=== PATIENT | female | born 1945 | race Caucasian/White ===

== ENCOUNTER 2021-05-20 02:55 | Inpatient (IN) | payer MEDICARE, SELFPAY ==
[2021-05-20] VITALS (28 sets, daily range): BP systolic 134–200; BP diastolic 68–120; PULSE 81–162; RESP 18–23; TEMP 36.6–36.9; O2SAT 94–99; BMI 30.9; BMI 32.8
--- NOTE | 2021-05-20 03:08 | ECG_ITS ---
APPROVED REPORT Exam: Resting ECG HR:155 bpm ECG Measurements Heart Rate 155 AXES QRSd 80 QRS 95 QT 262 T 66 QTc 420 Conclusion Atrial fibrillation with rapid ventricular response Rightward axis ST depression, consider subendocardial injury or digitalis effect Abnormal ECG Electronically signed by : Eric Maldonado MD 05/22/2021 20:43:38
--- NOTE | 2021-05-20 03:15 | XR_ITS ---
PROCEDURE INFORMATION: Exam: XR Chest Exam date and time: 05/20/2021 3:15 AM Age: 75 years old Clinical indication: Other: HTN, rapid heartrate; Additional info: HTN, rapid hr TECHNIQUE: Imaging protocol: XR of the chest. Views: 1 view. COMPARISON: No relevant prior studies available. FINDINGS: Lungs: Unremarkable. No consolidation. Pleural spaces: Unremarkable. No pleural effusion. No pneumothorax. Heart/Mediastinum: Unremarkable. No cardiomegaly. Bones/joints: Unremarkable. IMPRESSION: No acute findings.
[2021-05-20 03:24] LABS: Basophils # 0.3 K/mm3 (0-0.2); Basophils % 2.3 % (0.1-2.0); Eosinophils # 0.4 K/mm3 (0.0-0.4); Eosinophils % 3.2 % (0.1-12.0); Hematocrit 42.9 % (37.0-47.0); Hemoglobin 14.2 g/dL (12.2-16.2); Lymphocytes # 2.3 K/mm3 (0.7-4.5); Mean Corpuscular HGB Conc 33.2 g/dL (31.8-35.4); Mean Corpuscular Hemoglobin 29.7 pg (27.0-31.2); Mean Corpuscular Volume 89.5 fl (81-99); Mean Platelet Volume 8.2 fl (7.4-10.4); Monocytes # 0.4 K/mm3 (0.1-1.0); Monocytes % 3.1 % (1.7-9.3); Neutrophils # 8.7 K/mm3 (1.8-7.8); Neutrophils % 72.4 % (37.0-80.0); Platelet Count 376 K/mm3 (142-424); Red Blood Count 4.79 M/mm3 (4.20-5.40); Red Cell Distribution Width 14.9 % (11.5-17.5); White Blood Count 12.1 K/mm3 (4.8-10.8)
[2021-05-20 03:27] LABS: Chloride 93 mmol/L (98-107)
[2021-05-20 03:28] LABS: Potassium 3.7 mmoL/L (3.5-5.1); Sodium 135 mmol/L (136-145)
[2021-05-20 03:30] LABS: Amylase 46 U/L (30-110); Blood Urea Nitrogen 17 mg/dl (7-17); Creatinine Clearance Estimated 65 mL/min (50-200); Estimated Glomerular Filt Rate 82 ml/min (>60); GFR (African American) 99 ML/MIN (>60)
[2021-05-20 03:31] LABS: Alanine Aminotransferase 21 U/L (12-78); Albumin Level 4.4 g/dl (3.5-5.0); Albumin/Globulin Ratio 1.1 (1.1-1.8); Alkaline Phosphatase 80 U/L (38-126); Anion Gap 16.7 mEq/L (5-15); Aspartate Amino Transferase 25 U/L (14-36); Bilirubin,Total 0.2 mg/dl (0.2-1.3); Calcium 9.8 mg/dl (8.4-10.2); Carbon Dioxide 29 mmol/L (22.0-30.0); Globulin 3.9 g/dL (1.3-3.2); Glucose 161 mg/dl (74-100); Lipase 61 U/L (23-300); Magnesium 1.4 mg/dl (1.6-2.3); Total Protein,Serum 8.3 g/dl (6.3-8.2)
[2021-05-20 03:32] LABS: Coronavirus 19, PCR Not Detected (NotDetected); Influenza A, PCR Not Detected (NotDetected); Influenza B, PCR Not Detected (NotDetected)
[2021-05-20 03:36] LABS: C-Reactive Protein 36.6 mg/L (0-4)
[2021-05-20 03:45] LABS: Troponin I 0.02 ng/ml (0.00-0.034)
[2021-05-20 03:50] LABS: T4 (Thyroxine) 10.4 ug/dl (5.53-11.0)
[2021-05-20 04:02] LABS: Erythrocyte Sedimentation Rate 22 mm/hr (0-30)
[2021-05-20 04:04] LABS: Thyroid Stimulating Hormone 3.81 uIU/mL (0.465-4.68)
--- NOTE | 2021-05-20 04:20 | PC.NURSE ---
Increased Cardizem drip to 10mg/hr
--- NOTE | 2021-05-20 04:36 | HMH.EDARPALP ---
ED Disposition Clinical Impression: Atrial fibrillation Qualifiers: Atrial fibrillation type: unspecified Qualified Code(s): I48.91 - Unspecified atrial fibrillation Disposition: Admitted As Inpatient Condition on Discharge: Good Referrals: Radha Neville MD [Primary Care Provider] - - Critical Care Critical Care Time: No Attestation: On 05/20/21, the high probability of a clinically significant, sudden or life threatening deterioration of the following system(s) required my full and direct attention, intervention and personal management. The time I documented below is in addition to time spent performing reported procedures but includes the following listed in this critical care notation. Medical Decision Making - Medical Records Medical records reviewed: Yes: I reviewed the patient's medical records. - Frank Inquiry Pt receiving controlled substance: No Vital Signs: 05/20/21 03:10 05/20/21 03:31 05/20/21 03:35 Temperature 97.9 F Temperature Source Oral Pulse Rate 136 H 142 H Pulse Rate [Right] 162 H Respiratory Rate 22 19 18 Blood Pressure 186/107 H 147/68 H Blood Pressure [Right Arm] 180/120 H Blood Pressure Mean 112 94 Blood Pressure Mean [Right Arm] 140 Blood Pressure Source [Right Arm] Manual Cuff/ Auscultation Blood Pressure Position [Right Arm] Supine 02 Sat by Pulse Oximetry 99 97 98 Oxygen Delivery Method Room Air Room Air Room Air 05/20/21 03:57 05/20/21 04:02 05/20/21 04:10 Temperature Temperature Source Pulse Rate 104 H 107 H 124 H Pulse Rate [Right] Respiratory Rate 18 Blood Pressure 173/85 H 177/76 H 172/95 H Blood Pressure [Right Arm] Blood Pressure Mean 89 94 109 Blood Pressure Mean [Right Arm] Blood Pressure Source [Right Arm] Blood Pressure Position [Right Arm] 02 Sat by Pulse Oximetry 96 Oxygen Delivery Method Room Air Room Air Room Air 05/20/21 04:15 Temperature Temperature Source Pulse Rate 132 H Pulse Rate [Right] Respiratory Rate 19 Blood Pressure Blood Pressure [Right Arm] Blood Pressure Mean Blood Pressure Mean [Right Arm] Blood Pressure Source [Right Arm] Blood Pressure Position [Right Arm] 02 Sat by Pulse Oximetry 95 Oxygen Delivery Method Room Air - Lab Data Lab results reviewed: Yes: I reviewed the patient's lab results. Lab Results 05/20/21 03:09: WBC 12.1 H, RBC 4.79, Hgb 14.2, Hct 42.9, MCV 89.5, MCH 29.7, MCHC 33.2, RDW 14.9, Plt Count 376, MPV 8.2, Neut % (Auto) 72.4, Lymph % (Auto) 19.0, [place] % (Auto) 3.1, Eos % (Auto) 3.2, Baso % (Auto) 2.3 H, Neut # (Auto) 8.7 H, Lymph # (Auto) 2.3, [place] # (Auto) 0.4, Eos # (Auto) 0.4, Baso # (Auto) 0.3 H 05/20/21 03:09: Sodium 135 L, Potassium 3.7, Chloride 93 L, Carbon Dioxide 29, Anion Gap 16.7 H, BUN 17, Creatinine 0.70, Estimated Creat Clear 65, Estimated GFR 82, Est GFR ( Amer) 99, Glucose 161 H, Calcium 9.8, Total Bilirubin 0.2, AST 25, ALT 21, Alkaline Phosphatase 80, Troponin I 0.02, C-Reactive Protein 36.6 H, Total Protein 8.3 H, Albumin 4.4, Globulin 3.9 H, Albumin/Globulin Ratio 1.1, Amylase 46, Lipase 61, TSH 3.81, Thyroxine (T4) 10.4 05/20/21 03:09: ESR 22 05/20/21 03:09: Magnesium 1.4 L, Procalcitonin 0.060 05/20/21 03:28: SARS-CoV-2 (PCR) Not detected, Influenza A Untype (PCR) Not detected, Influenza Type B (PCR) Not detected Result diagrams: 05/20/21 03:09 05/20/21 03:09 Orders (Tests/Meds): ED MEDICATIONS Generic Name Dose Route Start Last Admin Trade Name Freq PRN Reason Stop Dose Admin Sodium Chloride 1,000 mls @ 999 mls/hr 05/20/21 03:30 05/20/21 03:15 Sod Chlor 0.9% 1000ml Bag IV 05/20/21 04:30 999 mls/hr .Q1H1M NILE Administration Diltiazem HCl 100 mg/ Sodium 100 mls @ 5 mls/hr 05/20/21 03:30 05/20/21 03:30 Chloride IV 06/19/21 03:29 5 mls/hr .Q20H NILE Administration Protocol Discontinued Medications Generic Name Dose Route Start Last Admin Trade Name Freq PRN Reason Stop Dose Admin
--- NOTE | 2021-05-20 04:56 | PC.NURSE ---
Dr Herron speaking to Dr Stringer for admission
--- NOTE | 2021-05-20 04:57 | PC.NURSE ---
lovenox dose per night watch
--- NOTE | 2021-05-20 05:26 | PC.NURSE ---
patient up to floor via stretcher.
[2021-05-20 06:10] LABS: POC Glucose,Bedside 149 (70-110)
[2021-05-20 06:27] LABS: Basophils # 0.1 K/mm3 (0-0.2); Basophils % 0.9 % (0.1-2.0); Eosinophils # 0.2 K/mm3 (0.0-0.4); Eosinophils % 2.3 % (0.1-12.0); Hematocrit 37.7 % (37.0-47.0); Lymphocytes # 1.6 K/mm3 (0.7-4.5); Lymphocytes % 16.5 % (10-50); Mean Corpuscular HGB Conc 32.9 g/dL (31.8-35.4); Mean Corpuscular Hemoglobin 29.6 pg (27.0-31.2); Mean Corpuscular Volume 89.9 fl (81-99); Mean Platelet Volume 8.3 fl (7.4-10.4); Monocytes # 0.3 K/mm3 (0.1-1.0); Monocytes % 2.7 % (1.7-9.3); Neutrophils # 7.7 K/mm3 (1.8-7.8); Neutrophils % 77.6 % (37.0-80.0); Platelet Count 251 K/mm3 (142-424); Red Cell Distribution Width 14.9 % (11.5-17.5); White Blood Count 9.9 K/mm3 (4.8-10.8)
[2021-05-20 06:29] LABS: Hemoglobin 12.4 g/dL (12.2-16.2)
[2021-05-20 07:03] LABS: Anion Gap 15.9 mEq/L (5-15); Blood Urea Nitrogen 15 mg/dl (7-17); Calcium 8.5 mg/dl (8.4-10.2); Carbon Dioxide 24 mmol/L (22.0-30.0); Chloride 99 mmol/L (98-107); Chol/HDL Ratio 6.4 (1-3.5); Cholesterol 166 mg/dl (140-200); Creatinine Clearance Estimated 69 mL/min (50-200); Estimated Glomerular Filt Rate 121 ml/min (>60); GFR (African American) 146 ML/MIN (>60); Glucose 151 mg/dl (74-100); HDL Cholesterol 26 mg/dl (40-60); Potassium 3.9 mmoL/L (3.5-5.1); Sodium 135 mmol/L (136-145); Triglycerides 142 mg/dl (30-150); VLDL Cholesterol 28 mg/dL (0-40)
[2021-05-20 07:13] LABS: Direct LDL Cholesterol 112.27 mg/dL (100-129)
[2021-05-20 07:14] LABS: Troponin I 0.02 ng/ml (0.00-0.034)
[2021-05-20 07:26] LABS: Microscopic, Urine URINE MICROSCOPIC (MICROSCOPIC)
[2021-05-20 07:27] LABS: Appearance,Urine CLEAR (Clear); Bilirubin,Urine Negative (Negative); Blood, Urine Negative (Negative); Color,Urine YELLOW (Yellow); Glucose,Urine (UA) Negative (Negative); Ketones,Urine Negative (Negative); Leukocyte Esterase,Urine Negative (Negative); Nitrate,Urine Negative (Negative); PH,Urine 6.5 (5.0-8.5); Protein,Urine TRACE (Negative); Specific Gravity, Urine 1.015 (1.005-1.030); Urobilinogen,Urine 0.2 EU/dl (0.2)
[2021-05-20 07:35] LABS: Bacteria,Urine Trace /lpf; RBC,Urine Occasional #/hpf (0-3)
[2021-05-20 10:21] LABS: Troponin I 0.02 ng/ml (0.00-0.034)
--- NOTE | 2021-05-20 10:37 | P.CONPHA_ITS ---
[facility] Pharmacy VTE Monitoring - Patient Demographics Admission date: 05/20/21 Report Date: 05/20/21 Time: 10:37 Allergies/Adverse Reactions: Patient Allergies No Known Allergies Allergy (Verified 05/20/21 03:15) Height: 1.63 m Weight: 87.203 kg Patient Problems: Current Active Problems Atrial fibrillation (Acute) - VTE Risk Labs: VTE Related Lab Results Hgb 12.4 g/dL (12.2-16.2) D 05/20/21 06:10 Hct 37.7 % (37.0-47.0) 05/20/21 06:10 Plt Count 251 K/mm3 (142-424) D 05/20/21 06:10 BUN 15 mg/dl (7-17) 05/20/21 06:10 Creatinine 0.50 mg/dl (0.52-1.04) L D 05/20/21 06:10 Estimated Creat Clear 69 mL/min (50-200) 05/20/21 06:10 - Prophylaxis VTE Prophylaxis Ordered?: Yes Types of VTE Prophylaxis: TEDS Knee High, Pharmacological Location of Applied Device: Bilateral Lower Extremeties Pharmacologic Type: Enoxaparin
--- NOTE | 2021-05-20 10:38 | HMH.PHAINT ---
MEDICATION RECONCILIATION COMPLETED ON PATIENT USING EXTERNAL FILL HISTORY FROM PHARMACY. -YESSICA CYR, DUNGD
--- NOTE | 2021-05-20 10:59 | PC.NURSE ---
Addendum entered by Lindsey Serrano RN 05/20/21 16:44: 1500 - HR 80's, cardizem gtt decreased to 5 mls/hr Addendum entered by Lindsey Serrano RN 05/20/21 15:34: 1300 - HR 80-90's, cardizem gtt decreased to 10 mls/hr Original Note: 0900 - HR 120's, cardizem gtt increased to 15 mls/hr
[2021-05-20 11:15] LABS: POC Glucose,Bedside 190 (70-110)
--- NOTE | 2021-05-20 11:37 | HMH.HP ---
*Admission Date: 05/20/21 *Chief complaint: Heart irregularity *History of present illness: This 75-year-old white female was admitted through the emergency room with an episode of atrial fibrillation. She states that she could tell a difference in how she was feeling over the past 4 days. She had some slight shortness of breath but no chest pain. The history she gives is a little unclear but it appears that she was hospitalized previously for heart irregularity. She had some sort of cardiac event in 1995. She states she did not have a heart catheterization at that point but did have an echocardiogram. A heart catheterization was performed by Dr. Lui Mercado in September 2014. This was at [facility] in [place]. She is a new patient of Dr. Burciaga. She is known diabetic and hypertensive. She also has a gout history. She has not been on blood thinners recently. [facility] History Medical History: Reports:: Atrial Fibrillation, Diabetes Mellitus Type 2 (Since 2003 diagnosis), Hyperlipidemia, Hypertension, Palpitations Denies:: Valvular Heart Disease *Have you ever received a pneumonia vaccine?: Yes *Have you received a flu vaccine this season?: Yes Other Medical History: Reports: Hypothyroidism (Levothyroxine 50 mcg daily) Other Surgeries: Yes: Appendectomy (Incidental February 1975), Cardiac Catheterization (September 2014 Dr. 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) *Travel in the last 8 weeks: None Family Hx:: Cancer (Father prostate, mother breast), Diabetes (Mother and brother), Alcoholism (Brother), Other (Sister of COVID-19) : 0 Para: 0 LMP comments: post menopausal Review of Systems - Constitutional Denies body ache(s), Denies chills - Eyes Denies change in vision - ENT Denies bleeding gums, Denies dizziness, Denies hoarseness, Denies neck pain, Denies throat swelling - *Cardiovascular Reports irregular heart rhythm, Reports leg swelling, Reports fast heart rate, Denies chest pain - *Respiratory Denies chest congestion, Denies cough - *Gastrointestinal Reports other (Complains of weight gain over the past several years), Denies abdominal pain - *Genitourinary Reports absent period - *Musculoskeletal Reports joint pain - Integumentary/Breasts Denies bleeding lesions - *Neurologic Denies seizure-like activity - Psychiatric Denies behavioral changes - Hematologic/Lymphatic Denies easy bleeding Meds Home Medications Medication Instructions Recorded Confirmed Type Levothyroxine Sodium 50 mcg PO DAILY 05/20/21 05/20/21 History [Levothyroxine 50mcg (0.05mg) Tab] Losartan/Hydrochlorothiazide 1 tab PO DAILY 05/20/21 05/20/21 History [Losartan-Hctz 100-25 mg Tab] Metoprolol Tartrate [Lopressor 100 100 mg PO BID 05/20/21 05/20/21 History mg Tablets] Potassium Chloride [Klor-Con M10] 10 meq PO DAILY 05/20/21 05/20/21 History allopurinoL [Allopurinol 100mg 100 mg PO DAILY 05/20/21 05/20/21 History tablet] glipiZIDE [Glucotrol 5mg tablet] 5 mg PO BID 05/20/21 05/20/21 History Allergies Allergy/AdvReac Type Severity Reaction Status Date / Time No Known Allergies Allergy Verified 05/20/21 03:15 Exam Vital signs and Labs for Last 24 Hours: Temp Pulse Resp BP Pulse Ox 98.1 F 97 H 19 146/69 H 96 05/20/21 08:00 05/20/21 11:01 05/20/21 11:01 05/20/21 11:01 05/20/21 11:01 Laboratory Results - last 24 hr 05/20/21 03:09: WBC 12.1 H, RBC 4.79, Hgb 14.2, Hct 42.9, MCV 89.5, MCH 29.7, MCHC 33.2, RDW 14.9, Plt Count 376, MPV 8.2, Neut % (Auto) 72.4, Lymph % (Auto) 19.0, [place] % (Auto) 3.1, Eos % (Auto) 3.2, Baso % (Auto) 2.3 H, Neut # (Auto) 8.7 H, Lymph # (Auto) 2.3, [place] # (Auto) 0.4, Eos # (Auto) 0.4, Baso # (Au
--- NOTE | 2021-05-20 12:26 | PC.NURSE ---
paged Dr. Akhtar for consult.
--- NOTE | 2021-05-20 12:28 | PC.NURSE ---
Spoke with Dr. Akhtar about consult.
--- NOTE | 2021-05-20 16:46 | PC.NURSE ---
No acute changes. Remains on room air. A-Fib on tely, HR 80-90's. BP much better controlled since adding lopressor. Pt independent w/ adl's. No needs voiced.
[2021-05-20 17:28] LABS: POC Glucose,Bedside 116 (70-110)
[2021-05-20 20:17] LABS: POC Glucose,Bedside 195 (70-110)
[2021-05-21] VITALS (14 sets, daily range): BP systolic 115–187; BP diastolic 65–92; PULSE 59–91; RESP 16–22; TEMP 36.5–36.8; O2SAT 95–100; BMI 33.3
--- NOTE | 2021-05-21 00:05 | ECG_ITS ---
APPROVED REPORT Exam: Resting ECG HR:63 bpm ECG Measurements Heart Rate 63 AXES RI 186 P 85 QRSd 104 QRS 55 QT 438 T 56 QTc 448 Conclusion Normal sinus rhythm Incomplete right bundle branch block Borderline ECG Electronically signed by : Eric Maldonado MD 05/22/2021 20:41:07
--- NOTE | 2021-05-21 00:36 | PC.NURSE ---
2330 patient converted to sr, with rate in the 60s. ekg obtained and placed on chart. 0010 dr. maldonado notified, new order received and carried out. cardizem drip stopped.
--- NOTE | 2021-05-21 06:17 | PC.NURSE ---
patient has maintained sb/sr 50s to 70s
[2021-05-21 08:02] LABS: Anion Gap 16.3 mEq/L (5-15); Blood Urea Nitrogen 15 mg/dl (7-17); Calcium 8.6 mg/dl (8.4-10.2); Carbon Dioxide 21 mmol/L (22.0-30.0); Chloride 101 mmol/L (98-107); Creatinine Clearance Estimated 70 mL/min (50-200); Estimated Glomerular Filt Rate 121 ml/min (>60); GFR (African American) 146 ML/MIN (>60); Glucose 100 mg/dl (74-100); Potassium 4.3 mmoL/L (3.5-5.1); Sodium 134 mmol/L (136-145)
[2021-05-21 11:06] LABS: POC Glucose,Bedside 116 (70-110)
[2021-05-21 11:06] LABS: POC Glucose,Bedside 130 (70-110)
--- NOTE | 2021-05-21 12:30 | HMH.ACPN2 ---
Internal Medicine - PN: Subj *Date: 05/21/21 *Time: 12:30 Interval history: The patient converted to normal sinus rhythm at 2330 last night. Cardizem drip was discontinued. She received 120 mg of Cardizem CD p.o. around 3:00 this morning. She remains in normal sinus rhythm but her blood pressures have been high. She is feeling well. Weight increase noted. Exam Vital signs and Labs for Last 24 Hours: Temp Pulse Resp BP Pulse Ox 98.3 F 72 22 187/85 H 100 05/21/21 11:21 05/21/21 10:54 05/21/21 10:54 05/21/21 10:54 05/21/21 10:54 Laboratory Results - last 24 hr 05/20/21 17:16: POC Glucose 116 H 05/20/21 19:59: POC Glucose 195 H 05/21/21 06:14: POC Glucose 116 H 05/21/21 06:25: Sodium 134 L, Potassium 4.3, Chloride 101, Carbon Dioxide 21 L, Anion Gap 16.3 H, BUN 15, Creatinine 0.50 L, Estimated Creat Clear 70, Estimated GFR 121, Est GFR ( Amer) 146, Glucose 100, Calcium 8.6 05/21/21 10:58: POC Glucose 130 H I & O for Last 24 hours: Intake & Output 05/19/21 05/20/21 05/21/21 05/22/21 11:59 11:59 11:59 11:59 Intake Total 2600 / 2600 2383 / 2383 Output Total 400 / 400 1300 / 1300 Balance 2200 / 2200 1083 / 1083 Weight 192 lb 4 oz 195 lb 3 oz - Constitutional no acute distress - *Routine HEENT Exam Head: Present: normocephalic Eye: Present: PERRL ENT: Present: mucous membranes moist - *Routine Neck Exam Present: supple. Absent: JVD - *Routine Respiratory Exam Present: CTA bilaterally, rales (Only a few bibasilar) - *Routine Cardiovascular Exam Present: RRR - *Routine Abdominal Exam Present: soft, obese. Absent: tenderness - *Routine Extremities Exam Present: edema (Trace) - *Routine Skin Exam Present: intact - *Routine Neurological Exam Present: alert, oriented X3 Assessment and Plan (1) Atrial fibrillation Status: Acute Qualifiers: Atrial fibrillation type: unspecified Qualified Code(s): I48.91 - Unspecified atrial fibrillation Category: Medical Code(s): I48.91 - Unspecified atrial fibrillation (2) Hypertensive cardiovascular disease Status: Acute Category: Medical Code(s): I11.9 - Hypertensive heart disease without heart failure (3) Type 2 diabetes mellitus Status: Acute Category: Medical Code(s): E11.9 - Type 2 diabetes mellitus without complications (4) Hypothyroidism (acquired) Status: Acute Category: Medical Code(s): E03.9 - Hypothyroidism, unspecified (5) Tremor Status: Acute Category: Medical Code(s): R25.1 - Tremor, unspecified (6) Mixed hyperlipidemia Status: Acute Category: Medical Code(s): E78.2 - Mixed hyperlipidemia - Assessment and plan all Dx Assessment and Plan for all problems:: Saline lock IV. Give additional Cardizem CD 120 mg now with the plan to continue 240 mg daily. Lasix 20 mg x 1 and recognition of the weight change. Echocardiogram is ordered.
[2021-05-21 15:51] LABS: POC Glucose,Bedside 126 (70-110)
--- NOTE | 2021-05-21 16:19 | PC.NURSE ---
No acute changes. Remains in SR, rate 70-80's. VS remain stable. Remains on room air. Is independent w/ adl's. Voiding w/o difficulty. No BM this shift. Sat up in recliner for most of morning. here to visit this AM. No complaints voiced. Currently sitting up in bed reading book.
[2021-05-21 21:43] LABS: POC Glucose,Bedside 157 (70-110)
[2021-05-22] VITALS: PULSE 70
--- NOTE | 2021-05-22 03:55 | PC.NURSE ---
No acute changes noted. Pt has rested well. No complaints voiced. VSS. HR 70s-80s. Pt has been up to chair some this shift. She remains on RA. Crackles noted to bases. No c/o of soa. Medications administered per mar. No other concerns. Will continue to monitor.
[2021-05-22 04:00] VITALS: BP 145/77; PULSE 70; PULSE 74; RESP 16; TEMP 36.6; O2SAT 96
[2021-05-22 06:13] LABS: POC Glucose,Bedside 100 (70-110)
[2021-05-22 08:02] VITALS: PULSE 88
[2021-05-22 08:45] VITALS: BP 154/78; PULSE 83; RESP 18; TEMP 36.7; O2SAT 100
--- NOTE | 2021-05-22 09:05 | HMH.CNCARD ---
History of Present Illness Consult date: 05/22/21 Requesting physician: Radha Neville Consult reason: atrial fibrillation Chief complaint: Atrial fib with RVR History of present illness: 75-year-old female admitted to [facility] with atrial fibrillation with RVR on 05/20/21. Patient stated she had not been feeling well for the past 4 days prior to arriving to the ED. Patient states increased shortness of breath and does feel like her heart was racing. Upon arrival to the ED patient was noted to be in atrial fibrillation with RVR with a heart rate of 155 bpm. Patient states she does have history of atrial fibrillation but that has been several years ago. Patient was started on a Cardizem drip at that time. Patient did convert to normal sinus rhythm and therefore Cardizem drip was DC'd. Patient was given 1 dose of diltiazem 120 mg per PCP for heart rate control and blood pressure control. Patient is not on any anticoagulants. Patient is receiving Lovenox SQ twice daily. hall monitor this a.m. reveals normal sinus with a heart rate of 72 bpm. Patient denies chest pain, tightness or pressure. Patient denies shortness of breath. Patient is not requiring supplemental oxygen due to pulse ox 96% on room air. Patient denies palpitations or dizziness. Patient states while her heart rate was racing she did experience the dizziness. Patient states once her heart rate slowed down the dizziness resolved. Patient does have history of diabetes which is controlled per patient. Patient does have history of hypertension and hyperlipidemia. Patient states she is not been seen by repair order clerk since 2014 in which she was evaluated by Dr. Mercado. In 2014 patient did undergo left heart catheterization in which patient states she was told her heart was just fine. Patient has had no cardiac work-up since 2015. Patient does have slight lower extremity edema. Patient is noted to be hypertensive this a.m. Patient is currently on beta-marry for heart rate and blood pressure control. Patient is on ARB for blood pressure control. No echocardiogram has been performed previously prior to this admission. Discussed plan of care with Dr. Akhtar. Orders were received from Dr. Akhtar. Patient will need to be started on Xarelto 20 mg daily due to Paroxsymal atrial fibrillation. Due to history of atrial fibrillation, patient is at an increased risk for stroke. ChADsvasc score 2. I did have a discussion with patient regarding starting on anticoagulant due to atrial fibrillation and high risk for stroke. Patient is to notify cardiology or PCP if bleeding occurs after starting the Xarelto. Patient is agreeable to start on anticoagulation. Echocardiogram to be obtained to assess LV function and valve status. Would recommend CNI to determine carotid artery stenosis due to atrial fibrillation. Recommend ischemic cardiac work-up on an outpatient basis such as a Lexiscan Myoview. Plan is for patient to be started on diltiazem 240 mg daily for better heart rate and blood pressure control this is per PCP. Will defer management of hypertension to PCP. Stop Lovenox injections due to starting Xarelto 20 mg this p.m. Thank you for allowing cardiology to participate in the care of this patient. [facility] History I have reviewed the patient's past medical history: Yes Medical History: Reports:: Atrial Fibrillation, Diabetes Mellitus Type 2 (Since 2003 diagnosis), Hyperlipidemia, Hypertension, Palpitations Denies:: Valvular Heart Disease *Have you ever received a pneumonia vaccine?: Yes *Have you received a flu vaccine this season?: Yes Other Medical History: Reports: Hypothyroidism (Levothyroxine 50 mcg daily) Other Surgeries: Yes: Appendectomy (Incidental February 1975), Cardiac Catheterization (September 2014 Dr. Lui Mercado [facility]), Cholecystectomy (February 1975), Tubal Ligation (In the ) Amputation: No Fractures: No - *Social History L
--- NOTE | 2021-05-22 10:38 | HMH.ACPN2 ---
Internal Medicine - PN: Subj *Date: 05/22/21 *Time: 10:38 Interval history: The patient remained stable and is ready for discharge. Cardiology has consulted on the patient. See that note. The patient will be discharged on diltiazem extended release 240 mg daily and will continue on Xarelto 20 mg daily. She will continue her other medications as prior to hospitalization. She will be seen in follow-up by Dr. Neville a week from today. Arrangements will also be made for cardiology follow-up. Exam Vital signs and Labs for Last 24 Hours: Temp Pulse Resp BP Pulse Ox 98.1 F 83 18 154/78 H 100 05/22/21 08:45 05/22/21 08:45 05/22/21 08:45 05/22/21 08:45 05/22/21 08:45 Laboratory Results - last 24 hr 05/21/21 06:14: POC Glucose 116 H 05/21/21 10:58: POC Glucose 130 H 05/21/21 15:43: POC Glucose 126 H 05/21/21 19:58: POC Glucose 157 H 05/22/21 06:02: POC Glucose 100 I & O for Last 24 hours: Intake & Output 05/19/21 05/20/21 05/21/21 05/22/21 11:59 11:59 11:59 11:59 Intake Total 2600 / 2600 2383 / 2383 1200 / 1200 Output Total 400 / 400 1300 / 1300 Balance 2200 / 2200 1083 / 1083 1200 / 1200 Weight 192 lb 4 oz 195 lb 3 oz - Constitutional no acute distress - *Routine HEENT Exam Head: Present: normocephalic Eye: Present: PERRL ENT: Present: mucous membranes moist - *Routine Neck Exam Absent: carotid bruit - Routine Chest/Breast/Axilla Exam Chest wall: Absent: tenderness - *Routine Respiratory Exam Present: rales (Some bibasilar rales) - *Routine Cardiovascular Exam Present: RRR. Absent: ectopic - *Routine Abdominal Exam Present: soft, obese. Absent: tenderness - *Routine Extremities Exam Present: edema (Trace) - *Routine Skin Exam Present: intact, warm. Absent: rash - *Routine Neurological Exam Present: alert, oriented X3 Assessment and Plan (1) Atrial fibrillation Status: Acute Qualifiers: Atrial fibrillation type: unspecified Qualified Code(s): I48.91 - Unspecified atrial fibrillation Category: Medical Code(s): I48.91 - Unspecified atrial fibrillation (2) Hypertensive cardiovascular disease Status: Acute Category: Medical Code(s): I11.9 - Hypertensive heart disease without heart failure (3) Type 2 diabetes mellitus Status: Acute Category: Medical Code(s): E11.9 - Type 2 diabetes mellitus without complications (4) Hypothyroidism (acquired) Status: Acute Category: Medical Code(s): E03.9 - Hypothyroidism, unspecified (5) Tremor Status: Acute Category: Medical Code(s): R25.1 - Tremor, unspecified (6) Mixed hyperlipidemia Status: Acute Category: Medical Code(s): E78.2 - Mixed hyperlipidemia - Assessment and plan all Dx Assessment and Plan for all problems:: As described above. Discharge on extended release diltiazem to 40 mg daily and Xarelto 20 mg a day. Other medications as prior to hospitalization including metoprolol 100 mg twice daily. She has not yet received her diltiazem dose this morning but this will be given prior to discharge.
[2021-05-22 11:21] LABS: POC Glucose,Bedside 128 (70-110)
--- NOTE | 2021-05-22 12:00 | PC.NURSE ---
Discharge education provided to pt and her , questions encouraged and answered. Pt voices that she would like to eat her lunch tray and then will be ready for discharge.
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
== END 2021-05-22 12:40 | disposition home or self-care (01) | DRG 310 ==
LOC: ER 04:57 → 2ND 05:06
PROVIDERS: Admitting Provider Family Medicine; Emergency Provider Emergency Medicine; PCP Family Medicine; Visit Provider Family Medicine
DX: I48.91 Unspecified atrial fibrillation (principal); Z20.822 Contact with and (suspected) exposure to COVID-19; E11.9 Type 2 diabetes mellitus without complications; I10 Essential (primary) hypertension; I48.92 Unspecified atrial flutter; E03.9 Hypothyroidism, unspecified; E78.2 Mixed hyperlipidemia; M10.9 Gout, unspecified; Z79.84 Long term (current) use of oral hypoglycemic drugs
CPT/HCPCS: 36415; 71045; 80048; 80053; 80061; 81001; 82150; 82962; 83690; 83735; 84145; 84436; 84443; 84484; 85025; 85651; 86140; 93005; 96365; 96366; 96372; 99284; U0003

== ENCOUNTER → 2021-05-31 13:11 | Outpatient (CLI) | payer MEDICARE, SELFPAY ==
--- NOTE | 2021-05-31 13:37 | ECG_ITS ---
APPROVED REPORT Exam: Resting ECG HR:63 bpm ECG Measurements Heart Rate 63 AXES TN 192 P 69 QRSd 96 QRS 39 QT 442 T 61 QTc 452 Conclusion Normal sinus rhythm Normal ECG Electronically signed by : Eric Maldonado MD 05/31/2021 20:30:21
== END ==
PROVIDERS: PCP Family Medicine; Visit Provider Family Medicine
DX: I49.9 Cardiac arrhythmia, unspecified (principal)
CPT/HCPCS: 93005

== ENCOUNTER → 2021-06-08 14:45 | Outpatient (CLI) | payer MEDICARE, SELFPAY ==
--- NOTE | 2021-06-08 14:46 | CA_ITS ---
APPROVED REPORT EXAM: Comprehensive 2D, Doppler, and color-flow Echocardiogram Lens Assistant: Mini Lewis RVT Ht: 5 ft 4 in Wt: 183lbs BSA: 1.88 BP: 160/80 mmHg Indications: A-FIB, Edema,HTN,Palpitations, DM, HLD 2D Dimensions LVOT 1.75 cm (M/F) 1.5-2.5 LA Volume 27.90 mL LA Volume Index 14.856935 mL/m2 (M/F) 16-34 M-Mode Dimensions RVDd 2.69 cm (0.9-2.6) LA Diam 3.86 cm (1.9-4.0) LVDd 4.07 cm (3.5-5.7) Ao Diam 2.19 cm (2.0-3.7) LVDs 2.30 cm (3.5-5.7) IVSd 1.06 cm (0.6-1.1) PWd 0.67 cm (0.6-1.1) EF (Teich) 75.20% FS 43.50% EDV (Teich) 72.90 mL TAPSE 2.87 (<1.7) ESV (Teich) 18.10 mL LV Diastology E Decel Time 207.00 (160-240 msec) E/A Ratio 1.76 MED E' 7.60 (< 7 cm/sec) E'/MED E' Ratio 14.88 (>14) LAT E' 12.00 (<10 cm/sec) E/LAT E' Ratio 9.42 (>14) Mitral Valve MV E Max Werner. 113.00 (40-130 cm/s) MV A Velocity 64.00 (40-130 cm/s) E/A Ratio 1.76 MV Decel. Time 207.00 (160-240 ms) MV PHT 61.00 ms Pulmonary Valve PV Peak Velocity 89.00 (50-150 cm/s) Tricuspid Valve TR P. Velocity 333.00 cm/s RAP Estimate 10.00 mmHg RVSP 54.40 mmHg Left Ventricle Left atrium is mildly enlarged, left ventricle is normal size, mild concentric left ventricular hypertrophy, visually estimated ejection fraction 55% with no regional wall motion abnormality. Diastolic parameters are inconclusive. Right Ventricle Right atrium and right ventricle moderately enlarged with normal contractility. Aortic Valve Aortic valve is minimally thickened and fibrosed, there is no aortic stenosis or aortic insufficiency. Mitral Valve Mitral valve leaflets are minimally thickened, there is mild mitral regurgitation. Tricuspid Valve Tricuspid valve is grossly normal, there is moderate tricuspid regurgitation, calculated right ventricular systolic pressure is 54 mmHg. Pulmonic Valve Pulmonic valve is poorly visualized. Great Vessels Aortic root is normal size. Inferior vena cava is normal size with normal inspiratory collapse. Pericardium No significant pericardial effusion noted. Conclusion 1. Biatrial enlargement, normal left ventricular size, visually estimated ejection fraction 55% with no regional wall motion abnormality, diastolic parameters are inconclusive. 2. Moderately enlarged right ventricle with normal contractility. 3. Trace mitral and moderate tricuspid regurgitation, calculated right ventricular systolic pressure is 54 mmHg. 4. No significant pericardial effusion noted. 5. Inferior vena cava is normal size with normal inspiratory collapse. Electronically signed by : Maikel Winston MD 06/09/2021 13:52:20
== END ==
PROVIDERS: PCP Family Medicine; Visit Provider Urology
DX: I48.0 Paroxysmal atrial fibrillation (principal)
CPT/HCPCS: 93306

== ENCOUNTER → 2021-08-17 09:47 | Outpatient (CLI) | payer MEDICARE, SELFPAY ==
--- NOTE | 2021-08-17 09:53 | MM_ITS ---
PROCEDURE INFORMATION: Exam: MG Bilateral Screening 3D Mammography Exam date and time: 08/17/2021 9:53 AM Age: 75 years old Clinical indication: Screening mammogram TECHNIQUE: Imaging protocol: Bilateral screening tomosynthesis and 2D mammography including computer-aided detection (CAD) when performed. COMPARISON: MG MM SCREENING MAMMOGRAM 08/15/2020 10:47 AM FINDINGS: MAMMOGRAPHY: Breast composition: The breast tissue is extremely dense, limiting the sensitivity of mammography. Mass: None. Architectural distortion: No new or suspicious architectural distortion. Calcifications: Stable benign-appearing calcifications are present. No new or suspicious cluster of microcalcifications have developed. Asymmetric density: No new or suspicious asymmetric density is present Skin thickening: None. Axillary adenopathy: None. IMPRESSION: No mammographic evidence of malignancy. Recommend annual screening mammography unless otherwise clinically indicated. ASSESSMENT: BI-RADS category 2: Benign
== END ==
PROVIDERS: PCP Family Medicine; Visit Provider Family Medicine
DX: Z12.31 Encounter for screening mammogram for malignant neoplasm of breast (principal)
CPT/HCPCS: 77063; 77067

== ENCOUNTER → 2021-08-28 13:40 | Outpatient (CLI) | payer MEDICARE, SELFPAY ==
[2021-08-28 16:18] LABS: Chloride 98 mmol/L (98-107)
[2021-08-28 16:19] LABS: Potassium 3.7 mmoL/L (3.5-5.1); Sodium 135 mmol/L (136-145)
[2021-08-28 16:21] LABS: Alanine Aminotransferase 21 U/L (12-78); Alkaline Phosphatase 63 U/L (38-126); Aspartate Amino Transferase 31 U/L (14-36); Bilirubin,Total 0.2 mg/dl (0.2-1.3); Blood Urea Nitrogen 18 mg/dl (7-17); Estimated Glomerular Filt Rate 98 ml/min (>60); GFR (African American) 119 ML/MIN (>60)
[2021-08-28 16:22] LABS: Albumin Level 4.3 g/dl (3.5-5.0); Albumin/Globulin Ratio 1.3 (1.1-1.8); Anion Gap 13.7 mEq/L (5-15); Calcium 9.2 mg/dl (8.4-10.2); Carbon Dioxide 27 mmol/L (22.0-30.0); Globulin 3.4 g/dL (1.3-3.2); Glucose 71 mg/dl (74-100); Total Protein,Serum 7.7 g/dl (6.3-8.2)
[2021-08-28 17:05] LABS: Hemoglobin A1C 6.3 % (4.0-6.0)
== END ==
PROVIDERS: Visit Provider Family Medicine
DX: E11.9 Type 2 diabetes mellitus without complications (principal); Z79.84 Long term (current) use of oral hypoglycemic drugs
CPT/HCPCS: 36415; 80053; 83036

== ENCOUNTER 2021-09-02 16:13 | Emergency (ER) | payer MEDICARE, SELFPAY ==
[2021-09-02 16:14] VITALS: BP 196/72; PULSE 86; RESP 18; TEMP 36.8; O2SAT 99; BMI 31.7
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
--- NOTE | 2021-09-02 17:38 | PC.NURSE ---
BACK FROM CT
[2021-09-02 18:46] VITALS: BP 125/65; PULSE 78; RESP 16; TEMP 36.6; O2SAT 98
== END 2021-09-02 18:48 | disposition home or self-care (01) ==
PROVIDERS: Emergency Provider Emergency Medicine; PCP Family Medicine
DX: Z04.1 Encounter for examination and observation following transport accident (principal); V49.9XXA Car occupant (driver) (passenger) injured in unspecified traffic accident, initial encounter; Y92.488 Other paved roadways as the place of occurrence of the external cause
CPT/HCPCS: 70450; 72125; 99282

== ENCOUNTER 2021-10-21 04:39 | Inpatient (IN) | payer MEDICARE, SELFPAY ==
[2021-10-21] VITALS (15 sets, daily range): BP systolic 103–165; BP diastolic 49–105; PULSE 84–113; RESP 16–20; TEMP 36.4–37; O2SAT 93–100; BMI 31.9; BMI 25.0; BMI 32.6; BMI 32.5
--- NOTE | 2021-10-21 04:33 | ECG_ITS ---
APPROVED REPORT Exam: Resting ECG HR:106 bpm ECG Measurements Heart Rate 106 AXES QRSd 109 QRS 88 QT 350 T -3 QTc 412 Conclusion ATRIAL FIBRILLATION WITH RAPID VENTRICULAR RESPONSE LOW QRS VOLTAGE IN PRECORDIAL LEADS [QRS DEFLECTION < 1.0 mV IN CHEST LEADS] INCOMPLETE RIGHT BUNDLE BRANCH BLOCK [90+ ms QRS DURATION, TERMINAL R IN V1/V2, 40+ ms S IN I/aVL/V4/V5/V6] MODERATE ST DEPRESSION [0.05+ mV ST DEPRESSION] ABNORMAL QRS-T ANGLE [QRS-T AXIS DIFFERENCE > 60] ABNORMAL ECG UNCONFIRMED REPORT Electronically signed by : Eric Maldonado MD 10/26/2021 19:07:37
--- NOTE | 2021-10-21 04:40 | XR_ITS ---
PROCEDURE INFORMATION: Exam: XR Chest Exam date and time: 10/21/2021 4:40 AM Age: 75 years old Clinical indication: Other: A fib; Additional info: Afib TECHNIQUE: Imaging protocol: XR of the chest. Views: 1 view. COMPARISON: CR XR CHEST PORTABLE 05/20/2021 3:28 AM FINDINGS: Tubes, catheters and devices: Leads overlying chest. Lungs: No definite consolidation. Pleural spaces: No definite pleural effusion. No pneumothorax. Heart/Mediastinum: Mild cardiomegaly. Bones/joints: No displaced fracture. Soft tissues: Unremarkable. IMPRESSION: Mild cardiomegaly.
[2021-10-21 05:03] LABS: Coronavirus 19, PCR Not Detected (NotDetected); Influenza A, PCR Not Detected (NotDetected); Influenza B, PCR Not Detected (NotDetected)
[2021-10-21 05:10] LABS: Basophils # 0.1 K/mm3 (0-0.2); Basophils % 0.7 % (0.1-2.0); Eosinophils # 0.1 K/mm3 (0.0-0.4); Eosinophils % 0.4 % (0.1-12.0); Hematocrit 37.8 % (37.0-47.0); Lymphocytes # 1.2 K/mm3 (0.7-4.5); Lymphocytes % 9.9 % (10-50); Mean Corpuscular HGB Conc 31.9 g/dL (31.8-35.4); Mean Corpuscular Hemoglobin 28.7 pg (27.0-31.2); Mean Platelet Volume 9.3 fl (7.4-10.4); Monocytes # 0.4 K/mm3 (0.1-1.0); Monocytes % 3.2 % (1.7-9.3); Neutrophils # 10.5 K/mm3 (1.8-7.8); Neutrophils % 85.9 % (37.0-80.0); Platelet Count 333 K/mm3 (142-424); Red Cell Distribution Width 15.7 % (11.5-17.5); White Blood Count 12.3 K/mm3 (4.8-10.8)
[2021-10-21 05:11] LABS: MANUAL DIFFERENTIAL MANUAL DIFFERENTIAL (MANUAL DIFF)
[2021-10-21 05:15] LABS: Alanine Aminotransferase 39 U/L (12-78); Albumin Level 4.2 g/dl (3.5-5.0); Albumin/Globulin Ratio 1.4 (1.1-1.8); Alkaline Phosphatase 60 U/L (38-126); Anion Gap 12.8 mEq/L (5-15); Aspartate Amino Transferase 33 U/L (14-36); Bilirubin,Total 0.5 mg/dl (0.2-1.3); Blood Urea Nitrogen 18 mg/dl (7-17); Calcium 9.1 mg/dl (8.4-10.2); Carbon Dioxide 28 mmol/L (22.0-30.0); Chloride 87 mmol/L (98-107); Creatinine Clearance Estimated 54 mL/min (50-200); Estimated Glomerular Filt Rate 70 ml/min (>60); GFR (African American) 85 ML/MIN (>60); Globulin 2.9 g/dL (1.3-3.2); Glucose 179 mg/dl (74-100); Magnesium 1.3 mg/dl (1.6-2.3); Potassium 3.8 mmoL/L (3.5-5.1); Sodium 124 mmol/L (136-145); Total Protein,Serum 7.1 g/dl (6.3-8.2)
[2021-10-21 05:19] LABS: C-Reactive Protein 47.9 mg/L (0-4)
[2021-10-21 05:21] LABS: Lymphocytes % 10 % (10-50); Monocytes % 3 % (2-9); Neutrophils % 87 % (42-76); Platelet Estimate Normal; Spherocytes 2+; Total Cells Counted 100
[2021-10-21 05:25] LABS: NT Pro Brain Natriuretic Pep. 4670 pg/mL (0-125)
[2021-10-21 05:29] LABS: Troponin I < 0.01 ng/ml (0.00-0.034)
[2021-10-21 05:33] LABS: Erythrocyte Sedimentation Rate 25 mm/hr (0-30)
[2021-10-21 05:34] LABS: Procalcitonin 0.062 ng/mL (0.0-2.0); T4 (Thyroxine) 10.1 ug/dl (5.53-11.0)
[2021-10-21 05:43] LABS: Microscopic, Urine URINE MICROSCOPIC (MICROSCOPIC)
[2021-10-21 05:45] LABS: Appearance,Urine CLEAR (Clear); Bilirubin,Urine Negative (Negative); Blood, Urine Negative (Negative); Color,Urine YELLOW (Yellow); Glucose,Urine (UA) Negative (Negative); Ketones,Urine Negative (Negative); Leukocyte Esterase,Urine Negative (Negative); Nitrate,Urine Negative (Negative); Protein,Urine 2+ (Negative); Urobilinogen,Urine 0.2 EU/dl (0.2)
[2021-10-21 05:47] LABS: Thyroid Stimulating Hormone 5.42 uIU/mL (0.465-4.68)
[2021-10-21 05:52] LABS: Amorphous Sediment,Urine 2+ /lpf; Bacteria,Urine 1+ /lpf; Squamous Epithelial Cell,Urine Occasional #/hpf (0-5); WBC,Urine Occasional #/hpf (0-3)
--- NOTE | 2021-10-21 05:57 | HMH.EDARPALP ---
ED Disposition Clinical Impression: Atrial fibrillation with rapid ventricular response, Elevated brain natriuretic peptide (BNP) level Disposition: Admitted As Inpatient Condition on Discharge: Good - Critical Care Critical Care Time: No Attestation: On 10/21/21, the high probability of a clinically significant, sudden or life threatening deterioration of the following system(s) required my full and direct attention, intervention and personal management. The time I documented below is in addition to time spent performing reported procedures but includes the following listed in this critical care notation. Medical Decision Making - Medical Records Medical records reviewed: Yes: I reviewed the patient's medical records. - Frank Inquiry Pt receiving controlled substance: No Vital Signs: 10/21/21 04:18 Temperature 98.2 F Temperature Source Oral Pulse Rate [Apical] 107 H Respiratory Rate 20 Blood Pressure [Right Arm] 138/105 H Blood Pressure Mean [Right Arm] 116 Blood Pressure Source [Right Arm] Automatic Cuff Blood Pressure Position [Right Arm] Sitting 02 Sat by Pulse Oximetry 96 Oxygen Delivery Method Room Air - Lab Data Lab results reviewed: Yes: I reviewed the patient's lab results. Lab Results 10/21/21 04:34: ESR 25 10/21/21 04:34: Troponin I < 0.01, C-Reactive Protein 47.9 H, Procalcitonin 0.062, TSH 5.42 H, Thyroxine (T4) 10.1 10/21/21 04:34: SARS-CoV-2 (PCR) Not detected, Influenza A Untype (PCR) Not detected, Influenza Type B (PCR) Not detected 10/21/21 04:34: WBC 12.3 H, RBC 4.20, Hgb 12.0 L, Hct 37.8, MCV 90.0, MCH 28.7, MCHC 31.9, RDW 15.7, Plt Count 333, MPV 9.3, Neut % (Auto) 85.9 H, Lymph % (Auto) 9.9 L, [place] % (Auto) 3.2, Eos % (Auto) 0.4, Baso % (Auto) 0.7, Neut # (Auto) 10.5 H, Lymph # (Auto) 1.2, [place] # (Auto) 0.4, Eos # (Auto) 0.1, Baso # (Auto) 0.1, Total Counted 100, Neutrophils % (Manual) 87 H, Lymphocytes % (Manual) 10, Monocytes % (Manual) 3, Platelet Estimate Normal, Spherocytes 2+ 10/21/21 04:34: Sodium 124 L, Potassium 3.8, Chloride 87 L, Carbon Dioxide 28, Anion Gap 12.8, BUN 18 H, Creatinine 0.80, Estimated Creat Clear 54, Estimated GFR 70, Est GFR ( Amer) 85, Glucose 179 H, Calcium 9.1, Magnesium 1.3 L, Total Bilirubin 0.5, AST 33, ALT 39, Alkaline Phosphatase 60, NT-Pro-B Natriuret Pep 4670 H, Total Protein 7.1, Albumin 4.2, Globulin 2.9, Albumin/Globulin Ratio 1.4 10/21/21 05:04: Urine Color Yellow, Urine Appearance Clear, Urine pH 6.0, Ur Specific [place] 1.020, Urine Protein 2+, Urine Glucose (UA) Negative, Urine Ketones Negative, Urine Blood Negative, Urine Nitrate Negative, Urine Bilirubin Negative, Urine Urobilinogen 0.2, Ur Leukocyte Esterase Negative, Urine WBC Occasional, Ur Squamous Epith Cells Occasional, Amorphous Sediment 2+, Urine Bacteria 1+ Result diagrams: 10/21/21 04:34 10/21/21 04:34 Orders (Tests/Meds): ED MEDICATIONS Generic Name Dose Route Start Last Admin Trade Name Freq PRN Reason Stop Dose Admin Sodium Chloride 1,000 mls @ 999 mls/hr 10/21/21 04:45 10/21/21 05:06 Sod Chlor 0.9% 1000ml Bag IV 10/21/21 05:45 999 mls/hr .Q1H1M NILE Administration Diltiazem HCl 100 mg/ Sodium 100 mls @ 5 mls/hr 10/21/21 05:00 10/21/21 05:07 Chloride IV 11/20/21 04:59 5 mls/hr .Q20H NILE Administration Protocol Discontinued Medications Generic Name Dose Route Start Last Admin Trade Name Freq PRN Reason Stop Dose Admin Diltiazem HCl 10 mg 10/21/21 04:40 10/21/21 04:55 Diltiazem 25mg/5ml Vial IV 10/21/21 04:41 10 mg ONCE ONE Administration ORDERS Category Date Time Status Troponin I Q3H Lab 10/21/21 07:45 Ordered Troponin I Q3H Lab 10/21/21 10:45 Ordered - Radiology Data #1 Image(s): Chest Image Reviewed: Yes I have reviewed radiologist's interpretation Preliminary Findings: Normal/NAD - ECG Data Tracing #1 Arrhythmias present: afib Ischemic changes: non-specific ST-T wave changes - Physician
--- NOTE | 2021-10-21 06:24 | PC.NURSE ---
Dr. Herron s/w Dr. Stringer. Notified [facility] for bed assignment.
--- NOTE | 2021-10-21 06:25 | PC.NURSE ---
s/w pt's and updated on pt poc and adx to [facility]
--- NOTE | 2021-10-21 07:32 | PC.NURSE ---
report called to floor
--- NOTE | 2021-10-21 08:12 | P.CONPHA_ITS ---
[facility] Pharmacy VTE Monitoring - Patient Demographics Admission date: 10/21/21 Report Date: 10/21/21 Time: 08:12 Allergies/Adverse Reactions: Patient Allergies No Known Allergies Allergy (Verified 09/06/21 11:34) Height: 1.65 m Weight: 68.039 kg Patient Problems: Current Active Problems Atrial fibrillation with rapid ventricular response (Acute) Elevated brain natriuretic peptide (BNP) level (Acute) - VTE Risk Labs: VTE Related Lab Results Hgb 12.0 g/dL (12.2-16.2) L 10/21/21 04:34 Hct 37.8 % (37.0-47.0) 10/21/21 04:34 Plt Count 333 K/mm3 (142-424) 10/21/21 04:34 BUN 18 mg/dl (7-17) H 10/21/21 04:34 Creatinine 0.80 mg/dl (0.52-1.04) 10/21/21 04:34 Estimated Creat Clear 54 mL/min (50-200) 10/21/21 04:34 - Prophylaxis VTE Prophylaxis Ordered?: Yes Types of VTE Prophylaxis: TEDS Knee High, Pharmacological Location of Applied Device: Bilateral Lower Extremeties Pharmacologic Type: Other (XARELTO)
--- NOTE | 2021-10-21 08:12 | HMH.PHAINT ---
MEDICATION RECONCILIATION COMPLETED ON PATIENT USING EXTERNAL FILL HISTORY FROM PHARMACY. -YESSICA CYR, DUNGD
[2021-10-21 08:20] LABS: Troponin I < 0.01 ng/ml (0.00-0.034)
--- NOTE | 2021-10-21 09:20 | HMH.HP ---
*Admission Date: 10/21/21 *Chief complaint: heart racing *History of present illness: Ms. Winkler is a 75-year-old female with a history of type 2 diabetes, paroxysmal atrial fib, hypothyroidism, and hypertension. She states she has been on diltiazem 240 mg since May 2021 and it was working well to control her heart rate in the 60 to 70 bpm range. She states Saturday she began feeling more fatigued and then noticed that her heart rate was increasing, as was her blood pressure. She states her rate was in the 140s at times at home, but she was unable to get to the hospital due to the weather. Her heart rate increased with any activity and she could feel her heart rate beating in her ears. She states she had a headache and pain through her face and she became very dizzy. She was transported to the emergency room and was found to be in atrial fib. She was placed on a Cardizem drip and admitted. Her control tower radio operator is Dr. Mercado, but she has also been seeing Dr. Akhtar's group since May. [facility] History I have reviewed the patient's past medical history: Yes Medical History: Reports:: Atrial Fibrillation, Diabetes Mellitus Type 2, Hyperlipidemia, Hypertension, Palpitations Denies:: Valvular Heart Disease *Have you ever received a pneumonia vaccine?: Yes *Have you received a flu vaccine this season?: Yes Other Medical History: Reports: Hypothyroidism Other Surgeries: Yes: Appendectomy (Incidental February 1975), Cardiac Catheterization (September [address] Lui Mercado [facility]), Cholecystectomy (February 1975), Tubal Ligation (In the ) Amputation: No Fractures: No - *Social History Smoking Status: Never smoker Alcohol Intake: never *Occupational Status:: retired *Travel in the last 8 weeks: None Family Hx:: Cancer (Father prostate, mother breast), Diabetes (Mother and brother), Alcoholism (Brother), Other (Sister of COVID-19) Review of Systems - Constitutional Denies body ache(s), Denies chills, Denies fever(s) - Eyes Denies blurry vision, Denies double vision - ENT Reports nasal congestion, Denies sore throat - *Cardiovascular Reports chest pain, Reports shortness of breath, Reports shortness of breath with activity, Reports lightheadedness - *Respiratory Reports cough, Denies chest congestion - *Gastrointestinal Reports heartburn, Denies abdominal pain, Denies loose stools, Denies nausea, Denies vomiting - *Genitourinary Denies difficulty urinating, Denies painful urination - *Musculoskeletal Denies body aches - *Neurologic Reports headache(s), Reports dizziness, Reports weakness, Denies seizure-like activity Meds Home Medications Medication Instructions Recorded Confirmed Type Levothyroxine Sodium 50 mcg PO DAILY 05/20/21 10/21/21 History [Levothyroxine 50mcg (0.05mg) Tab] Losartan/Hydrochlorothiazide 1 tab PO DAILY 05/20/21 10/21/21 History [Losartan-Hctz 100-25 mg Tab] Metoprolol Tartrate [Lopressor 100 100 mg PO BID 05/20/21 10/21/21 History mg Tablets] Potassium Chloride [Klor-Con M10] 10 meq PO BID 05/20/21 10/21/21 History allopurinoL [Allopurinol 100mg 100 mg PO DAILY 05/20/21 10/21/21 History tablet] glipiZIDE [Glucotrol 5mg tablet] 5 mg PO BID 05/20/21 10/21/21 History Magnesium Oxide [Mag-Ox 400mg Tab] 400 mg PO BID 10/21/21 10/21/21 History Rivaroxaban [Xarelto 20mg Tablet*] 20 mg PO QPMWITHMEAL 10/21/21 10/21/21 History dilTIAZem HCl [Diltiazem 240mg 240 mg PO DAILY 10/21/21 10/21/21 History 24Hr ER Cap] Allergies Allergy/AdvReac Type Severity Reaction Status Date / Time No Known Allergies Allergy Verified 09/06/21 11:34 Exam Vital signs and Labs for Last 24 Hours: Temp Pulse Resp BP Pulse Ox 98 F 100 H 16 112/78 94 L 10/21/21 07:57 10/21/21 07:57 10/21/21 07:57 10/21/21 07:57 10/21/21 07:00 Laboratory Results - last 24 hr 10/21/21 04:34: ESR 25 10/21/21 04:34: Troponin I < 0.01, C-Reactive Protein 47.9 H, Procalcitonin 0.062,
[2021-10-21 12:14] LABS: Troponin I < 0.01 ng/ml (0.00-0.034)
--- NOTE | 2021-10-21 16:57 | PC.NURSE ---
PT IS SITTING UP IN THE CHAIR. NO COMPLAINTS OF DISCOMFORT. ALERT AND ORIENTED X3. EATING AND DRINKING WELL. PT AMBULATES TO THE BATHROOM WITH 1 ASSIST. AFIB ON TELEMETRY WITH HR 100-115. CARDIZEM DRIP AT 5MG/HR. LUNG SOUNDS CLEAR. ABDOMEN SOFT/NON TENDER WITH ACTIVE BOWEL SOUNDS. WILL CONTINUE TO MONITOR.
[2021-10-22] VITALS (14 sets, daily range): BP systolic 130–154; BP diastolic 71–92; PULSE 80–130; RESP 20–26; TEMP 36.6–37.1; O2SAT 95–99
--- NOTE | 2021-10-22 06:26 | PC.NURSE ---
pt has rested well this shift, is up to the chair this morning, telemetry shows a fib, HR 98-113, systolic BP 130-165, cardizem gtt currently at 5 mg/hr, no complaints of SOA or chest pain, remains on room air with O2 sats 95-97%, has ambulated to this shift with standby assist
[2021-10-22 08:13] LABS: Basophils # 0.1 K/mm3 (0-0.2); Eosinophils # 0.2 K/mm3 (0.0-0.4); Eosinophils % 1.7 % (0.1-12.0); Hematocrit 35.8 % (37.0-47.0); Hemoglobin 11.8 g/dL (12.2-16.2); Lymphocytes # 1.6 K/mm3 (0.7-4.5); Mean Corpuscular HGB Conc 33.1 g/dL (31.8-35.4); Mean Corpuscular Hemoglobin 28.8 pg (27.0-31.2); Mean Corpuscular Volume 87.1 fl (81-99); Mean Platelet Volume 9.9 fl (7.4-10.4); Monocytes # 0.3 K/mm3 (0.1-1.0); Monocytes % 3.2 % (1.7-9.3); Neutrophils # 7.2 K/mm3 (1.8-7.8); Neutrophils % 77.1 % (37.0-80.0); Platelet Count 273 K/mm3 (142-424); Red Blood Count 4.12 M/mm3 (4.20-5.40); Red Cell Distribution Width 16.1 % (11.5-17.5); White Blood Count 9.3 K/mm3 (4.8-10.8)
[2021-10-22 08:21] LABS: Chloride 97 mmol/L (98-107); Sodium 126 mmol/L (136-145)
[2021-10-22 08:24] LABS: Blood Urea Nitrogen 18 mg/dl (7-17); Calcium 9.1 mg/dl (8.4-10.2); Carbon Dioxide 21 mmol/L (22.0-30.0); Creatinine Clearance Estimated 68 mL/min (50-200); Estimated Glomerular Filt Rate 82 ml/min (>60); GFR (African American) 99 ML/MIN (>60); Glucose 135 mg/dl (74-100)
[2021-10-22 08:25] LABS: Magnesium 1.5 mg/dl (1.6-2.3)
--- NOTE | 2021-10-22 14:00 | HMH.ACPN2 ---
Internal Medicine - PN: Subj *Date: 10/22/21 *Time: 14:00 Interval history: She normally takes Metoprolol 100mg BID, but this was not ordered on admission. Will restart this today, 100mg Succinate bid. She continues with HRates 90- 120 range. Still on Diltiazem drip. Clinically stable otherwise. Exam Vital signs and Labs for Last 24 Hours: Temp Pulse Resp BP Pulse Ox 98.7 F 116 H 20 152/84 H 97 10/22/21 12:00 10/22/21 12:00 10/22/21 12:00 10/22/21 12:00 10/22/21 12:00 Laboratory Results - last 24 hr 10/22/21 07:40: WBC 9.3, RBC 4.12 L, Hgb 11.8 L, Hct 35.8 L, MCV 87.1, MCH 28.8, MCHC 33.1, RDW 16.1, Plt Count 273, MPV 9.9, Neut % (Auto) 77.1, Lymph % (Auto) 17.0, [place] % (Auto) 3.2, Eos % (Auto) 1.7, Baso % (Auto) 1.0, Neut # (Auto) 7.2, Lymph # (Auto) 1.6, [place] # (Auto) 0.3, Eos # (Auto) 0.2, Baso # (Auto) 0.1 10/22/21 07:40: Sodium 126 L, Potassium 5.0 D, Chloride 97 L, Carbon Dioxide 21 L, Anion Gap 13.0, BUN 18 H, Creatinine 0.70, Estimated Creat Clear 68, Estimated GFR 82, Est GFR ( Amer) 99, Glucose 135 H, Calcium 9.1, Magnesium 1.5 L D I & O for Last 24 hours: Intake & Output 10/20/21 10/21/21 10/22/21 10/23/21 11:59 11:59 11:59 11:59 Intake Total 480 / 480 751 / 751 240 / 240 Balance 480 / 480 751 / 751 240 / 240 Weight 190 lb 4.143 oz - Constitutional no acute distress - *Routine HEENT Exam Head: Present: normocephalic Eye: Present: EOMI, PERRL ENT: Present: mucous membranes moist - *Routine Neck Exam Present: supple. Absent: JVD, lymphadenopathy - *Routine Respiratory Exam Present: CTA bilaterally - *Routine Cardiovascular Exam Present: RRR, irregular rhythm - *Routine Abdominal Exam Present: soft, normoactive bowel sounds. Absent: tenderness - *Routine Extremities Exam Present: edema (minimal). Absent: cyanosis, clubbing - *Routine Skin Exam Present: warm. Absent: rash - *Routine Neurological Exam Present: alert, oriented X3 Assessment and Plan (1) Atrial fibrillation with rapid ventricular response Status: Acute Category: Medical Code(s): I48.91 - Unspecified atrial fibrillation (2) Elevated brain natriuretic peptide (BNP) level Status: Acute Category: Medical Code(s): R79.89 - Other specified abnormal findings of blood chemistry (3) Hypertensive cardiovascular disease Status: Chronic Qualifiers: Heart failure presence: unspecified whether heart failure present Qualified Code(s): I11.9 - Hypertensive heart disease without heart failure Category: Medical Code(s): I11.9 - Hypertensive heart disease without heart failure (4) Hypothyroidism (acquired) Status: Chronic Category: Medical Code(s): E03.9 - Hypothyroidism, unspecified (5) Mixed hyperlipidemia Status: Chronic Category: Medical Code(s): E78.2 - Mixed hyperlipidemia (6) Tremor Status: Chronic Category: Medical Code(s): R25.1 - Tremor, unspecified (7) Type 2 diabetes mellitus Status: Chronic Qualifiers: Diabetes mellitus residential insulin use: without lobsterman use Diabetes mellitus complication status: with other specified complication Qualified Code(s): E11.69 - Type 2 diabetes mellitus with other specified complication Category: Medical Code(s): E11.9 - Type 2 diabetes mellitus without complications (8) Hyponatremia Status: Acute Category: Medical Code(s): E87.1 - Hypo-osmolality and hyponatremia (9) Hypomagnesemia Status: Acute Category: Medical Code(s): E83.42 - Hypomagnesemia - Assessment and plan all Dx Assessment and Plan for all problems:: Metoprolol should help HR.
--- NOTE | 2021-10-22 15:50 | PC.NURSE ---
PT IS SITTING UP IN THE CHAIR. ALERT AND ORIENTED X4. PT CONTINUES ON THE CARDIZEM DRIP AT 10 MG/HR. PCP REORDERED PT'S METOPROLOL. AFIB ON TELEMETRY WITH HR 90-120. LUNG SOUNDS CLEAR. ABDOMEN SOFT/NON TENDER WITH ACTIVE BOWEL SOUNDS. AMBULATES TO THE BATHROOM WITH 1 ASSIST. WILL CONTINUE TO MONITOR.
[2021-10-22 21:32] LABS: POC Glucose,Bedside 170 (70-110)
[2021-10-22 21:32] LABS: POC Glucose,Bedside 143 (70-110)
[2021-10-22 21:32] LABS: POC Glucose,Bedside 122 (70-110)
[2021-10-22 21:32] LABS: POC Glucose,Bedside 162 (70-110)
[2021-10-22 21:32] LABS: POC Glucose,Bedside 119 (70-110)
[2021-10-22 21:32] LABS: POC Glucose,Bedside 151 (70-110)
[2021-10-22 21:32] LABS: POC Glucose,Bedside 118 (70-110)
[2021-10-23] VITALS (8 sets, daily range): BP systolic 119–146; BP diastolic 70–91; PULSE 90–112; RESP 16–20; TEMP 36.5–37; O2SAT 95–99; BMI 33.0
--- NOTE | 2021-10-23 05:31 | PC.NURSE ---
has rested intermittently this shift, HR 88-108 this shift, systolic BP 123-144, cardizem gtt turned off at approximately 0200, has remained at a controlled rate while resting, does increase with activity to 100-110, no complaints of SOA or chest pain, telemetry has shown a fib with a rate of 80-100, has remained on room air with O2 sats 95-99%
[2021-10-23 06:39] LABS: POC Glucose,Bedside 141 (70-110)
[2021-10-23 08:30] LABS: Chloride 90 mmol/L (98-107); Potassium 4.3 mmoL/L (3.5-5.1); Sodium 124 mmol/L (136-145)
[2021-10-23 08:33] LABS: Anion Gap 14.3 mEq/L (5-15); Blood Urea Nitrogen 21 mg/dl (7-17); Carbon Dioxide 24 mmol/L (22.0-30.0); Creatinine Clearance Estimated 70 mL/min (50-200); Estimated Glomerular Filt Rate 82 ml/min (>60); GFR (African American) 99 ML/MIN (>60)
[2021-10-23 08:34] LABS: Calcium 8.6 mg/dl (8.4-10.2); Glucose 157 mg/dl (74-100)
--- NOTE | 2021-10-23 08:44 | HMH.ACPN2 ---
Internal Medicine - PN: Subj *Date: 10/23/21 *Time: 08:44 Interval history: Patient states she is feeling better. She denies chest pain and shortness of breath. She is eating without difficulty. Cardizem drip was turned off at approximately 2 AM. She has remained in a controlled ventricular rate in atrial fib.O2 sats have been satisfactory. Exam Vital signs and Labs for Last 24 Hours: Temp Pulse Resp BP Pulse Ox 98.1 F 100 H 18 146/89 H 99 10/23/21 04:00 10/23/21 08:00 10/23/21 06:00 10/23/21 06:00 10/23/21 06:00 Laboratory Results - last 24 hr 10/21/21 11:31: POC Glucose 162 H 10/21/21 16:33: POC Glucose 122 H 10/21/21 20:43: POC Glucose 143 H 10/22/21 05:07: POC Glucose 119 H 10/22/21 11:22: POC Glucose 118 H 10/22/21 17:00: POC Glucose 170 H 10/22/21 21:23: POC Glucose 151 H 10/23/21 06:29: POC Glucose 141 H 10/23/21 07:45: Sodium 124 L, Potassium 4.3, Chloride 90 L, Carbon Dioxide 24, Anion Gap 14.3, BUN 21 H, Creatinine 0.70, Estimated Creat Clear 70, Estimated GFR 82, Est GFR ( Amer) 99, Glucose 157 H, Calcium 8.6 I & O for Last 24 hours: Intake & Output 10/20/21 10/21/21 10/22/21 10/23/21 11:59 11:59 11:59 11:59 Intake Total 480 / 480 751 / 751 720 / 720 Balance 480 / 480 751 / 751 720 / 720 Weight 190 lb 4.143 oz 193 lb 14.4 oz - Constitutional no acute distress Comments: Conversant - *Routine Respiratory Exam Present: CTA bilaterally (Anteriorly and posteriorly) - *Routine Cardiovascular Exam Present: irregular rhythm (Monitor showing atrial fib) - *Routine Abdominal Exam Present: soft, normoactive bowel sounds. Absent: tenderness - *Routine Extremities Exam Absent: edema - *Routine Neurological Exam Present: alert, oriented X3 Assessment and Plan (1) Atrial fibrillation with rapid ventricular response Status: Acute Category: Medical Code(s): I48.91 - Unspecified atrial fibrillation (2) Elevated brain natriuretic peptide (BNP) level Status: Acute Category: Medical Code(s): R79.89 - Other specified abnormal findings of blood chemistry (3) Hypertensive cardiovascular disease Status: Chronic Qualifiers: Heart failure presence: unspecified whether heart failure present Qualified Code(s): I11.9 - Hypertensive heart disease without heart failure Category: Medical Code(s): I11.9 - Hypertensive heart disease without heart failure (4) Hypothyroidism (acquired) Status: Chronic Category: Medical Code(s): E03.9 - Hypothyroidism, unspecified (5) Mixed hyperlipidemia Status: Chronic Category: Medical Code(s): E78.2 - Mixed hyperlipidemia (6) Tremor Status: Chronic Category: Medical Code(s): R25.1 - Tremor, unspecified (7) Type 2 diabetes mellitus Status: Chronic Qualifiers: Diabetes mellitus retirement insulin use: without retirement use Diabetes mellitus complication status: with other specified complication Qualified Code(s): E11.69 - Type 2 diabetes mellitus with other specified complication Category: Medical Code(s): E11.9 - Type 2 diabetes mellitus without complications (8) Hyponatremia Status: Acute Category: Medical Code(s): E87.1 - Hypo-osmolality and hyponatremia (9) Hypomagnesemia Status: Acute Category: Medical Code(s): E83.42 - Hypomagnesemia - Assessment and plan all Dx Assessment and Plan for all problems:: Continue current care and as per Dr. Neville
--- NOTE | 2021-10-23 09:58 | HMH.PTEV ---
Physical Therapy Evaluation Rehab PT IP Evaluation Start: 10/23/21 09:23 Freq: ONCE Status: Active Protocol: Document 10/23/21 09:56 TOSHA (Rec: 10/23/21 09:58 [email or web address] [id number]) Subjective/History History History 75 yowf adm to [facility] with a-fib. She reports she is independent with all mobility at baseline and is feeling much better now. She lives with spouse, 1 step to enter the home. Subjective Subjective Pt with no c/o this am. Rehab PT IP Eval Objective Appearance Patient Behavior Appropriate Patient Orientation Person,Place,Time Difficulty following instructions none Speech Pattern Clear Ambulation Patient Able to Ambulate Yes Ambulation Observation IP General Gait Pattern Observation No Deviations/Normal Ambulation Distance (feet) 40 Ambulation Assistive Device None Ambulation Ability Independent Balance Ability to Arise Able, uses arms to help Sitting Balance Steady, safe Standing Balance Steady, wide stance Dynamic Sitting Balance Ability Normal Dynamic Standing Balance Ability Good Transfers Bed Transfer Ability Independent Chair Transfer Ability Independent Sit to Stand Bed Transfer Ability Independent Sit to Stand Chair Transfer Ability Independent Rehab PT IP prob,goals,plan Problems Date of Evaluation: 10/23/21 Discharge Plan PT Discharge Plan Pt is appropriate to return home once medically stable. No current inpatient therapy needs. G -code Required No Eval Complexity Eval Charge Codes 57163 - Moderate Complexity PHYSICIAN CERTIFICATION: I certify the specified therapy services for Tai Winkler are required, authorized, and reviewed every 30 days.
--- NOTE | 2021-10-23 10:16 | CA_ITS ---
APPROVED REPORT EXAM: Comprehensive 2D, Doppler, and color-flow Echocardiogram Immigration Associate: Jennifer Chin CRT Ht: 5 ft 4 in Wt: 193lbs BSA: 1.93 BP: 146/89 mmHg Indications: Atrial Fibrillation, Diabetes, Palpitations, Hyperlipidemia, Hypertension/HDD 2D Dimensions LVOT 1.66 cm (M/F) 1.5-2.5 LA Volume 35.40 mL LA Volume Index 18.30 mL/m2 (M/F) 16-34 M-Mode Dimensions RVDd 2.97 cm (0.9-2.6) LA Diam 3.26 cm (1.9-4.0) LVDd 3.44 cm (3.5-5.7) Ao Diam 2.83 cm (2.0-3.7) LVDs 2.35 cm (3.5-5.7) IVSd 1.60 cm (0.6-1.1) PWd 0.82 cm (0.6-1.1) EF (Teich) 60.90% FS 31.70% EDV (Teich) 48.80 mL ESV (Teich) 19.10 mL Aortic Valve AO Peak GR. 5.80 mmHg Pulmonary Valve PV Peak Velocity 170.00 (50-150 cm/s) Tricuspid Valve TR P. Velocity 201.00 cm/s RAP Estimate 10.00 mmHg RVSP 26.20 mmHg Left Ventricle Left atrium is moderately enlarged, left ventricle is normal size, mild concentric left ventricular hypertrophy, visually estimated ejection fraction 55% with no regional wall motion abnormality, diastolic parameters are inconclusive. Right Ventricle Right atrium and right ventricle moderately enlarged with normal contractility. Aortic Valve Aortic valve is minimally thickened and fibrosed, there is no aortic stenosis or aortic insufficiency. Mitral Valve Mitral valve leaflets are minimally thickened, there is mild mitral regurgitation Tricuspid Valve Tricuspid valve grossly normal, there is mild tricuspid regurgitation, tricuspid regurgitation jet velocity is inadequate for calculation of the right ventricular systolic pressure. Pulmonic Valve Pulmonic valve is poorly visualized. Great Vessels Aortic root is normal size. Inferior vena cava is poorly visualized. Pericardium No significant pericardial effusion noted. Conclusion 1. Biatrial enlargement, normal left ventricular size, mild concentric left ventricular hypertrophy, visually estimated ejection fraction 55% with no regional wall motion abnormality, diastolic parameters are inconclusive. 2. Moderately enlarged right ventricle with normal contractility. 3. Mild mitral and tricuspid regurgitation. 4. No significant pericardial effusion. 5. Inferior vena cava is poorly visualized. Electronically signed by : Maikel Winston MD 10/24/2021 18:47:17
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
[2021-10-23 11:15] LABS: POC Glucose,Bedside 170 (70-110)
[2021-10-23 16:31] LABS: POC Glucose,Bedside 147 (70-110)
[2021-10-23 20:28] LABS: POC Glucose,Bedside 202 (70-110)
--- NOTE | 2021-10-23 21:43 | PC.NURSE ---
notified MD Neville of pt's refusal of sliding scale insulin for fsbs 202 and that home med glipizide 5mg BID not ordered, no new orders at this time, will continue to monitor
[2021-10-24] VITALS: BP 151/81; PULSE 84; PULSE 91; RESP 20; TEMP 36.5; O2SAT 97
[2021-10-24 04:00] VITALS: BP 147/77; PULSE 97; PULSE 98; RESP 20; TEMP 36.7; O2SAT 92
[2021-10-24 05:00] VITALS: BMI 33.4
--- NOTE | 2021-10-24 07:51 | HMH.PNCARD ---
Subjective Date: 10/24/21 Time: 07:52 Principal diagnosis: A. fib with RVR Interval history: 75-year-old white female in bed in no acute distress. Patient tolerated the increase in diltiazem yesterday without complaints. Blood pressure today is still above goal and heart rate is still around 100 bpm. Review of telemetry shows no significant bradycardia arrhythmias or pauses. Exam Vital signs and Labs for Last 24 Hours: Temp Pulse Resp BP Pulse Ox 98.0 F 98 H 20 147/77 H 92 L 10/24/21 04:00 10/24/21 04:00 10/24/21 04:00 10/24/21 04:00 10/24/21 04:00 Laboratory Results - last 24 hr 10/23/21 07:45: Sodium 124 L, Potassium 4.3, Chloride 90 L, Carbon Dioxide 24, Anion Gap 14.3, BUN 21 H, Creatinine 0.70, Estimated Creat Clear 70, Estimated GFR 82, Est GFR ( Amer) 99, Glucose 157 H, Calcium 8.6 10/23/21 11:03: POC Glucose 170 H 10/23/21 16:24: POC Glucose 147 H 10/23/21 20:19: POC Glucose 202 H I & O for Last 24 hours: Intake & Output 10/21/21 10/22/21 10/23/21 10/24/21 11:59 11:59 11:59 11:59 Intake Total 480 / 480 751 / 751 960 / 960 480 / 480 Balance 480 / 480 751 / 751 960 / 960 480 / 480 Weight 190 lb 4.143 oz 193 lb 14.4 oz 195 lb 14.4 oz - *Routine Respiratory Exam Present: CTA bilaterally - *Routine Cardiovascular Exam Present: tachycardia - *Routine Extremities Exam Absent: cyanosis, clubbing, edema Progress Note: A&P (1) Atrial fibrillation with rapid ventricular response Status: Acute (2) Elevated brain natriuretic peptide (BNP) level Status: Acute (3) Hypertensive cardiovascular disease Status: Chronic (4) Hypothyroidism (acquired) Status: Chronic (5) Mixed hyperlipidemia Status: Chronic (6) Tremor Status: Chronic (7) Type 2 diabetes mellitus Status: Chronic (8) Hyponatremia Status: Acute (9) Hypomagnesemia Status: Acute Assessment and Plan for All Diagnoses:: 1. Increase diltiazem to 240 mg twice daily. Patient continues on Xarelto for anticoagulation of atrial fibrillation 2. Continue to monitor on telemetry for pauses or bradycardia arrhythmias.
[2021-10-24 08:00] VITALS: BP 133/86; PULSE 100; PULSE 101; RESP 18; TEMP 36.9; O2SAT 98
[2021-10-24 08:24] LABS: Chloride 88 mmol/L (98-107); Sodium 125 mmol/L (136-145)
[2021-10-24 08:25] LABS: Potassium 4.4 mmoL/L (3.5-5.1)
[2021-10-24 08:27] LABS: Blood Urea Nitrogen 21 mg/dl (7-17); Creatinine Clearance Estimated 70 mL/min (50-200); Estimated Glomerular Filt Rate 82 ml/min (>60); GFR (African American) 99 ML/MIN (>60)
[2021-10-24 08:28] LABS: Anion Gap 12.4 mEq/L (5-15); Calcium 8.6 mg/dl (8.4-10.2); Carbon Dioxide 29 mmol/L (22.0-30.0); Glucose 181 mg/dl (74-100); Magnesium 1.7 mg/dl (1.6-2.3)
--- NOTE | 2021-10-24 08:28 | HMH.ACPN2 ---
Internal Medicine - PN: Subj *Date: 10/24/21 *Time: 08:28 Interval history: Patient states she is doing fine. She is tired of being here. She has periodic back pain. She has been ambulating in the room. She set up and her breakfast this morning and did well. She is eating without problems. She denies shortness of breath and chest pain. She does not feel palpitations. Cardizem was increased yesterday without any noted bradycardia or pauses. Sodium this morning is 125 with a potassium of 4.4. Echocardiogram results are pending. Exam Vital signs and Labs for Last 24 Hours: Temp Pulse Resp BP Pulse Ox 98.0 F 98 H 20 147/77 H 92 L 10/24/21 04:00 10/24/21 04:00 10/24/21 04:00 10/24/21 04:00 10/24/21 04:00 Laboratory Results - last 24 hr 10/23/21 07:45: Sodium 124 L, Potassium 4.3, Chloride 90 L, Carbon Dioxide 24, Anion Gap 14.3, BUN 21 H, Creatinine 0.70, Estimated Creat Clear 70, Estimated GFR 82, Est GFR ( Amer) 99, Glucose 157 H, Calcium 8.6 10/23/21 11:03: POC Glucose 170 H 10/23/21 16:24: POC Glucose 147 H 10/23/21 20:19: POC Glucose 202 H 10/24/21 07:46: Sodium 125 L, Potassium 4.4, Chloride 88 L I & O for Last 24 hours: Intake & Output 10/21/21 10/22/21 10/23/21 10/24/21 11:59 11:59 11:59 11:59 Intake Total 480 / 480 751 / 751 960 / 960 480 / 480 Balance 480 / 480 751 / 751 960 / 960 480 / 480 Weight 190 lb 4.143 oz 193 lb 14.4 oz 195 lb 14.4 oz - Constitutional no acute distress - *Routine Respiratory Exam Present: crackles (Bilateral basilar crackles greater on the left to mid lung field) - *Routine Cardiovascular Exam Present: irregular rhythm - *Routine Abdominal Exam Present: soft, normoactive bowel sounds, obese. Absent: tenderness - *Routine Extremities Exam Absent: edema, calf tenderness - *Routine Neurological Exam Present: alert, oriented X3 Very conversant Assessment and Plan (1) Atrial fibrillation with rapid ventricular response Status: Acute Category: Medical Code(s): I48.91 - Unspecified atrial fibrillation (2) Elevated brain natriuretic peptide (BNP) level Status: Acute Category: Medical Code(s): R79.89 - Other specified abnormal findings of blood chemistry (3) Hypertensive cardiovascular disease Status: Chronic Qualifiers: Heart failure presence: unspecified whether heart failure present Qualified Code(s): I11.9 - Hypertensive heart disease without heart failure Category: Medical Code(s): I11.9 - Hypertensive heart disease without heart failure (4) Hypothyroidism (acquired) Status: Chronic Category: Medical Code(s): E03.9 - Hypothyroidism, unspecified (5) Mixed hyperlipidemia Status: Chronic Category: Medical Code(s): E78.2 - Mixed hyperlipidemia (6) Tremor Status: Chronic Category: Medical Code(s): R25.1 - Tremor, unspecified (7) Type 2 diabetes mellitus Status: Chronic Qualifiers: Diabetes mellitus shelter insulin use: without predatory animal exterminator use Diabetes mellitus complication status: with other specified complication Qualified Code(s): E11.69 - Type 2 diabetes mellitus with other specified complication Category: Medical Code(s): E11.9 - Type 2 diabetes mellitus without complications (8) Hyponatremia Status: Acute Category: Medical Code(s): E87.1 - Hypo-osmolality and hyponatremia (9) Hypomagnesemia Status: Acute Category: Medical Code(s): E83.42 - Hypomagnesemia - Assessment and plan all Dx Assessment and Plan for all problems:: As per cardiology Cardizem will be increased today. We will continue to monitor rhythm.
[2021-10-24 10:47] LABS: POC Glucose,Bedside 132 (70-110)
--- NOTE | 2021-10-24 12:03 | PC.NURSE ---
DC teaching is complete, pt wants to stay and eat lunch before going home
--- NOTE | 2021-10-29 22:46 | HMH.DCSUM ---
General - General Admission date:: 10/21/21 Discharge date: 10/24/21 HPI HPI: Ms. Winkler is a 75-year-old female with a history of type 2 diabetes, paroxysmal atrial fib, hypothyroidism, and hypertension. She states she has been on diltiazem 240 mg since May 2021 and it was working well to control her heart rate in the 60 to 70 bpm range. She states Saturday she began feeling more fatigued and then noticed that her heart rate was increasing, as was her blood pressure. She states her rate was in the 140s at times at home, but she was unable to get to the hospital due to the weather. Her heart rate increased with any activity and she could feel her heart rate beating in her ears. She states she had a headache and pain through her face and she became very dizzy. She was transported to the emergency room and was found to be in atrial fib. She was placed on a Cardizem drip and admitted. Her gas plumber is Dr. Mercado, but she has also been seeing Dr. Akhtar's group since May. Hospital Course Hospital Course: Patient's chest x-ray showed mild cardiomegaly. Her white blood cell count was slightly elevated and potassium was low at 124. Her C-reactive protein and BNP were both elevated as was her TSH. She was started on a Cardizem drip and IV fluids. Her diltiazem was resumed but divided into twice daily dosing in order to titrate if needed. Her thyroid dose was also increased. Her potassium was dose was increased to improve her sodium retention. She was restarted on her metoprolol 100 mg twice daily. Her heart rate continued in the range of 90-120. Her Cardizem drip was able to be discontinued and she remained at a controlled ventricular rate in atrial fib. Her oxygen saturations were satisfactory. She had an echo which showed an EF of 55%. Cardiology was consulted and they increased her diltiazem to 120 mg 3 times daily and wanted to keep her for another 24 hours to monitor. She was also given a one-time dose of magnesium IV as her magnesium level was low. Her heart rate improved and remained around 100 bpm on the increased dose of diltiazem. She had no significant bradycardia, arrhythmias, or pauses. Her Cardizem was increased to 240 mg twice daily and she was continued on Xarelto for anticoagulation. Cardiology felt she could discharge home with a 24-hour Holter monitor. She was stable to be discharged and will follow up with Dr. Neville and cardiology. Objective Vital signs: Temp Pulse Resp BP Pulse Ox 98.4 F 100 H 18 133/86 98 10/24/21 08:00 10/24/21 08:00 10/24/21 08:00 10/24/21 08:00 10/24/21 08:00 Narrative: - Constitutional no acute distress - *Routine HEENT Exam Head: Present: normocephalic Eye: Present: EOMI, PERRL ENT: Present: mucous membranes moist - *Routine Neck Exam Present: supple. Absent: lymphadenopathy - *Routine Respiratory Exam Present: CTA bilaterally - *Routine Cardiovascular Exam Present: irregularly irregular (HR 112 on monitor) - *Routine Abdominal Exam Present: soft, normoactive bowel sounds. Absent: tenderness - *Routine Rectal Exam Rectal:: deferred - *Routine Genitalia Exam Genitalia:: deferred - *Routine Extremities Exam Absent: cyanosis, clubbing, edema - *Routine Skin Exam Present: warm. Absent: rash - *Routine Neurological Exam Present: alert, oriented X3 DS: Diagnosis - Discharge Diagnosis (1) Atrial fibrillation with rapid ventricular response Status: Acute (2) Elevated brain natriuretic peptide (BNP) level Status: Acute (3) Hypertensive cardiovascular disease Status: Chronic (4) Hypothyroidism (acquired) Status: Chronic (5) Mixed hyperlipidemia Status: Chronic (6) Tremor Status: Chronic (7) Type 2 diabetes mellitus Status: Chronic (8) Hyponatremia Status: Acute (9) Hypomagnesemia Status: Acute Discharge Plan - Patient Discharge Instructions ACTIVITY: Con
== END 2021-10-24 13:08 | disposition home or self-care (01) | DRG 309 ==
LOC: ER 05:59 → 2ND 07:00
PROVIDERS: Physician Assistant; Admitting Provider Family Medicine; Emergency Provider Emergency Medicine; PCP Family Medicine; Visit Provider Family Medicine
DX: I48.91 Unspecified atrial fibrillation (principal); E87.1 Hypo-osmolality and hyponatremia; E11.9 Type 2 diabetes mellitus without complications; I10 Essential (primary) hypertension; E03.9 Hypothyroidism, unspecified; Z20.822 Contact with and (suspected) exposure to COVID-19; E78.2 Mixed hyperlipidemia; E83.42 Hypomagnesemia
CPT/HCPCS: 36415; 71045; 80048; 80053; 81001; 82962; 83735; 83880; 84145; 84436; 84443; 84484; 85007; 85025; 85651; 86140; 93005; 93225; 93226; 93306; 96365; 96367; 96375; 97162; 99284; C9803; U0003; U0005

== ENCOUNTER → 2021-10-31 10:59 | Outpatient (CLI) | payer MEDICARE, SELFPAY ==
[2021-10-31 11:15] LABS: Coronavirus 19, PCR Not Detected (NotDetected); Influenza A, PCR Not Detected (NotDetected); Influenza B, PCR Not Detected (NotDetected)
== END ==
PROVIDERS: PCP Family Medicine; Visit Provider Physician Assistant
DX: I48.91 Unspecified atrial fibrillation (principal); Z01.812 Encounter for preprocedural laboratory examination; Z11.52 Encounter for screening for COVID-19
CPT/HCPCS: C9803; U0003; U0005

== ENCOUNTER 2021-11-01 06:59 | Day surgery (SDC) | payer MEDICARE, SELFPAY ==
[2021-11-01 07:10] VITALS: BMI 34.1
[2021-11-01 07:46] VITALS: BP 145/90; PULSE 91; RESP 16; TEMP 36.9; O2SAT 99
[2021-11-01 07:51] VITALS: PULSE 92
[2021-11-01 07:57] VITALS: BP 112/62; PULSE 69; RESP 16; O2SAT 100
--- NOTE | 2021-11-01 08:08 | P.PN_ITS ---
[facility] Anesthesia Checklist - Patient Identification Patient Identification: Arm Band - Structural Data Admitted From: Home Planned Operative Procedure/s: Cardioversion Consent for Planned Operative Procedure(s) Verified: Yes Verified Documents: Surgical Consent, History and Physical - NPO Status Verified Time NPO: 00:00 - Additional verifications Anesthesia Reactions: No - Airway Assessment C-Spine Mobility Assessed: Yes (mp2) TMJ Mobility Assessed: Yes Dentition: Good Dentition - Neurological Assessment Level of Consciousness: Awake, Alert - Anesthesia Plan Anesthesia Risk discussed: Yes Anesthesia Plan: Verified ASA Class: III Anesthesia Type: MAC [facility] History I have reviewed the patient's past medical history: Yes Medical History: Reports:: Atrial Fibrillation, Diabetes Mellitus Type 2, Hyperlipidemia, Hypertension, Palpitations Denies:: Diabetes Mellitus Type 1, MRSA, Seizures, Valvular Heart Disease *Have you ever received a pneumonia vaccine?: Yes *Have you received a flu vaccine this season?: Yes Other Medical History: Reports: Hypothyroidism Anesthesia experience/problems:: nac Other Surgeries: Yes: Appendectomy (Incidental February 1975), Cardiac Catheterization (September 2014 Dr. Lui Mercado [facility] [place]), Cholecystectomy (February 1975), Tubal Ligation (In the ) Amputation: No Fractures: No - *Social History Last grade of school completed: Advanced degree Smoking Status: Current some day smoker Alcohol Intake: never Substance Use Type: denies use *Occupational Status:: retired Housing: house Household Members: spouse *Travel in the last 8 weeks: None Family Hx:: Cancer (Father prostate, mother breast), Diabetes (Mother and brother), Alcoholism (Brother), Other (Sister of COVID-19)
--- NOTE | 2021-11-01 08:12 | HMH.CARDIO ---
[facility] Cardioversion Date: 11/01/21 Provider:: KAMILAH August Procedure Performed:: Synchronized electrical cardioversion Diagnosis:: Recurrent atrial fibrillation Procedure Summary:: Patient was brought to the cardiac Health Coach as an outpatient. After informed consent was obtained, anesthesia provided sedation and patient received 3 separate 200 J shocks to convert her to normal sinus rhythm. After the first 2 shocks patient briefly had sinus rhythm but converted back to atrial fibrillation. After the third shock it appeared patient maintained sinus rhythm with occasional PACs. Patient tolerated the procedure without complications. Complications:: None Conculsion:: Successful electrical cardioversion to normal sinus rhythm.
[2021-11-01 08:15] VITALS: BP 123/81; PULSE 91; RESP 18; O2SAT 100
[2021-11-01 08:44] VITALS: BP 130/91; PULSE 111; RESP 18; O2SAT 98
== END 2021-11-01 08:49 | disposition home or self-care (01) ==
LOC: CATHLAB 07:00
PROVIDERS: Internal Medicine Cardiovascular Disease; PCP Family Medicine; Visit Provider Internal Medicine
DX: I48.0 Paroxysmal atrial fibrillation (principal); I11.9 Hypertensive heart disease without heart failure; E11.9 Type 2 diabetes mellitus without complications
CPT/HCPCS: 92960

== ENCOUNTER 2021-11-08 12:42 | Inpatient (IN) | payer MEDICARE, SELFPAY ==
[2021-11-08] VITALS (15 sets, daily range): BP systolic 102–148; BP diastolic 55–91; PULSE 92–118; RESP 16–22; TEMP 36.8; O2SAT 95–100; BMI 28.6
--- NOTE | 2021-11-08 13:06 | HMH.PNCARD ---
Subjective Date: 11/08/21 Time: 13:06 Principal diagnosis: A. fib with RVR Interval history: Past medical History: 1. Type 2 diabetes mellitus 2. Hypertension A. Echo, 05/2021, 1. Biatrial enlargement, normal left ventricular size, visually estimated ejection fraction 55% with no regional wall motion abnormality, diastolic parameters are inconclusive. 2. Moderately enlarged right ventricle with normal contractility. 3. Trace mitral and moderate tricuspid regurgitation, calculated right ventricular systolic pressure is 54 mmHg. 4. No significant pericardial effusion noted. 5. Inferior vena cava is normal size with normal inspiratory collapse. Electronically signed by : Maikel Winston MD 06/09/2021 13:52:20 3. Hyperlipidemia 4. History of paroxysmal atrial fibrillation, previously controlled on a combination of diltiazem and beta-marry therapy with Xarelto for anticoagulation. A. Diltiazem stopped due to LE edema B. Amiodarone started 11/01/2021 after failed cardioversion attempts 5. Patient reports history of normal cardiac catheterization, 2014, Dr. Lui Mercado, [place], [place]. 6. Hypothyroidism, on replacement therapy 7. Upper extremity tremor, question Parkinson's versus benign essential tremor as the patient has a family history of the same. 75-year-old white female seen in the office today for follow-up for atrial fibrillation. Ms. Winkler had recently been hospitalized for atrial fibrillation with RVR at which time increasing her diltiazem did help control the rate but due to side effects of lower extremity edema, this was discontinued at the time of her cardioversion last week. Patient underwent cardioversion last week x3 to attempt conversion to sinus rhythm. Each attempt only brought sinus rhythm for a few seconds or minutes longer than the previous. Ultimately she only held sinus rhythm for about 5 minutes before converting back to atrial fibrillation. She was started on amiodarone 400 mg twice daily at that time and metoprolol was increased to metoprolol tartrate 100 mg twice daily in an attempt to chemically cardiovert her. She was continued on Xarelto 20 mg daily In the office today for follow-up patient is visibly fatigued and in a wheelchair. She states she cannot do activities around the house without being so tired she needs to stop. Discussion was had with Dr. Akhtar who recommended admission with IV amiodarone loading while continuing oral amiodarone and attempting cardioversion tomorrow. If cardioversion is unsuccessful tomorrow then patient will be referred to electrophysiology (someone at [place] or [facility] at the patient's request) for further evaluation and treatment. Exam Vital signs and Labs for Last 24 Hours: Temp Pulse Resp BP Pulse Ox 98.3 F 117 H 16 129/89 99 11/08/21 13:02 11/08/21 13:02 11/08/21 13:02 11/08/21 13:02 11/08/21 13:02 I & O for Last 24 hours: Intake & Output 11/06/21 11/07/21 11/08/21 11/09/21 11:59 11:59 11:59 11:59 Weight 167 lb - Constitutional no acute distress - *Routine Respiratory Exam Present: CTA bilaterally - *Routine Cardiovascular Exam Present: tachycardia, irregularly irregular - *Routine Extremities Exam Present: edema. Absent: cyanosis, clubbing Progress Note: A&P (1) Atrial fibrillation with rapid ventricular response Status: Acute (2) Hypertensive cardiovascular disease Status: Chronic (3) Hypothyroidism (acquired) Status: Chronic (4) Type 2 diabetes mellitus Status: Chronic Assessment and Plan for All Diagnoses:: As noted above, continue metoprolol tartrate 100 mg twice daily, Xarelto 20 mg daily, amiodarone 400 mg twice daily and will give IV loading dose of amiodarone overnight with plans for cardioversion tomorrow. Continue other home medications as well.
--- NOTE | 2021-11-08 13:20 | HMH.PHAINT ---
home medication list completed using [facility] and [facility]
--- NOTE | 2021-11-08 13:44 | HMH.HP ---
*Admission Date: 11/08/21 *Chief complaint: atrial fib and fatigue *History of present illness: Ms. Winkler is a 75-year-old female patient of 'suamn with a history of type 2 diabetes mellitus, hypertension, hyperlipidemia, and atrial fibrillation, who was seen in the cardiology office but Huber Campbell PA-C for follow-up after attempted cardioversion. The following is documentation by him: Past medical History: 1. Type 2 diabetes mellitus 2. Hypertension A. Echo, 05/2021, 1. Biatrial enlargement, normal left ventricular size, visually estimated ejection fraction 55% with no regional wall motion abnormality, diastolic parameters are inconclusive. 2. Moderately enlarged right ventricle with normal contractility. 3. Trace mitral and moderate tricuspid regurgitation, calculated right ventricular systolic pressure is 54 mmHg. 4. No significant pericardial effusion noted. 5. Inferior vena cava is normal size with normal inspiratory collapse. Electronically signed by : Maikel Winston MD 06/09/2021 13:52:20 3. Hyperlipidemia 4. History of paroxysmal atrial fibrillation, previously controlled on a combination of diltiazem and beta-marry therapy with Xarelto for anticoagulation. A. Diltiazem stopped due to LE edema B. Amiodarone started 11/01/2021 after failed cardioversion attempts 5. Patient reports history of normal cardiac catheterization, 2015, Dr. Lui Mercado, [place], [place]. 6. Hypothyroidism, on replacement therapy 7. Upper extremity tremor, question Parkinson's versus benign essential tremor as the patient has a family history of the same. 75-year-old white female seen in the office today for follow-up for atrial fibrillation. Ms. Winkler had recently been hospitalized for atrial fibrillation with RVR at which time increasing her diltiazem did help control the rate but due to side effects of lower extremity edema, this was discontinued at the time of her cardioversion last week. Patient underwent cardioversion last week x3 to attempt conversion to sinus rhythm. Each attempt only brought sinus rhythm for a few seconds or minutes longer than the previous. Ultimately she only held sinus rhythm for about 5 minutes before converting back to atrial fibrillation. She was started on amiodarone 400 mg twice daily at that time and metoprolol was increased to metoprolol tartrate 100 mg twice daily in an attempt to chemically cardiovert her. She was continued on Xarelto 20 mg daily In the office today for follow-up patient is visibly fatigued and in a wheelchair. She states she cannot do activities around the house without being so tired she needs to stop. Discussion was had with Dr. Akhtar who recommended admission with IV amiodarone loading while continuing oral amiodarone and attempting cardioversion tomorrow. If cardioversion is unsuccessful tomorrow then patient will be referred to electrophysiology (someone at [place] or [facility] at the patient's request) for further evaluation and treatment. The above per cardiology As above: Patient has remained in atrial fibrillation and has been unable to resume her normal activity. Today with this assessment she denies chest pain and shortness of breath. She states she just becomes fatigued with increase in activity. She has been able to do some activities of daily living. Her helps her with the rest. She is eating without difficulty although she has had some heartburn. [facility] History Medical History: Reports:: Arrhythmia, Atrial Fibrillation, Diabetes Mellitus Type 2, Gastroesophageal Reflux Disease(GERD), Hyperlipidemia, Hypertension, Palpitations Denies:: Cancer, Diabetes Mellitus Type 1, MRSA, Seizures, Valvular Heart Disease *Have you ever received a pneumonia vaccine?: Yes *Have you received a flu vaccine this season?: Yes Other Medical History: Reports: Arthritis, Hypothyroidism Other Surgeries: Yes: Appendectomy (Incidental February 1975), Cardiac Catheterization (Ja
[2021-11-08 13:47] LABS: Coronavirus 19, PCR Not Detected (NotDetected); Influenza A, PCR Not Detected (NotDetected); Influenza B, PCR Not Detected (NotDetected)
[2021-11-08 14:25] LABS: Basophils # 0.1 K/mm3 (0-0.2); Basophils % 1.4 % (0.1-2.0); Eosinophils % 0.3 % (0.1-12.0); Hematocrit 42.7 % (37.0-47.0); Lymphocytes # 1.5 K/mm3 (0.7-4.5); Lymphocytes % 15.7 % (10-50); Mean Corpuscular HGB Conc 32.7 g/dL (31.8-35.4); Mean Corpuscular Hemoglobin 29.1 pg (27.0-31.2); Mean Platelet Volume 7.9 fl (7.4-10.4); Monocytes # 0.5 K/mm3 (0.1-1.0); Monocytes % 4.8 % (1.7-9.3); Neutrophils # 7.6 K/mm3 (1.8-7.8); Neutrophils % 77.8 % (37.0-80.0); Platelet Count 321 K/mm3 (142-424); Red Cell Distribution Width 15.8 % (11.5-17.5); White Blood Count 9.8 K/mm3 (4.8-10.8)
[2021-11-08 14:27] LABS: Anion Gap 12.1 mEq/L (5-15); Blood Urea Nitrogen 24 mg/dl (7-17); Calcium 9.3 mg/dl (8.4-10.2); Carbon Dioxide 36 mmol/L (22.0-30.0); Chloride 87 mmol/L (98-107); Creatinine Clearance Estimated 60 mL/min (50-200); Estimated Glomerular Filt Rate 61 ml/min (>60); GFR (African American) 74 ML/MIN (>60); Glucose 55 mg/dl (74-100); Potassium 4.1 mmoL/L (3.5-5.1); Sodium 131 mmol/L (136-145)
--- NOTE | 2021-11-08 14:57 | CT_ITS ---
FINAL REPORT TECHNIQUE: Axial images were obtained through the chest without contrast. CLINICAL HISTORY: SOA, right heart enlargement, A. fib FINDINGS: 1.25 mm axial slices were performed through the chest at 10 mm intervals utilizing high-resolution protocol. Coronal reformatted images were submitted. This study was performed with techniques to keep radiation doses as low as reasonably achievable (ALARA). Individualized dose reduction techniques using automated exposure control or adjustment of mA and/or kV according to the patient's size were employed. There is no axillary adenopathy. There is no significant mediastinal mass or adenopathy. There is moderate fluid in the mid and distal esophagus. Heart size is normal. There is no pericardial or pleural effusion. On the lung window images, there is a noncalcified nodule in the posterior right upper lobe measuring 5 mm. There is scarring in the right middle lobe and lingula. On the high-resolution images, there are minimal coarse linear densities at the bilateral lung bases consistent with scarring. Limited images of the upper abdomen are unremarkable. IMPRESSION: 1. Right upper lobe nodule measuring 5 mm is indeterminate. Six-month follow-up chest CT is recommended to ensure stability. 2. Scarring at the bilateral lung bases. Reviewed, Interpreted and Dictated by Conor Gillis MD Transcribed by KAMILAH Newman Authenticated by Conor Gillis MD on 11/09/2021 08:36:16 AM [facility]
--- NOTE | 2021-11-08 15:50 | P.CONPHA_ITS ---
[facility] Pharmacy VTE Monitoring - Patient Demographics Admission date: 11/08/21 Report Date: 11/08/21 Time: 15:50 Allergies/Adverse Reactions: Patient Allergies No Known Allergies Allergy (Verified 11/08/21 11:31) Height: 1.63 m Weight: 75.75 kg Patient Problems: Current Active Problems Hypertensive cardiovascular disease (Chronic) Hypothyroidism (acquired) (Chronic) Type 2 diabetes mellitus (Chronic) Atrial fibrillation with rapid ventricular response (Acute) Hyponatremia (Chronic) - VTE Risk Labs: VTE Related Lab Results Hgb 14.0 g/dL (12.2-16.2) 11/08/21 13:55 Hct 42.7 % (37.0-47.0) 11/08/21 13:55 Plt Count 321 K/mm3 (142-424) 11/08/21 13:55 BUN 24 mg/dl (7-17) H 11/08/21 13:55 Creatinine 0.90 mg/dl (0.52-1.04) 11/08/21 13:55 Estimated Creat Clear 60 mL/min (50-200) 11/08/21 13:55 VTE Score: 2 - Prophylaxis VTE Prophylaxis Ordered?: Yes Types of VTE Prophylaxis: TEDS Knee High, Pharmacological Location of Applied Device: Bilateral Lower Extremeties Pharmacologic Type: Other (XARELTO)
[2021-11-08 20:26] LABS: POC Glucose,Bedside 145 (70-110)
[2021-11-09] VITALS (15 sets, daily range): BP systolic 102–153; BP diastolic 67–95; PULSE 60–118; RESP 17–22; TEMP 36.4–36.7; O2SAT 95–100; BMI 29.8; BMI 29.7
--- NOTE | 2021-11-09 05:22 | PC.NURSE ---
Pt remains on Amiodarone gtt @ 16.7 ml/hr. VSS. She remains afib on telemetry. Consent for procedure is signed and on chart. Pt has denied any complaints this shift. No other concerns. Will continue to monitor.
[2021-11-09 05:40] LABS: POC Glucose,Bedside 107 (70-110)
--- NOTE | 2021-11-09 07:12 | PC.NURSE ---
notified that pt had not urinated this shift. Multiple attempts made for pt to urinate. F/C placed with 500 ml immediately. F/C anchored.
--- NOTE | 2021-11-09 07:48 | HMH.PHAINT ---
Home med rec complete
--- NOTE | 2021-11-09 08:19 | HMH.PNCARD ---
Subjective Date: 11/09/21 Time: 08:19 Principal diagnosis: A. fib with RVR Interval history: 76-year-old white female in bed in no acute distress. No complaints overnight. She continues on amiodarone IV. Telemetry shows continued A. fib but with improved rate. Exam Vital signs and Labs for Last 24 Hours: Temp Pulse Resp BP Pulse Ox 97.6 F 88 20 129/81 100 11/09/21 04:00 11/09/21 08:00 11/09/21 08:00 11/09/21 08:00 11/09/21 08:00 Laboratory Results - last 24 hr 11/08/21 13:45: SARS-CoV-2 (PCR) Not detected, Influenza A Untype (PCR) Not detected, Influenza Type B (PCR) Not detected 11/08/21 13:55: WBC 9.8, RBC 4.80, Hgb 14.0, Hct 42.7, MCV 89.0, MCH 29.1, MCHC 32.7, RDW 15.8, Plt Count 321, MPV 7.9, Neut % (Auto) 77.8, Lymph % (Auto) 15.7, [place] % (Auto) 4.8, Eos % (Auto) 0.3, Baso % (Auto) 1.4, Neut # (Auto) 7.6, Lymph # (Auto) 1.5, [place] # (Auto) 0.5, Eos # (Auto) 0.0, Baso # (Auto) 0.1 11/08/21 13:55: Sodium 131 L, Potassium 4.1, Chloride 87 L, Carbon Dioxide 36 H, Anion Gap 12.1, BUN 24 H, Creatinine 0.90, Estimated Creat Clear 60, Estimated GFR 61, Est GFR ( Amer) 74, Glucose 55 L, Calcium 9.3 11/08/21 20:18: POC Glucose 145 H 11/09/21 05:11: POC Glucose 107 I & O for Last 24 hours: Intake & Output 11/06/21 11/07/21 11/08/21 11/09/21 11:59 11:59 11:59 11:59 Intake Total 240 / 240 Output Total 500 / 500 Balance -260 / -260 Weight 167 lb - Constitutional no acute distress - *Routine Respiratory Exam Present: CTA bilaterally - *Routine Cardiovascular Exam Present: irregularly irregular Progress Note: A&P (1) Atrial fibrillation with rapid ventricular response Status: Acute (2) Hypertensive cardiovascular disease Status: Chronic (3) Hypothyroidism (acquired) Status: Chronic (4) Type 2 diabetes mellitus Status: Chronic (5) Hyponatremia Status: Chronic Assessment and Plan for All Diagnoses:: 1. Continue IV amiodarone 2. Plan for Cardioversion later today 3. BP well controlled, will hold losartan/HCT for now. 4. Thyroid per PCP
--- NOTE | 2021-11-09 09:02 | HMH.ACPN2 ---
Internal Medicine - PN: Subj *Date: 11/09/21 *Time: 09:02 Interval history: Patient states she is feeling well this morning. She denies any pain or shortness of breath. She did have a Hollis placed with good output. Cardiology plans to take her for a cardioversion this morning. Exam Vital signs and Labs for Last 24 Hours: Temp Pulse Resp BP Pulse Ox 97.6 F 88 20 129/81 100 11/09/21 04:00 11/09/21 08:00 11/09/21 08:00 11/09/21 08:00 11/09/21 08:00 Laboratory Results - last 24 hr 11/08/21 13:45: SARS-CoV-2 (PCR) Not detected, Influenza A Untype (PCR) Not detected, Influenza Type B (PCR) Not detected 11/08/21 13:55: WBC 9.8, RBC 4.80, Hgb 14.0, Hct 42.7, MCV 89.0, MCH 29.1, MCHC 32.7, RDW 15.8, Plt Count 321, MPV 7.9, Neut % (Auto) 77.8, Lymph % (Auto) 15.7, [place] % (Auto) 4.8, Eos % (Auto) 0.3, Baso % (Auto) 1.4, Neut # (Auto) 7.6, Lymph # (Auto) 1.5, [place] # (Auto) 0.5, Eos # (Auto) 0.0, Baso # (Auto) 0.1 11/08/21 13:55: Sodium 131 L, Potassium 4.1, Chloride 87 L, Carbon Dioxide 36 H, Anion Gap 12.1, BUN 24 H, Creatinine 0.90, Estimated Creat Clear 60, Estimated GFR 61, Est GFR ( Amer) 74, Glucose 55 L, Calcium 9.3 11/08/21 20:18: POC Glucose 145 H 11/09/21 05:11: POC Glucose 107 I & O for Last 24 hours: Intake & Output 11/06/21 11/07/21 11/08/21 11/09/21 11:59 11:59 11:59 11:59 Intake Total 240 / 240 Output Total 500 / 500 Balance -260 / -260 Weight 174 lb 1 oz - Constitutional no acute distress - *Routine Respiratory Exam Present: CTA bilaterally - *Routine Cardiovascular Exam Present: irregularly irregular - *Routine Abdominal Exam Present: soft, normoactive bowel sounds. Absent: tenderness - *Routine Extremities Exam Present: edema (Trace bilateral lower extremities). Absent: cyanosis, clubbing - *Routine Skin Exam Present: warm. Absent: rash - *Routine Neurological Exam Present: alert, oriented X3 Assessment and Plan (1) Atrial fibrillation with rapid ventricular response Status: Acute Category: Medical Code(s): I48.91 - Unspecified atrial fibrillation (2) Hypertensive cardiovascular disease Status: Chronic Qualifiers: Heart failure presence: unspecified whether heart failure present Qualified Code(s): I11.9 - Hypertensive heart disease without heart failure Category: Medical Code(s): I11.9 - Hypertensive heart disease without heart failure (3) Hypothyroidism (acquired) Status: Chronic Category: Medical Code(s): E03.9 - Hypothyroidism, unspecified (4) Type 2 diabetes mellitus Status: Chronic Qualifiers: Diabetes mellitus senior care insulin use: without terminal operator use Diabetes mellitus complication status: with other specified complication Qualified Code(s): E11.69 - Type 2 diabetes mellitus with other specified complication Category: Medical Code(s): E11.9 - Type 2 diabetes mellitus without complications (5) Hyponatremia Status: Chronic Category: Medical Code(s): E87.1 - Hypo-osmolality and hyponatremia - Assessment and plan all Dx Assessment and Plan for all problems:: Cardioversion planned for this morning. Heart rate has improved.
[2021-11-09 10:21] LABS: Microscopic, Urine URINE MICROSCOPIC (MICROSCOPIC)
[2021-11-09 10:24] LABS: Appearance,Urine CLEAR (Clear); Bilirubin,Urine Negative (Negative); Blood, Urine Negative (Negative); Color,Urine YELLOW (Yellow); Glucose,Urine (UA) Negative (Negative); Ketones,Urine Negative (Negative); Leukocyte Esterase,Urine TRACE (Negative); Nitrate,Urine Negative (Negative); Protein,Urine 2+ (Negative); Specific Gravity, Urine 1.015 (1.005-1.030); Urobilinogen,Urine 0.2 EU/dl (0.2)
[2021-11-09 10:52] LABS: Bacteria,Urine Trace /lpf
[2021-11-09 12:11] LABS: POC Glucose,Bedside 224 (70-110)
--- NOTE | 2021-11-09 14:46 | P.PCN_ITS ---
[facility] Cardioversion Date: 11/09/21 Provider:: KAMILAH August Procedure Performed:: Synchronized electrical cardioversion Diagnosis:: Atrial fibrillation Procedure Summary:: After informed consent was obtained, anesthesia provided sedation and patient received a single 200 J shock converting her from atrial fibrillation to sinus rhythm. Patient tolerated procedure without complications. Complications:: None Conculsion:: Successful electrical cardioversion to sinus rhythm.
--- NOTE | 2021-11-09 14:55 | ECG_ITS ---
APPROVED REPORT Exam: Resting ECG HR:56 bpm ECG Measurements Heart Rate 56 AXES WV 115 P -63 QRSd 117 QRS 86 QT 492 T 85 QTc 483 Conclusion JUNCTIONAL BRADYCARDIA INCOMPLETE RIGHT BUNDLE BRANCH BLOCK [90+ ms QRS DURATION, TERMINAL R IN V1/V2, 40+ ms S IN I/aVL/V4/V5/V6] MINIMAL ST DEPRESSION [0.025+ mV ST DEPRESSION] PROLONGED QT INTERVAL ABNORMAL ECG UNCONFIRMED REPORT Electronically signed by : Eric Maldonado MD 11/10/2021 19:21:30
--- NOTE | 2021-11-09 15:10 | PC.NURSE ---
Amiodarone drip stopped at start of cardioversion per J Hill PA orders.
--- NOTE | 2021-11-09 16:59 | PC.NURSE ---
1620: pt ok to transfer out of stepdown and remain on tele monitor per Josse TRIANA
[2021-11-09 22:18] LABS: POC Glucose,Bedside 117 (70-110)
[2021-11-09 22:18] LABS: POC Glucose,Bedside 84 (70-110)
[2021-11-10] VITALS: BP 141/70; PULSE 60; RESP 18; TEMP 36.6; O2SAT 98
[2021-11-10 04:00] VITALS: BP 141/70; PULSE 60; RESP 18; TEMP 36.6; O2SAT 100
--- NOTE | 2021-11-10 04:02 | PC.NURSE ---
NO ACUTE CHANGES FROM INITIAL ASSESSMENT. PT HAS BEEN CONFUSED THROUGHOUT SHIFT. VITAL SIGNS REMAIN STABLE. PT DENIES CHEST PAIN. WILL CONTINUE TO MONITOR.
--- NOTE | 2021-11-10 06:43 | PC.NURSE ---
All charting and care this shift by Saad student support services director, supervised by this RN.
[2021-11-10 08:00] VITALS: BP 140/68; PULSE 73; RESP 18; TEMP 36.8; O2SAT 99
--- NOTE | 2021-11-10 08:52 | HMH.ACPN2 ---
Internal Medicine - PN: Subj *Date: 11/10/21 *Time: 08:52 Interval history: Patient states she is feeling better this morning. She had cardioversion yesterday and has remained in sinus rhythm. She denies any pain and states she slept and ate all of her breakfast. Exam Vital signs and Labs for Last 24 Hours: Temp Pulse Resp BP Pulse Ox 98.2 F 73 18 140/68 99 11/10/21 08:00 11/10/21 08:00 11/10/21 08:00 11/10/21 08:00 11/10/21 08:00 Laboratory Results - last 24 hr 11/08/21 17:02: POC Glucose 224 H 11/09/21 07:00: Urine Color Yellow, Urine Appearance Clear, Urine pH 6.0, Ur Specific [place] 1.015, Urine Protein 2+, Urine Glucose (UA) Negative, Urine Ketones Negative, Urine Blood Negative, Urine Nitrate Negative, Urine Bilirubin Negative, Urine Urobilinogen 0.2, Ur Leukocyte Esterase Trace, Urine WBC 5-10, Ur Squamous Epith Cells 3-5, Urine Bacteria Trace 11/09/21 12:47: POC Glucose 117 H 11/09/21 17:15: POC Glucose 84 I & O for Last 24 hours: Intake & Output 11/07/21 11/08/21 11/09/21 11/10/21 11:59 11:59 11:59 11:59 Intake Total 240 / 240 595 / 595 Output Total 500 / 500 550 / 550 Balance -260 / -260 45 / 45 Weight 173 lb 15.115 oz - Constitutional no acute distress - *Routine Respiratory Exam Present: CTA bilaterally - *Routine Cardiovascular Exam Present: RRR - *Routine Abdominal Exam Present: soft, normoactive bowel sounds. Absent: tenderness - *Routine Extremities Exam Absent: cyanosis, clubbing, edema - *Routine Skin Exam Present: warm. Absent: rash - *Routine Neurological Exam Present: alert, oriented X3 Assessment and Plan (1) Atrial fibrillation with rapid ventricular response Status: Acute Category: Medical Code(s): I48.91 - Unspecified atrial fibrillation (2) Hypertensive cardiovascular disease Status: Chronic Qualifiers: Heart failure presence: unspecified whether heart failure present Qualified Code(s): I11.9 - Hypertensive heart disease without heart failure Category: Medical Code(s): I11.9 - Hypertensive heart disease without heart failure (3) Hypothyroidism (acquired) Status: Chronic Category: Medical Code(s): E03.9 - Hypothyroidism, unspecified (4) Type 2 diabetes mellitus Status: Chronic Qualifiers: Diabetes mellitus mcc insulin use: without mcc use Diabetes mellitus complication status: with other specified complication Qualified Code(s): E11.69 - Type 2 diabetes mellitus with other specified complication Category: Medical Code(s): E11.9 - Type 2 diabetes mellitus without complications (5) Hyponatremia Status: Chronic Category: Medical Code(s): E87.1 - Hypo-osmolality and hyponatremia - Assessment and plan all Dx Assessment and Plan for all problems:: Patient is currently in normal sinus rhythm. Cardiology to follow.
--- NOTE | 2021-11-10 10:51 | HMH.PNCARD ---
Subjective Date: 11/10/21 Time: 10:51 Principal diagnosis: A. fib with RVR Interval history: 76-year-old white female in bed in no acute distress. No complaints overnight. Telemetry shows continued sinus rhythm. Exam Vital signs and Labs for Last 24 Hours: Temp Pulse Resp BP Pulse Ox 98.2 F 73 18 140/68 99 11/10/21 08:00 11/10/21 08:00 11/10/21 08:00 11/10/21 08:00 11/10/21 08:00 Laboratory Results - last 24 hr 11/08/21 17:02: POC Glucose 224 H 11/09/21 07:00: Urine WBC 5-10, Ur Squamous Epith Cells 3-5, Urine Bacteria Trace 11/09/21 12:47: POC Glucose 117 H 11/09/21 17:15: POC Glucose 84 I & O for Last 24 hours: Intake & Output 11/07/21 11/08/21 11/09/21 11/10/21 11:59 11:59 11:59 11:59 Intake Total 240 / 240 1075 / 1075 Output Total 500 / 500 550 / 550 Balance -260 / -260 525 / 525 Weight 173 lb 15.115 oz - *Routine Respiratory Exam Present: CTA bilaterally - *Routine Cardiovascular Exam Present: RRR Progress Note: A&P (1) Atrial fibrillation with rapid ventricular response Status: Acute (2) Hypertensive cardiovascular disease Status: Chronic (3) Hypothyroidism (acquired) Status: Chronic (4) Type 2 diabetes mellitus Status: Chronic (5) Hyponatremia Status: Chronic Assessment and Plan for All Diagnoses:: Okay for discharge home from cardiology standpoint Home medication recommendations 1. Amiodarone 400 mg twice daily until we see her back in the office next week 2. Metoprolol tartrate 100 mg twice daily 3. Xarelto 20 mg daily 4. Continue to hold losartan/HCT with daily blood pressure monitoring. Follow-up in our office next week.
[2021-11-10 11:49] LABS: POC Glucose,Bedside 94 (70-110)
--- NOTE | 2021-11-10 12:32 | HMH.ANESCL ---
[facility] [place] Anesthesia Checklist - Structural Data Admitted From: Inpatient Planned Operative Procedure/s: Cardioversion Consent for Planned Operative Procedure(s) Verified: Yes Verified Documents: Surgical Consent - Chart Verification Results Verified: CBC, BMP - Additional verifications Anesthesia Reactions: No - Airway Assessment C-Spine Mobility Assessed: No TMJ Mobility Assessed: No Dentition: Edentulous - Neurological Assessment Level of Consciousness: Disoriented - Anesthesia Plan Anesthesia Risk discussed: Yes ASA Class: III Anesthesia Type: MAC [facility] History I have reviewed the patient's past medical history: Yes Medical History: Reports:: Arrhythmia, Atrial Fibrillation, Diabetes Mellitus Type 2, Gastroesophageal Reflux Disease(GERD), Hyperlipidemia, Hypertension, Palpitations Denies:: Cancer, Diabetes Mellitus Type 1, MRSA, Seizures, Valvular Heart Disease *Have you ever received a pneumonia vaccine?: Yes *Have you received a flu vaccine this season?: Yes Other Medical History: Reports: Arthritis, Hypothyroidism Anesthesia experience/problems:: none Other Surgeries: Yes: Appendectomy (Incidental February 1975), Cardiac Catheterization (September 2014 Dr. Lui Mercado [facility]), Cholecystectomy (February 1975), Tubal Ligation (In the ) Amputation: No Fractures: No - *Social History Last grade of school completed: High school graduate Smoking Status: Never smoker Alcohol Intake: never Substance Use Type: denies use *Occupational Status:: retired Housing: house Household Members: spouse *Travel in the last 8 weeks: None Family Hx:: Cancer (Father prostate, mother breast), Diabetes (Mother and brother), Alcoholism (Brother), Other (Sister of COVID-19)
--- NOTE | 2021-11-10 12:40 | PC.NURSE ---
IV's removed from R hand and CATHLEEN. Pt. tolerated well, 2x2 with coban in place on both.
--- NOTE | 2021-11-10 13:02 | PC.NURSE ---
Discharge education provided at this time. Questions encouraged and answered. Pt. v/u.
--- NOTE | 2021-11-10 13:10 | PC.NURSE ---
Pt. left unit via wheelchair, accompanied by staff x1.
--- NOTE | 2021-11-10 13:59 | HMH.PHAINT ---
Discharge counseling complete. Informed pt there were no changes to FITNESS COACH medications. Pt appeared somewhat confused and I went through her med list with her explaining what everything was for. She said something about a Blue pill but could not tell me anything specific. I asked if she was having any possible side effects from her medications and she said no. I urged pt to call home pharmacy and primary care provider to determine what the blue pill is.
--- NOTE | 2021-11-12 21:37 | HMH.DCSUM ---
General - General Admission date:: 11/08/21 Discharge date: 11/10/21 HPI HPI: Ms. Winkler is a 75-year-old female patient of 'suman with a history of type 2 diabetes mellitus, hypertension, hyperlipidemia, and atrial fibrillation, who was seen in the cardiology office but Huber Campbell PA-C for follow-up after attempted cardioversion. The following is documentation by him: Past medical History: 1. Type 2 diabetes mellitus 2. Hypertension A. Echo, 05/2021, 1. Biatrial enlargement, normal left ventricular size, visually estimated ejection fraction 55% with no regional wall motion abnormality, diastolic parameters are inconclusive. 2. Moderately enlarged right ventricle with normal contractility. 3. Trace mitral and moderate tricuspid regurgitation, calculated right ventricular systolic pressure is 54 mmHg. 4. No significant pericardial effusion noted. 5. Inferior vena cava is normal size with normal inspiratory collapse. Electronically signed by : Maikel Winston MD 06/09/2021 13:52:20 3. Hyperlipidemia 4. History of paroxysmal atrial fibrillation, previously controlled on a combination of diltiazem and beta-marry therapy with Xarelto for anticoagulation. A. Diltiazem stopped due to LE edema B. Amiodarone started 11/01/2021 after failed cardioversion attempts 5. Patient reports history of normal cardiac catheterization, 2015, Dr. Lui Mercado, [place], [place]. 6. Hypothyroidism, on replacement therapy 7. Upper extremity tremor, question Parkinson's versus benign essential tremor as the patient has a family history of the same. 75-year-old white female seen in the office today for follow-up for atrial fibrillation. Ms. Winkler had recently been hospitalized for atrial fibrillation with RVR at which time increasing her diltiazem did help control the rate but due to side effects of lower extremity edema, this was discontinued at the time of her cardioversion last week. Patient underwent cardioversion last week x3 to attempt conversion to sinus rhythm. Each attempt only brought sinus rhythm for a few seconds or minutes longer than the previous. Ultimately she only held sinus rhythm for about 5 minutes before converting back to atrial fibrillation. She was started on amiodarone 400 mg twice daily at that time and metoprolol was increased to metoprolol tartrate 100 mg twice daily in an attempt to chemically cardiovert her. She was continued on Xarelto 20 mg daily In the office today for follow-up patient is visibly fatigued and in a wheelchair. She states she cannot do activities around the house without being so tired she needs to stop. Discussion was had with Dr. Akhtar who recommended admission with IV amiodarone loading while continuing oral amiodarone and attempting cardioversion tomorrow. If cardioversion is unsuccessful tomorrow then patient will be referred to electrophysiology (someone at [place] or [facility] at the patient's request) for further evaluation and treatment. The above per cardiology As above: Patient has remained in atrial fibrillation and has been unable to resume her normal activity. Today with this assessment she denies chest pain and shortness of breath. She states she just becomes fatigued with increase in activity. She has been able to do some activities of daily living. Her helps her with the rest. She is eating without difficulty although she has had some heartburn. Hospital Course Hospital Course: The patient was admitted and started on an amiodarone drip with plans for cardioversion the next day. She was started on sliding scale insulin. She had a CT of the chest which showed right upper lobe nodule and a 6-month follow-up chest CT was recommended. There was some scarring in the lung bases. The patient felt well throughout her stay. Her heart rate improved on the amiodarone drip. She was cardioverted successfully and remained in normal sinus rhythm. By 11/10/2021
[2021-12-04 14:36] LABS: POC Glucose,Bedside 143 (70-110)
== END 2021-11-10 13:10 | disposition home or self-care (01) | DRG 309 ==
LOC: 2ND 11-09 07:39 → OB 11-09 19:50
PROVIDERS: Internal Medicine; Nurse Practitioner Family; Admitting Provider Family Medicine; PCP Family Medicine; Visit Provider Family Medicine
DX: I48.0 Paroxysmal atrial fibrillation (principal); E87.1 Hypo-osmolality and hyponatremia; E03.9 Hypothyroidism, unspecified; I11.9 Hypertensive heart disease without heart failure; E11.9 Type 2 diabetes mellitus without complications; Z79.899 Other long term (current) drug therapy; Z79.01 Long term (current) use of anticoagulants; F17.210 Nicotine dependence, cigarettes, uncomplicated; Z79.84 Long term (current) use of oral hypoglycemic drugs; Z20.822 Contact with and (suspected) exposure to COVID-19
CPT/HCPCS: 71250; 80048; 81001; 82962; 85025; 92960; 93005; C9803; J0282; J7060; U0003; U0005

== ENCOUNTER 2021-11-25 04:47 | Inpatient (IN) | payer MEDICARE, SELFPAY ==
[2021-11-25] VITALS (15 sets, daily range): BP systolic 127–174; BP diastolic 68–112; PULSE 60–160; RESP 14–21; TEMP 36.6–37.2; O2SAT 94–98; BMI 29.2; BMI 28.8
--- NOTE | 2021-11-25 04:54 | CT_ITS ---
PROCEDURE INFORMATION: Exam: CT Head Without Contrast Exam date and time: 11/25/2021 4:54 AM Age: 76 years old Clinical indication: Altered mental status/memory loss; Additional info: AMS TECHNIQUE: Imaging protocol: Computed tomography of the head without contrast. Radiation optimization: All CT scans at this facility use at least one of these dose optimization techniques: automated exposure control; mA and/or kV adjustment per patient size (includes targeted exams where dose is matched to clinical indication); or iterative reconstruction. COMPARISON: CT HEAD/BRAIN WO CON 09/02/2021 5:30 PM FINDINGS: Brain: Moderate atrophy. No intracranial hemorrhage. No mass. Few apparent scattered subtle foci of decreased attenuation within periventricular/subcortical white matter. No definite edema. Cerebral ventricles: No hydrocephalus. Paranasal sinuses: No acute sinusitis. Mastoid air cells: No significant effusion. Orbital cavity: Unremarkable as visualized. Bones/joints: No acute fracture. Soft tissues: Unremarkable. IMPRESSION: Probable chronic microvascular ischemic changes. If symptoms persist, consider MRI.
--- NOTE | 2021-11-25 04:58 | ECG_ITS ---
APPROVED REPORT Exam: Resting ECG HR:149 bpm ECG Measurements Heart Rate 149 AXES QRSd 96 QRS 136 QT 319 T 52 QTc 404 Conclusion ATRIAL FIBRILLATION WITH RAPID VENTRICULAR RESPONSE INCOMPLETE RIGHT BUNDLE BRANCH BLOCK [90+ ms QRS DURATION, TERMINAL R IN V1/V2, 40+ ms S IN I/aVL/V4/V5/V6] POSSIBLE RIGHT VENTRICULAR HYPERTROPHY [SOME/ALL OF: PROMINENT R IN V1, LATE TRANSITION, RAD, SANCHEZ, SSS] MODERATE ST DEPRESSION [0.05+ mV ST DEPRESSION] ABNORMAL ECG UNCONFIRMED REPORT Electronically signed by : Eric Maldonado MD 11/26/2021 13:56:39
[2021-11-25 05:16] LABS: Microscopic, Urine URINE MICROSCOPIC (MICROSCOPIC)
[2021-11-25 05:17] LABS: Appearance,Urine CLEAR (Clear); Blood, Urine 1+ (Negative); Color,Urine YELLOW (Yellow); Glucose,Urine (UA) Negative (Negative); Ketones,Urine TRACE (Negative); Leukocyte Esterase,Urine Negative (Negative); Nitrate,Urine Negative (Negative); Protein,Urine 3+ (Negative); Specific Gravity, Urine >= 1.030 (1.005-1.030); Urobilinogen,Urine 0.2 EU/dl (0.2)
[2021-11-25 05:20] LABS: Bilirubin,Urine Negative (Negative)
[2021-11-25 05:21] LABS: Amorphous Sediment,Urine Trace /lpf; Mucus,Urine 1+ /lpf
[2021-11-25 05:33] LABS: Basophils # 0.2 K/mm3 (0-0.2); Basophils % 2.1 % (0.1-2.0); Eosinophils # 0.1 K/mm3 (0.0-0.4); Hematocrit 53.8 % (37.0-47.0); Hemoglobin 17.2 g/dL (12.2-16.2); Lymphocytes # 1.4 K/mm3 (0.7-4.5); Lymphocytes % 15.4 % (10-50); Mean Corpuscular HGB Conc 32.1 g/dL (31.8-35.4); Mean Corpuscular Hemoglobin 28.7 pg (27.0-31.2); Mean Corpuscular Volume 89.4 fl (81-99); Monocytes # 0.5 K/mm3 (0.1-1.0); Monocytes % 5.1 % (1.7-9.3); Neutrophils # 7.2 K/mm3 (1.8-7.8); Neutrophils % 76.4 % (37.0-80.0); Platelet Count 395 K/mm3 (142-424); Red Blood Count 6.02 M/mm3 (4.20-5.40); Red Cell Distribution Width 15.6 % (11.5-17.5); White Blood Count 9.4 K/mm3 (4.8-10.8)
[2021-11-25 05:44] LABS: Alanine Aminotransferase 58 U/L (12-78); Albumin Level 4.5 g/dl (3.5-5.0); Albumin/Globulin Ratio 1.3 (1.1-1.8); Alkaline Phosphatase 75 U/L (38-126); Anion Gap 12.9 mEq/L (5-15); Aspartate Amino Transferase 46 U/L (14-36); Bilirubin,Total 0.8 mg/dl (0.2-1.3); Blood Urea Nitrogen 19 mg/dl (7-17); Carbon Dioxide 32 mmol/L (22.0-30.0); Chloride 97 mmol/L (98-107); Creatinine Clearance Estimated 53 mL/min (50-200); Estimated Glomerular Filt Rate 49 ml/min (>60); GFR (African American) 59 ML/MIN (>60); Globulin 3.5 g/dL (1.3-3.2); Glucose 151 mg/dl (74-100); INR 1.59 (0.9-1.1); Potassium 3.9 mmoL/L (3.5-5.1); Prothrombin Time 17.4 seconds (10.1-12.5); Sodium 138 mmol/L (136-145)
--- NOTE | 2021-11-25 05:44 | HMH.EDGENADL ---
ED Disposition Clinical Impression: Atrial fibrillation with rapid ventricular response, Tremor, Dehydration Disposition: Admitted as Observation Condition on Discharge: Undetermined - Critical Care Critical Care Time: No Attestation: On 11/25/21, the high probability of a clinically significant, sudden or life threatening deterioration of the following system(s) required my full and direct attention, intervention and personal management. The time I documented below is in addition to time spent performing reported procedures but includes the following listed in this critical care notation. Medical Decision Making - Medical Records Medical records reviewed: Yes: I reviewed the patient's medical records. - Frank Inquiry Pt receiving controlled substance: No Vital Signs: 11/25/21 04:35 11/25/21 05:17 11/25/21 05:31 Temperature 98.1 F Temperature Source Oral Pulse Rate 156 H 136 H Pulse Rate [Left Radial] 160 H Respiratory Rate 18 16 15 Blood Pressure 131/108 H 151/98 H Blood Pressure [Right Arm] 145/111 H Blood Pressure Mean 115 115 Blood Pressure Mean [Right Arm] 122 Blood Pressure Position [Right Arm] Sitting 02 Sat by Pulse Oximetry 94 L 95 96 Oxygen Delivery Method Room Air Room Air Room Air 11/25/21 06:00 Temperature Temperature Source Pulse Rate 119 H Pulse Rate [Left Radial] Respiratory Rate 20 Blood Pressure 144/105 H Blood Pressure [Right Arm] Blood Pressure Mean 124 Blood Pressure Mean [Right Arm] Blood Pressure Position [Right Arm] 02 Sat by Pulse Oximetry 97 Oxygen Delivery Method Room Air - Lab Data Lab Results 11/25/21 05:06: Urine Color Yellow, Urine Appearance Clear, Urine pH 6.0, Ur Specific [place] >= 1.030, Urine Protein 3+, Urine Glucose (UA) Negative, Urine Ketones Trace, Urine Blood 1+, Urine Nitrate Negative, Urine Bilirubin Negative, Urine Urobilinogen 0.2, Ur Leukocyte Esterase Negative, Urine RBC 5-10, Urine WBC 3-5, Amorphous Sediment Trace, Urine Mucus 1+ 11/25/21 05:20: WBC 9.4, RBC 6.02 H, Hgb 17.2 H, Hct 53.8 H, MCV 89.4, MCH 28.7, MCHC 32.1, RDW 15.6, Plt Count 395, MPV 8.0, Neut % (Auto) 76.4, Lymph % (Auto) 15.4, [place] % (Auto) 5.1, Eos % (Auto) 1.0, Baso % (Auto) 2.1 H, Neut # (Auto) 7.2, Lymph # (Auto) 1.4, [place] # (Auto) 0.5, Eos # (Auto) 0.1, Baso # (Auto) 0.2 11/25/21 05:20: PT 17.4 H, INR 1.59 H 11/25/21 05:20: Sodium 138, Potassium 3.9, Chloride 97 L, Carbon Dioxide 32 H, Anion Gap 12.9, BUN 19 H, Creatinine 1.10 H, Estimated Creat Clear 53, Estimated GFR 49 L, Est GFR ( Amer) 59, Glucose 151 H, Calcium 9.0, Total Bilirubin 0.8, AST 46 H, ALT 58, Alkaline Phosphatase 75, Total Protein 8.0, Albumin 4.5, Globulin 3.5 H, Albumin/Globulin Ratio 1.3 11/25/21 05:20: Free T4 1.95 Result diagrams: 11/25/21 05:20 11/25/21 05:20 Orders (Tests/Meds): ED MEDICATIONS Discontinued Medications Generic Name Dose Route Start Last Admin Trade Name Freq PRN Reason Stop Dose Admin Amiodarone HCl 400 mg 11/25/21 04:59 11/25/21 05:10 Amiodarone 200mg Tablet PO 11/25/21 05:00 400 mg ONCE ONE Administration Sodium Chloride 500 mls @ 999 mls/hr 11/25/21 05:45 11/25/21 05:48 Sod Chlor 0.9% 1000ml Bag IV 11/25/21 06:15 999 mls/hr .Q31M NILE Administration Metoprolol Tartrate 100 mg 11/25/21 04:59 11/25/21 05:09 Metoprolol Tartrate 50mg Tablet PO 11/25/21 05:00 100 mg ONCE ONE Administration Metoprolol Tartrate 5 mg 11/25/21 05:01 11/25/21 05:49 Metoprolol Tartrate 5mg/5ml Vial IV 11/25/21 05:02 5 mg ONCE ONE Administration ORDERS Category Date Time Status Rapid PCR Covid and Flu A/B Stat Lab 11/25/21 06:38 Received EKG Request [ECG Request by /Joshua] Stat Y 11/25/21 04:55 Ordered - CT Data CT Scan: Head Time Received: 06:[address] Reviewed: Yes: I have reviewed the patient's CT results, I have viewed the radiologist's interpretation Findings Narrative: Patient: Tai Winkler
--- NOTE | 2021-11-25 05:45 | PC.NURSE ---
After several IV attempts, was able to obtain 20g to inside & proximal to AC of Right arm. 7x IV cath attempts & 1x direct stick for labs.
--- NOTE | 2021-11-25 05:47 | PC.NURSE ---
PT TO RADIOLOGY. DENIES CP/SOA. NADN.
[2021-11-25 06:11] LABS: Free T4 (Free Thyroxine) 1.95 ng/dl (0.78-2.19)
--- NOTE | 2021-11-25 06:23 | PC.NURSE ---
PT UPDATED WITH EXPECTED WAIT TIMES. NO CHANGES IN PREVIOUS ASSMNT. BLANKETS GIVEN FOR COMFORT AND WARMTH. NO ACUTE DISTRESS NOTED.
--- NOTE | 2021-11-25 06:33 | PC.NURSE ---
SPOKE WITH PATIENT SPOUSE (MR. BERRIOS) TO VERIFY MEDICATIONS. PTS SPOUSE STATES THAT PATIENT HAS BEEN HAVING CONFUSION AND BEING COMBATIVE AT NIGHT BUT SEEMS FINE DURING THE DAY. PT SPOUSE ALSO REPORTS THAT SHE HAS BEEN HAVING CONFUSION ABOUT HER MEDS FOR THE PAST TWO WEEKS AND THIS IS NOT NORMAL FOR HER. MR BERRIOS ALSO REPORTS THAT PT WAS AFRAID OF THE MEDICATION CHANGES MADE AT PREVIOUS MD VISIT AND HAS NOT BEEN TAKING HER MEDS DUE TO HER FEAR.
--- NOTE | 2021-11-25 06:35 | PC.NURSE ---
DEBBIE MUNOZ speaking with Dr. Lubin
--- NOTE | 2021-11-25 06:40 | PC.NURSE ---
food service kitchen supervisor notified for bed assignment, not step-down but tele monitoring bed
--- NOTE | 2021-11-25 06:40 | PC.NURSE ---
COVID SWAB COLLECTED AND SENT TO LAB. PT TOLERATED WELL. PT MADE AWARE OF PLAN TO ADMIT.
[2021-11-25 06:43] LABS: Coronavirus 19, PCR Not Detected (NotDetected); Influenza A, PCR Not Detected (NotDetected); Influenza B, PCR Not Detected (NotDetected)
--- NOTE | 2021-11-25 06:43 | PC.NURSE ---
ATTEMPT TO CALL REPORT TO FLOOR. NURSE NOT AVAILABLE AT THIS TIME.
--- NOTE | 2021-11-25 06:55 | PC.NURSE ---
REPORT TO YNES GARCIA RN-
--- NOTE | 2021-11-25 07:16 | PC.NURSE ---
pt is resting in bed at this time, awaiting to be taken upstairs to inpatient room. nothing needed.
--- NOTE | 2021-11-25 08:08 | PC.NURSE ---
2nd floor staff down here to get patient to take upstairs to inpatient room.
--- NOTE | 2021-11-25 08:25 | PC.NURSE ---
RN notified of elevated BP.
--- NOTE | 2021-11-25 09:57 | PC.NURSE ---
i attempted to contact pts nok i an attempt to get some medical information. Pt is a poor historian and is confused. she is unsure of her medical history. Awaiting call back from her
--- NOTE | 2021-11-25 10:23 | HMH.PHAINT ---
MEDICATION RECONCILIATION COMPLETE USING LIST FROM MOST RECENT CARDIOLOGY OFFICE VISIT AND EXTERNAL PHARMACY FILL HISTORY
--- NOTE | 2021-11-25 10:26 | HMH.PHAVTE ---
[facility] Pharmacy VTE Monitoring - Patient Demographics Admission date: 11/25/21 Report Date: 11/25/21 Time: 10:27 Allergies/Adverse Reactions: Patient Allergies No Known Allergies Allergy (Verified 11/20/21 11:33) Height: 1.63 m Weight: 76.345 kg Patient Problems: Current Active Problems Tremor (Chronic) Atrial fibrillation with rapid ventricular response (Acute) Dehydration (Acute) - VTE Risk Labs: VTE Related Lab Results Hgb 17.2 g/dL (12.2-16.2) H 11/25/21 05:20 Hct 53.8 % (37.0-47.0) H 11/25/21 05:20 Plt Count 395 K/mm3 (142-424) 11/25/21 05:20 PT 17.4 seconds (10.1-12.5) H 11/25/21 05:20 INR 1.59 (0.9-1.1) H 11/25/21 05:20 BUN 19 mg/dl (7-17) H 11/25/21 05:20 Creatinine 1.10 mg/dl (0.52-1.04) H 11/25/21 05:20 Estimated Creat Clear 53 mL/min (50-200) 11/25/21 05:20 Was VTE Risk Assessment Performed: No Clinical Trial Participant: No - Prophylaxis VTE Prophylaxis Ordered?: Yes Types of VTE Prophylaxis: TEDS Knee High, Pharmacological Location of Applied Device: Bilateral Lower Extremeties Pharmacologic Type: Other (HOME XARELTO RESTARTED)
--- NOTE | 2021-11-25 10:36 | PC.NURSE ---
pt continues to ask where her is. She is confused but remains in the bed. alarm in place
[2021-11-25 11:54] LABS: POC Glucose,Bedside 135 (70-110)
--- NOTE | 2021-11-25 12:44 | HMH.HP ---
*Admission Date: 11/25/21 *Chief complaint: Altered mental status *History of present illness: This 76-year-old white female was admitted through the emergency room. She was found to be in atrial fibrillation with rapid ventricular sponsor. She was recently hospitalized with with atrial fibrillation and rapid ventricular response. She recently had outpatient cardioversion and when I saw her back in the office this past week she was in normal sinus rhythm and on amiodarone. The following is from the emergency room record: 76-year-old female who presents with EMS from home for concerns of altered mental status. called and is unresponsive. On arrival the patient is alert oriented x3 and tells me that she was not speaking because she was mad at her and did not want to speak to him anymore. Further information obtained from demonstrates that she has been noncompliant with her medications because she has been afraid of the new medication change made by cardiology. She has not taken any of her rate controlling medications since Saturday. She denies chest pain shortness of breath fever chills body aches nausea vomiting or diarrhea. also states that she has been sundowning at night becoming combative takes a long nap in the morning and is normal throughout the day. When I talked to the patient and her the story that I am getting does not seem to jive with the above emergency room record. The today is denying that she missed any medication doses but did express concern about reading the possible side effects of amiodarone. After her cardioversion she had been on 400 mg twice a day. When she was seen in my office earlier this week I obtained the cardiology follow-up records and it was recommended that she go to 400 mg once a day of amiodarone. So I am really uncertain as to what the status has been on her medications but as I mentioned before her denies that she has missed any significant doses of medication. However, she returns in rapid atrial fibrillation [facility] History Medical History: Reports:: Arrhythmia, Atrial Fibrillation, Diabetes Mellitus Type 2, Gastroesophageal Reflux Disease(GERD), Hyperlipidemia, Hypertension, Palpitations Denies:: Cancer, Diabetes Mellitus Type 1, MRSA, Seizures, Valvular Heart Disease *Have you ever received a pneumonia vaccine?: Yes *Have you received a flu vaccine this season?: Yes Other Medical History: Reports: Arthritis, Hypothyroidism Other Surgeries: Yes: Appendectomy (Incidental February 1975), Cardiac Catheterization (September 2014 Dr. Lui Mercado [facility]), Cholecystectomy (February 1975), Tubal Ligation (In the ) Amputation: No Fractures: No - *Social History Last grade of school completed: Advanced degree Smoking Status: Never smoker Alcohol Intake: never Substance Use Type: denies use *Occupational Status:: retired Housing: house Household Members: spouse *Travel in the last 8 weeks: None Family Hx:: Unable to obtain Review of Systems - Constitutional Denies anorexia, Denies body ache(s), Denies chills - Eyes Denies change in vision - ENT Denies dizziness, Denies difficulty swallowing - *Cardiovascular Denies chest pain, Denies chest pain at rest, Denies chest pain with activity - *Respiratory Denies chest congestion, Denies cough - *Gastrointestinal Denies abdominal pain - *Musculoskeletal Denies abnormal walking - Integumentary/Breasts Denies yellowing of the skin - *Neurologic Reports behavioral changes, Denies seizure-like activity, Denies localized weakness, Denies loss of vision - Psychiatric Denies confusion, Denies thoughts of hurting/killing yourself - Hematologic/Lymphatic Denies easy bleeding - Allergic/Immunologic Denies GI upset with certain foods Meds Home Medications Medication Instructions Recorded Confirmed Type Losartan/Hydrochlorothiazide 1 tab PO DAILY 05/20/21 11/25/21 History [Losartan-H
--- NOTE | 2021-11-25 14:05 | PC.NURSE ---
Dr. Akhtar notifed of consult on pt.
--- NOTE | 2021-11-25 14:28 | ECG_ITS ---
APPROVED REPORT Exam: Resting ECG HR:64 bpm ECG Measurements Heart Rate 64 AXES NV 150 P -77 QRSd 102 QRS 61 QT 429 T 185 QTc 438 Conclusion ECTOPIC ATRIAL RHYTHM WITH OCCASIONAL SUPRAVENTRICULAR PREMATURE COMPLEXES INDETERMINATE AXIS INCOMPLETE RIGHT BUNDLE BRANCH BLOCK [90+ ms QRS DURATION, TERMINAL R IN V1/V2, 40+ ms S IN I/aVL/V4/V5/V6] POSSIBLE ANTERIOR MYOCARDIAL INFARCTION , PROBABLY OLD [30 ms Q WAVE IN V3/V4, OR R < 0.2 mV IN V4] ABNORMAL RHYTHM ECG UNCONFIRMED REPORT Electronically signed by : Eric Maldonado MD 11/26/2021 13:53:04
[2021-11-25 17:20] LABS: POC Glucose,Bedside 79 (70-110)
[2021-11-26] VITALS (9 sets, daily range): BP systolic 146–184; BP diastolic 74–90; PULSE 55–80; RESP 16–18; TEMP 36.6–37.1; O2SAT 95–100; BMI 28.8
[2021-11-26 06:46] LABS: POC Glucose,Bedside 76 (70-110)
[2021-11-26 06:46] LABS: POC Glucose,Bedside 87 (70-110)
--- NOTE | 2021-11-26 15:32 | HMH.ACPN2 ---
Internal Medicine - PN: Subj *Date: 11/26/21 *Time: 15:32 Interval history: She is comfortable. She is not short of breath. Heart rhythm has stabilized. Exam Vital signs and Labs for Last 24 Hours: Temp Pulse Resp BP Pulse Ox 98.0 F 64 17 146/83 H 95 11/26/21 15:20 11/26/21 15:20 11/26/21 15:20 11/26/21 15:20 11/26/21 15:20 Laboratory Results - last 24 hr 11/25/21 17:11: POC Glucose 79 11/25/21 22:50: POC Glucose 87 11/26/21 05:17: POC Glucose 76 I & O for Last 24 hours: Intake & Output 11/24/21 11/25/21 11/26/21 11/27/21 10:59 10:59 11:59 11:59 Intake Total 400 / 400 Output Total Balance 400 / 400 Weight - Constitutional no acute distress - *Routine HEENT Exam Head: Present: normocephalic Eye: Present: EOMI, PERRL ENT: Present: mucous membranes moist - *Routine Neck Exam Present: supple. Absent: lymphadenopathy - *Routine Respiratory Exam Present: CTA bilaterally - *Routine Cardiovascular Exam Present: RRR - *Routine Abdominal Exam Present: soft, normoactive bowel sounds. Absent: tenderness - *Routine Extremities Exam Absent: cyanosis, clubbing, edema (Support stockings) - *Routine Skin Exam Present: warm. Absent: rash - *Routine Neurological Exam Present: alert, oriented X3 Assessment and Plan (1) Atrial fibrillation with rapid ventricular response Status: Acute Category: Medical Code(s): I48.91 - Unspecified atrial fibrillation (2) Tremor Status: Chronic Category: Medical Code(s): R25.1 - Tremor, unspecified (3) Hyponatremia Status: Chronic Category: Medical Code(s): E87.1 - Hypo-osmolality and hyponatremia (4) Type 2 diabetes mellitus Status: Chronic Qualifiers: Diabetes mellitus halfway insulin use: without halfway use Diabetes mellitus complication status: with other specified complication Qualified Code(s): E11.69 - Type 2 diabetes mellitus with other specified complication Category: Medical Code(s): E11.9 - Type 2 diabetes mellitus without complications (5) Renal insufficiency Status: Acute Category: Medical Code(s): N28.9 - Disorder of kidney and ureter, unspecified - Assessment and plan all Dx Assessment and Plan for all problems:: Continue present treatment. Saline lock. Cardiology consult tomorrow.
[2021-11-26 16:15] LABS: POC Glucose,Bedside 142 (70-110)
[2021-11-27] VITALS: BP 150/92; PULSE 65; PULSE 69; RESP 17; TEMP 36.8; O2SAT 99
[2021-11-27 04:00] VITALS: BP 163/87; PULSE 65; PULSE 70; RESP 17; TEMP 36.9; O2SAT 99
[2021-11-27 05:00] VITALS: BMI 28.5
[2021-11-27 06:48] LABS: Blood Urea Nitrogen 35 mg/dl (7-17); Carbon Dioxide 31 mmol/L (22.0-30.0); Chloride 92 mmol/L (98-107); Creatinine Clearance Estimated 49 mL/min (50-200); Estimated Glomerular Filt Rate 44 ml/min (>60); GFR (African American) 53 ML/MIN (>60); Glucose 125 mg/dl (74-100); Sodium 136 mmol/L (136-145)
[2021-11-27 06:53] LABS: Basophils # 0.2 K/mm3 (0-0.2); Basophils % 1.9 % (0.1-2.0); Eosinophils # 0.1 K/mm3 (0.0-0.4); Eosinophils % 0.7 % (0.1-12.0); Hematocrit 53.4 % (37.0-47.0); Hemoglobin 17.4 g/dL (12.2-16.2); Lymphocytes # 1.6 K/mm3 (0.7-4.5); Lymphocytes % 19.1 % (10-50); Mean Corpuscular HGB Conc 32.5 g/dL (31.8-35.4); Mean Corpuscular Hemoglobin 28.5 pg (27.0-31.2); Mean Corpuscular Volume 87.7 fl (81-99); Mean Platelet Volume 8.7 fl (7.4-10.4); Monocytes # 0.4 K/mm3 (0.1-1.0); Monocytes % 5.3 % (1.7-9.3); Neutrophils # 5.9 K/mm3 (1.8-7.8); Platelet Count 365 K/mm3 (142-424); Red Blood Count 6.09 M/mm3 (4.20-5.40); Red Cell Distribution Width 15.7 % (11.5-17.5); White Blood Count 8.1 K/mm3 (4.8-10.8)
[2021-11-27 07:52] VITALS: BP 150/76; PULSE 74; RESP 19; TEMP 36.6; O2SAT 98
[2021-11-27 08:00] VITALS: PULSE 68; O2SAT 98
--- NOTE | 2021-11-27 08:29 | P.PN_ITS ---
Internal Medicine - PN: Subj *Date: 11/27/21 *Time: 08:29 Interval history: Patient states she is doing well. She is anxious to go home. She did sleep some during the night. She denies chest pain and shortness of breath. She feels her heart has been in rhythm. She is voiding QS. Exam Vital signs and Labs for Last 24 Hours: Temp Pulse Resp BP Pulse Ox 97.8 F 74 19 150/76 H 98 11/27/21 07:52 11/27/21 07:52 11/27/21 07:52 11/27/21 07:52 11/27/21 07:52 Laboratory Results - last 24 hr 11/26/21 16:08: POC Glucose 142 H 11/27/21 05:45: WBC 8.1, RBC 6.09 H, Hgb 17.4 H, Hct 53.4 H, MCV 87.7, MCH 28.5, MCHC 32.5, RDW 15.7, Plt Count 365, MPV 8.7, Neut % (Auto) 73.0, Lymph % (Auto) 19.1, Marion % (Auto) 5.3, Eos % (Auto) 0.7, Baso % (Auto) 1.9, Neut # (Auto) 5.9, Lymph # (Auto) 1.6, Marion # (Auto) 0.4, Eos # (Auto) 0.1, Baso # (Auto) 0.2 11/27/21 05:45: Sodium 136, Potassium 3.0 L D, Chloride 92 L, Carbon Dioxide 31 H, Anion Gap 16.0 H, BUN 35 H D, Creatinine 1.20 H, Estimated Creat Clear 49, Estimated GFR 44 L, Est GFR ( Amer) 53 L, Glucose 125 H, Calcium 9.0 I & O for Last 24 hours: Intake & Output 11/24/21 11/25/21 11/26/21 11/27/21 10:59 10:59 11:59 11:59 Intake Total 640 / 640 Output Total Balance 640 / 640 Weight 166 lb 14.4 oz - Constitutional no acute distress Comments: Sitting up in chair at bedside. Appears comfortable. - *Routine Respiratory Exam Present: crackles (Minimal crackles in bases) - *Routine Cardiovascular Exam Present: RRR (Monitor showing sinus rhythm) - *Routine Abdominal Exam Present: soft, normoactive bowel sounds. Absent: tenderness, distended - *Routine Extremities Exam Present: CATHRYN stockings. Absent: edema, calf tenderness Assessment and Plan (1) Atrial fibrillation with rapid ventricular response Status: Acute Category: Medical Code(s): I48.91 - Unspecified atrial fibrillation (2) Tremor Status: Chronic Category: Medical Code(s): R25.1 - Tremor, unspecified (3) Hyponatremia Status: Chronic Category: Medical Code(s): E87.1 - Hypo-osmolality and hyponatremia (4) Type 2 diabetes mellitus Status: Chronic Qualifiers: Diabetes mellitus assisted insulin use: without equipment operator intermodal yard use Diabetes mellitus complication status: with other specified complication Qualified Code(s): E11.69 - Type 2 diabetes mellitus with other specified complication Category: Medical Code(s): E11.9 - Type 2 diabetes mellitus without complications (5) Renal insufficiency Status: Acute Category: Medical Code(s): N28.9 - Disorder of kidney and ureter, unspecified - Assessment and plan all Dx Assessment and Plan for all problems:: Cardiology to see patient today.
--- NOTE | 2021-11-27 11:30 | HMH.CNCARD ---
History of Present Illness Consult date: 11/27/21 Requesting physician: Radha Neville Consult reason: atrial fibrillation Chief complaint: afib History of present illness: This is a 76-year-old white female who was admitted to the hospital after being found in atrial fibrillation with rapid ventricular response. The patient was at home and there were concerns of altered mental status and her called EMS. Her reported that the patient was unresponsive but on arrival to the emergency department here the patient was alert and oriented x3. The patient reported that she was not speaking to her because she was mad at him and no longer wanted to talk to him so that is why he thought she had an altered mental status. The patient has a history of atrial fibrillation with RVR. She was recently admitted here to [facility] for that and then was cardioverted on an outpatient basis. The patient had been put on oral amiodarone to maintain sinus rhythm. The patient was seen in cardiology clinic last week and the patient reports that she has not taking any of her amiodarone since the day of her visit last week. The patient states that she was concerned with thyroid and liver toxicity so she decided to stop taking the medication. The patient also seems to have some confusion at times. She answers most of my questions correctly but she gets really agitated and combative when you were trying to discuss anything with her. Her reports that she is like this at home and has been having issues with sundowning at night and becoming very combative. The patient likely is having some onset of dementia. She denies any chest pain or pressure. She denies any shortness of breath or edema. She denies any racing of the heart. She denies any fever, chills, nausea, vomiting, diarrhea, PND or orthopnea. Her reports that she has not been taking her medications regularly and he does not know if it is because she forgets that she just does not want to take them. The patient was given oral amiodarone 400 mg x 1 dose and IV metoprolol in the emergency department and she converted back to sinus rhythm. The patient has remained on her oral dose of metoprolol and she has been started on amiodarone 200 mg daily. [facility] History I have reviewed the patient's past medical history: Yes Medical History: Reports:: Arrhythmia, Atrial Fibrillation, Diabetes Mellitus Type 2, Gastroesophageal Reflux Disease(GERD), Hyperlipidemia, Hypertension, Palpitations Denies:: Cancer, Diabetes Mellitus Type 1, MRSA, Seizures, Valvular Heart Disease *Have you ever received a pneumonia vaccine?: Yes *Have you received a flu vaccine this season?: Yes Other Medical History: Reports: Arthritis, Hypothyroidism Other Surgeries: Yes: Appendectomy (Incidental February 1975), Cardiac Catheterization (September 2014 Dr. Lui Mercado [facility]), Cholecystectomy (February 1975), Tubal Ligation (In the ) Amputation: No Fractures: No - *Social History Last grade of school completed: Advanced degree Smoking Status: Never smoker Alcohol Intake: never Substance Use Type: denies use *Occupational Status:: retired Housing: house Household Members: spouse *Travel in the last 8 weeks: None Family Hx:: Unable to obtain Meds Home Medications Medication Instructions Recorded Confirmed Type Losartan/Hydrochlorothiazide 1 tab PO DAILY 05/20/21 11/25/21 History [Losartan-Hctz 100-25 mg Tab] Metoprolol Tartrate [Lopressor 100 100 mg PO BID 05/20/21 11/25/21 History mg Tablets] Potassium Chloride [Klor-Con M10] 10 meq PO BID 05/20/21 11/25/21 History allopurinoL [Allopurinol 100mg 100 mg PO BID 05/20/21 11/25/21 History tablet] glipiZIDE [Glucotrol 5mg tablet] 5 mg PO BIDWMEAL 05/20/21 11/25/21 History Magnesium Oxide [Mag-Ox 400mg Tab] 400 mg PO BID 10/21/21 11/25/21 History Rivaroxaban [Xarelto 20mg Tablet*] 20 mg PO QPMWITHMEAL 10/21/21 11/25/21 History f
[2021-11-27 11:41] VITALS: BMI 28.2
[2021-11-27 12:00] VITALS: BP 132/66; PULSE 58; PULSE 60; RESP 19; TEMP 36.6; O2SAT 96
[2021-11-27 13:19] LABS: POC Glucose,Bedside 175 (70-110)
[2021-11-27 16:00] VITALS: BP 130/70; PULSE 60; PULSE 62; RESP 19; TEMP 36.7; O2SAT 99
--- NOTE | 2021-11-27 16:11 | PC.NURSE ---
1610 PT HAS BEEN UP TO CHAIR AND IN BED TODAY. APPROPRIATE WITH CARE. AMBULATED WITH STANDBY ASSIST. A&O X 4, QUESTIONABLE TIMES OF MILD CONFUSION R/T SITUATION. HEART RATE REGULAR, LUNGS CTAB. IV PATENT. VOIDS WITHOUT DIFFICULTY. ABD SOFT AND NON-TENDER. BOWEL SOUNDS ACTIVE X 4 QUADS. SKIN INTACT. AT BEDSIDE. NO NEEDS VOICED AT THIS TIME
[2021-11-27 17:06] LABS: POC Glucose,Bedside 86 (70-110)
--- NOTE | 2021-11-27 21:56 | HMH.DCSUM ---
General - General Admission date:: 11/25/21 Discharge date: 11/27/21 HPI HPI: This 76-year-old white female was admitted through the emergency room. She was found to be in atrial fibrillation with rapid ventricular response. She was recently hospitalized with with atrial fibrillation and rapid ventricular response. She recently had outpatient cardioversion and when I saw her back in the office this past week she was in normal sinus rhythm and on amiodarone. The following is from the emergency room record: 76-year-old female who presents with EMS from home for concerns of altered mental status. called and is unresponsive. On arrival the patient is alert oriented x3 and tells me that she was not speaking because she was mad at her and did not want to speak to him anymore. Further information obtained from demonstrates that she has been noncompliant with her medications because she has been afraid of the new medication change made by cardiology. She has not taken any of her rate controlling medications since Saturday. She denies chest pain shortness of breath fever chills body aches nausea vomiting or diarrhea. also states that she has been sundowning at night becoming combative takes a long nap in the morning and is normal throughout the day. When I talked to the patient and her the story that I am getting does not seem to jive with the above emergency room record. The today is denying that she missed any medication doses but did express concern about reading the possible side effects of amiodarone. After her cardioversion she had been on 400 mg twice a day. When she was seen in my office earlier this week I obtained the cardiology follow-up records and it was recommended that she go to 400 mg once a day of amiodarone. So I am really uncertain as to what the status has been on her medications but as I mentioned before her denies that she has missed any significant doses of medication. However, she returns in rapid atrial fibrillation Hospital Course Hospital Course: The patient was admitted and cardiology was consulted. She received 400 mg of oral amiodarone x1 dose and IV metoprolol in the emergency department and converted back to sinus rhythm. She was therefore started on her oral dose of metoprolol and 200 mg of amiodarone. She remained in sinus rhythm and wanted to be discharged home. She denied any chest pain or shortness of breath. Cardiology did see the patient and wanted her to continue amiodarone 200 mg daily. They felt medical noncompliance was an issue as the patient seemed to be forgetting to take her medications. Cardiology felt the patient would benefit from a neurology referral as it was felt she may have dementia. Her Norvasc was stopped and she was started on diltiazem ER 120 mg daily for atrial fibrillation suppression. Her Lasix was stopped as well. She was started on Aldactone 100 mg daily for diuresis and hypokalemia. Cardiology wanted her to follow-up with them in 1 week and she was discharged. Objective Vital signs: Temp Pulse Resp BP Pulse Ox 98.0 F 62 19 130/70 99 11/27/21 16:00 11/27/21 16:00 11/27/21 16:00 11/27/21 16:00 11/27/21 16:00 Narrative: - *Routine HEENT Exam Head: Present: normocephalic Eye: Present: EOMI, PERRL ENT: Present: mucous membranes moist - *Routine Neck Exam Present: supple. Absent: JVD, lymphadenopathy - *Routine Respiratory Exam Present: CTA bilaterally - *Routine Cardiovascular Exam Present: tachycardia, irregular rhythm - *Routine Abdominal Exam Present: soft, normoactive bowel sounds. Absent: tenderness, organomegaly - *Routine Rectal Exam Rectal:: deferred - *Routine Genitalia Exam Genitalia:: deferred - *Routine Extremities Exam Absent: cyanosis, clubbing, edema (Support stockings) - *Routine Skin Exam Present: warm. Absent: rash - *Routine Neurological Exam Present
== END 2021-11-27 18:53 | disposition home or self-care (01) | DRG 309 ==
LOC: ER 06:01 → 2ND 06:56
PROVIDERS: Admitting Provider Family Medicine; Emergency Provider Student in an Organized Health Care Education/Training Program; PCP Family Medicine; Visit Provider Family Medicine
DX: I48.91 Unspecified atrial fibrillation (principal); E87.1 Hypo-osmolality and hyponatremia; E11.9 Type 2 diabetes mellitus without complications; K21.9 Gastro-esophageal reflux disease without esophagitis; E78.5 Hyperlipidemia, unspecified; E03.9 Hypothyroidism, unspecified; M19.90 Unspecified osteoarthritis, unspecified site; N28.9 Disorder of kidney and ureter, unspecified; Z79.01 Long term (current) use of anticoagulants; Z20.822 Contact with and (suspected) exposure to COVID-19; Z79.84 Long term (current) use of oral hypoglycemic drugs
CPT/HCPCS: 36415; 70450; 80048; 80053; 81001; 82962; 84439; 85025; 85610; 93005; 96365; 96375; 99285; C9803; U0003; U0005

== ENCOUNTER 2021-12-01 12:25 | Emergency (ER) | payer MEDICARE, SELFPAY ==
[2021-12-01] VITALS (12 sets, daily range): BP systolic 98–130; BP diastolic 56–100; PULSE 66–79; RESP 12–19; TEMP 36.8–36.9; O2SAT 96–100; BMI 28.3
--- NOTE | 2021-12-01 12:35 | HMH.EDGENADL ---
ED Disposition Clinical Impression: Physical deconditioning, Mild dehydration Disposition: Home, Self-Care Condition on Discharge: Good Additional Instructions: Please continue to monitor your condition very closely at home. If you start experiencing fever, shortness of breath, chest pain, fast heart rate or you faint, please return promptly to the emergency department for reassessment. Also return should you have any additional concerns. Please discuss possible physical therapy with your primary care physician in follow-up on Saturday. Referrals: Radha Neville MD [Primary Care Provider] - - Critical Care Critical Care Time: No Attestation: On , the high probability of a clinically significant, sudden or life threatening deterioration of the following system(s) required my full and direct attention, intervention and personal management. The time I documented below is in addition to time spent performing reported procedures but includes the following listed in this critical care notation. Medical Decision Making - Medical Records Medical records reviewed: Yes: I reviewed the patient's medical records. - Frank Inquiry Pt receiving controlled substance: No Vital Signs: 12/01/21 12:37 12/01/21 13:00 12/01/21 13:30 Temperature 98.5 F Temperature Source Oral Pulse Rate 71 70 Pulse Rate [Left Radial] 78 Respiratory Rate 17 17 13 Blood Pressure 120/77 110/73 Blood Pressure [Right Arm] 130/79 Blood Pressure Mean 98 85 Blood Pressure Mean [Right Arm] 96 02 Sat by Pulse Oximetry 99 98 99 Oxygen Delivery Method Room Air 12/01/21 14:00 12/01/21 14:30 12/01/21 15:00 Temperature Temperature Source Pulse Rate 75 70 74 Pulse Rate [Left Radial] Respiratory Rate 18 13 19 Blood Pressure 115/71 113/69 101/65 L Blood Pressure [Right Arm] Blood Pressure Mean 79 87 68 Blood Pressure Mean [Right Arm] 02 Sat by Pulse Oximetry 96 98 98 Oxygen Delivery Method 12/01/21 15:30 12/01/21 16:01 12/01/21 16:31 Temperature Temperature Source Pulse Rate 66 73 74 Pulse Rate [Left Radial] Respiratory Rate 17 13 17 Blood Pressure 102/68 L 119/66 98/56 L Blood Pressure [Right Arm] Blood Pressure Mean 67 83 72 Blood Pressure Mean [Right Arm] 02 Sat by Pulse Oximetry 98 99 100 Oxygen Delivery Method - Lab Data Lab results reviewed: Yes: I reviewed the patient's lab results. Lab Results 12/01/21 15:57: WBC 9.2, RBC 5.80 H, Hgb 16.7 H, Hct 50.2 H, MCV 86.5, MCH 28.9, MCHC 33.4, RDW 16.1, Plt Count 385, MPV 8.9, Neut % (Auto) 68.7, Lymph % (Auto) 22.7, Giles % (Auto) 5.8, Eos % (Auto) 0.8, Baso % (Auto) 2.0, Neut # (Auto) 6.3, Lymph # (Auto) 2.1, Giles # (Auto) 0.5, Eos # (Auto) 0.1, Baso # (Auto) 0.2 12/01/21 15:57: Sodium 136, Potassium 3.3 L, Chloride 94 L, Carbon Dioxide 34 H, Anion Gap 11.3, BUN 53 H, Creatinine 1.60 H, Estimated Creat Clear 33, Estimated GFR 32 L, Est GFR ( Amer) 38 L, Glucose 67 L, Calcium 8.8, Magnesium 1.9, Total Bilirubin 0.8, AST 47 H, ALT 53, Alkaline Phosphatase 70, Troponin I 0.03, Total Protein 7.6, Albumin 4.2, Globulin 3.4 H, Albumin/Globulin Ratio 1.2 Result diagrams: 12/01/21 15:57 12/01/21 15:57 Orders (Tests/Meds): ORDERS Category Date Time Status Troponin I Q3H Lab 12/01/21 17:45 Ordered Troponin I Q3H Lab 12/01/21 20:45 Ordered Medical Decision Narrative: Patient is a 76-year-old asymptomatic female presenting for chief complaint of checkup due to 's concern. Differential diagnosis includes, but is not limited to, routine checkup, confusion, generalized weakness, electrolyte abnormality, underlying infection. Given cardiac history, patient was evaluated with CBC, CMP, magnesium, troponin, EKG. lab work showed mildly elevated creatinine, elevated H/H and elevated BUN, likely secondary to mild dehydration and hemoconcentration. Patient continues to have normal vital signs and feels well. I spoke with patie
--- NOTE | 2021-12-01 12:36 | ECG_ITS ---
APPROVED REPORT Exam: Resting ECG HR:82 bpm ECG Measurements Heart Rate 82 AXES QRSd 118 QRS 101 QT 408 T -48 QTc 446 Conclusion Mobitz type II AV block with Wenckebach pattern with PVCs noted INDETERMINATE AXIS INCOMPLETE RIGHT BUNDLE BRANCH BLOCK [90+ ms QRS DURATION, TERMINAL R IN V1/V2, 40+ ms S IN I/aVL/V4/V5/V6] POSSIBLE ANTERIOR MYOCARDIAL INFARCTION , OF INDETERMINATE AGE [30 ms Q WAVE IN V3/V4, OR R < 0.2 mV IN V4] INFERIOR MYOCARDIAL INFARCTION , OF INDETERMINATE AGE [40+ ms Q WAVE AND/OR ST/T ABNORMALITY IN II/aVF] MODERATE T-WAVE ABNORMALITY, CONSIDER LATERAL ISCHEMIA [-0.1+ mV T-WAVE IN I/aVL/V5/V6] ABNORMAL ECG UNCONFIRMED REPORT Electronically signed by : Eric Maldonado MD 12/02/2021 12:29:20
--- NOTE | 2021-12-01 14:33 | XR_ITS ---
FINAL REPORT CLINICAL HISTORY: assess for cardiopulmonary abnormality COMPARISON: October 21, 2021 FINDINGS: A single portable view of the chest was obtained. The heart size and pulmonary vascularity are within normal limits. The mediastinum is within normal limits. No acute pulmonary abnormality is identified. There is no pneumothorax. The bony thorax is intact. IMPRESSION: No active cardiopulmonary disease. Reviewed, Interpreted and Dictated by Jimmy Miller III, MD Transcribed by Arron Wilcox Authenticated by Jimmy Miller III, MD on 12/01/2021 03:03:[address] [facility] [place]
--- NOTE | 2021-12-01 16:03 | CT_ITS ---
PROCEDURE INFORMATION: Exam: CT Head Without Contrast Exam date and time: 12/01/2021 4:09 PM Age: 76 years old Clinical indication: Injury or trauma; Fall; Blunt trauma (contusions or hematomas); Additional info: Falls, blood thinner use TECHNIQUE: Imaging protocol: Computed tomography of the head without contrast. Radiation optimization: All CT scans at this facility use at least one of these dose optimization techniques: automated exposure control; mA and/or kV adjustment per patient size (includes targeted exams where dose is matched to clinical indication); or iterative reconstruction. COMPARISON: CT HEAD/BRAIN WO CON 11/25/2021 5:01 AM FINDINGS: Brain: Prominent sulci. Patchy hypodensity of the cerebral white matter which are nonspecific but likely secondary to microangiopathic changes. Cerebral ventricles: The ventricles are prominent secondary to diffuse volume loss/atrophy. Paranasal sinuses: Visualized sinuses are unremarkable. No fluid levels. Mastoid air cells: Visualized mastoid air cells are well aerated. Bones/joints: Unremarkable. No acute fracture. Soft tissues: Unremarkable. IMPRESSION: Chronic age related changes but no evidence of acute intracranial pathology.
[2021-12-01 16:17] LABS: Chloride 94 mmol/L (98-107)
[2021-12-01 16:18] LABS: Basophils # 0.2 K/mm3 (0-0.2); Eosinophils # 0.1 K/mm3 (0.0-0.4); Eosinophils % 0.8 % (0.1-12.0); Hematocrit 50.2 % (37.0-47.0); Hemoglobin 16.7 g/dL (12.2-16.2); Lymphocytes # 2.1 K/mm3 (0.7-4.5); Lymphocytes % 22.7 % (10-50); Mean Corpuscular HGB Conc 33.4 g/dL (31.8-35.4); Mean Corpuscular Hemoglobin 28.9 pg (27.0-31.2); Mean Corpuscular Volume 86.5 fl (81-99); Mean Platelet Volume 8.9 fl (7.4-10.4); Monocytes # 0.5 K/mm3 (0.1-1.0); Monocytes % 5.8 % (1.7-9.3); Neutrophils # 6.3 K/mm3 (1.8-7.8); Neutrophils % 68.7 % (37.0-80.0); Platelet Count 385 K/mm3 (142-424); Potassium 3.3 mmoL/L (3.5-5.1); Red Cell Distribution Width 16.1 % (11.5-17.5); Sodium 136 mmol/L (136-145); White Blood Count 9.2 K/mm3 (4.8-10.8)
[2021-12-01 16:20] LABS: Alanine Aminotransferase 53 U/L (12-78); Aspartate Amino Transferase 47 U/L (14-36); Blood Urea Nitrogen 53 mg/dl (7-17); Creatinine Clearance Estimated 33 mL/min (50-200); Estimated Glomerular Filt Rate 32 ml/min (>60); GFR (African American) 38 ML/MIN (>60)
[2021-12-01 16:21] LABS: Albumin Level 4.2 g/dl (3.5-5.0); Albumin/Globulin Ratio 1.2 (1.1-1.8); Alkaline Phosphatase 70 U/L (38-126); Anion Gap 11.3 mEq/L (5-15); Bilirubin,Total 0.8 mg/dl (0.2-1.3); Calcium 8.8 mg/dl (8.4-10.2); Carbon Dioxide 34 mmol/L (22.0-30.0); Globulin 3.4 g/dL (1.3-3.2); Glucose 67 mg/dl (74-100); Magnesium 1.9 mg/dl (1.6-2.3); Total Protein,Serum 7.6 g/dl (6.3-8.2)
[2021-12-01 16:33] LABS: Troponin I 0.03 ng/ml (0.00-0.034)
== END 2021-12-01 18:00 | disposition home or self-care (01) ==
PROVIDERS: Emergency Provider Emergency Medicine; PCP Family Medicine
DX: R00.2 Palpitations (principal); E86.0 Dehydration; R25.1 Tremor, unspecified; I10 Essential (primary) hypertension; I48.91 Unspecified atrial fibrillation; K21.9 Gastro-esophageal reflux disease without esophagitis; E11.9 Type 2 diabetes mellitus without complications; E03.9 Hypothyroidism, unspecified; M19.90 Unspecified osteoarthritis, unspecified site; Z79.01 Long term (current) use of anticoagulants; Z79.899 Other long term (current) drug therapy
CPT/HCPCS: 70450; 71045; 80053; 83735; 84484; 85025; 93005; 99285

== ENCOUNTER 2021-12-08 14:11 | Inpatient (IN) | payer MEDICARE, SELFPAY ==
--- NOTE | 2021-12-08 14:48 | PC.NURSE ---
Pt arrived to the floor at this time
[2021-12-08 15:00] VITALS: BP 113/74; PULSE 103; RESP 18; TEMP 36.8; O2SAT 99
[2021-12-08 15:07] VITALS: BMI 28.5
--- NOTE | 2021-12-08 15:16 | P.CONPHA_ITS ---
[facility] Pharmacy VTE Monitoring - Patient Demographics Admission date: 12/08/21 Report Date: 12/08/21 Time: 15:16 Allergies/Adverse Reactions: Patient Allergies No Known Allergies Allergy (Verified 12/08/21 13:26) Height: 1.63 m Weight: 75.41 kg - VTE Risk Clinical Trial Participant: No - Prophylaxis VTE Prophylaxis Ordered?: Yes Types of VTE Prophylaxis: TEDS Knee High
--- NOTE | 2021-12-08 15:30 | HMH.HP ---
*Admission Date: 12/08/21 *Chief complaint: rash, jittery, frequent falls, UTI, Afib *History of present illness: Ms. Winkler is a 76-year-old female who was just recently discharged from [facility] on 11/27/2021 after an admission for atrial fib with rapid ventricular response. This was her second admission for this and she had previously had cardioversion to normal sinus rhythm but had been noncompliant with her medications and went back into A. fib. During this past admission, she was started on amiodarone and metoprolol and converted back to sinus rhythm. She remained in sinus rhythm and was discharged home. She states she followed up with cardiology recently and everything was fine. She was however seen again in the emergency room on 12/01/2021 after a fall at home. Her had complained that she had had some confusion and generalized weakness. Her creatinine was mildly elevated during that visit and there was a concern with some dementia. The ER doctor did a CT of the head with contrast due to her frequent falls and it showed nothing acute. The ER physician advised her to hold her Lasix dose due to mild dehydration and follow-up with her PCP. She and her were offered a neurology referral for dementia but declined. The patient never did follow-up with Dr. Neville after this visit. She presented to the office today with complaints of a rash in the folds of her abdomen. She appeared to be mildly confused and a CBC revealed an elevated white blood cell count and urinalysis showed a possible UTI. She was in atrial fib with a rate in the 120s in the office and cardiology was contacted. She was sent down to their office and was seen by Huber Campbell. An EKG was done showing A. fib with a rate of 121. It was felt the best decision was to admit the patient for IV amiodarone along with IV antibiotics for her UTI. Her expressed concern about taking care of her at home, therefore care management will be consulted for possible placement at discharge. It is also unclear whether or not she has been taking her medications correctly. [facility] History I have reviewed the patient's past medical history: Yes Medical History: Reports:: Arrhythmia, Atrial Fibrillation, Diabetes Mellitus Type 2, Gastroesophageal Reflux Disease(GERD), Hyperlipidemia, Hypertension, Palpitations Denies:: Cancer, Diabetes Mellitus Type 1, MRSA, Seizures, Valvular Heart Disease *Have you ever received a pneumonia vaccine?: Yes *Have you received a flu vaccine this season?: Yes Other Medical History: Reports: Arthritis, Hypothyroidism Other Surgeries: Yes: Appendectomy (Incidental February 1975), Cardiac Catheterization (September 2014 Dr. Lui Mercado [facility]), Cholecystectomy (February 1975), Tubal Ligation (In the ) Amputation: No Fractures: No - *Social History Smoking Status: Never smoker Alcohol Intake: never Substance Use Type: denies use *Occupational Status:: retired Housing: house Household Members: spouse *Travel in the last 8 weeks: None Family Hx:: Unable to obtain Review of Systems - Constitutional Reports malaise, Reports weakness, Denies fever(s) - Eyes Denies blurry vision, Denies double vision - ENT Denies nasal congestion, Denies sore throat - *Cardiovascular Denies chest pain, Denies shortness of breath - *Respiratory Denies cough, Denies shortness of breath - *Gastrointestinal Denies abdominal pain, Denies loose stools, Denies nausea, Denies vomiting - *Genitourinary Denies difficulty urinating, Denies painful urination - *Musculoskeletal Reports body aches - *Neurologic Reports unsteadiness, Reports frequent falls, Reports headache(s), Reports dizziness, Reports weakness - Psychiatric Reports behavioral changes, Reports confusion Meds Home Medications Medication Instructions Recorded Confirmed Type Metoprolol Tartrate [Lopressor 100 100 mg PO BID 05/20/21 12/08/21 History mg Tablets] allop
--- NOTE | 2021-12-08 15:40 | HMH.OTEV ---
OT Inpatient Evaluation Rehab OT IP Evaluation Start: 12/08/21 15:02 Freq: ONCE Status: Complete Protocol: Document 12/08/21 15:36 [facility] (Rec: 12/08/21 15:40 [facility] [id number]) Rehab OT IP Assessment Subjective History Pt oriented x 3 on arrival. Pt was admitted 12/08 via direct admit from doctor office due to UTI and Afib. Pt reports prior to being in the hospital she lived at home with her . Pt claims she was independent with ADLs and IADLs. She did not drive anymore. She used a walker during ambulation. Pt has a past medical history of: Arrhythmia, Atrial Fibrillation, Diabetes Mellitus Type 2, Gastroesophageal Reflux Disease(GERD), Hyperlipidemia, Hypertension, Palpitations Subjective I am doing fine I think. Pt completed bed mobility and went from supine to eob with sba. Pt stood from eob with cga. pt engaged in functional mobility task of ~20 feet with cga. Pt returned to eob with cga. Pt completed bed mobility and went from sitting to supine with cga. Pt was left with call markham and all other needs in reach. Objective Patient Orientation Person,Place,Birthday Upper Extremity Gross ROM WFL Bed Mobility bed mobility-scooting,bed mobility - supine/sit,bed mobility - rolling Assist Level Supervision/Stand by Transfer Training Sit/Stand Transfer Assist Level Contact Guard/Hand Hold Rehab OT IP prob,goals,plan Problems Date of Evaluation: 12/08/21 Rehab Potential Rehab Potential Innapropriate for Skilled Therapy Discharge Plan OT Discharge Plan At this time, pt appears to be at baseline. Pt can return home with once medically stable per physician . Eval Complexity Eval Charge Codes
--- NOTE | 2021-12-08 15:40 | HMH.PTEV ---
Physical Therapy Evaluation Rehab PT IP Evaluation Start: 12/08/21 15:02 Freq: ONCE Status: Active Protocol: Document 12/08/21 15:35 [facility] (Rec: 12/08/21 15:40 [facility] [id number]) Subjective/History History History Patient is a 76 year old female admitted to [facility] 12/08/21 with the diagnosis of UTI and AFIB. She currently lives at home with and ambulates independently most of the time. She reports that she intermittently uses a rolling walker. She reports that she is independent with all household duties and ADL's . Subjective Subjective I'm feeling just fine right now. Rehab PT IP Eval Objective Appearance Patient Behavior Appropriate,Cooperative, Talkative Patient Orientation Person,Place,Birthday Difficulty following instructions none Speech Pattern Clear,Appropriate Ambulation Patient Able to Ambulate Yes Ambulation Observation IP General Gait Pattern Observation No Deviations/Normal Ambulation Distance (feet) 10 Ambulation Assistive Device None Ambulation Ability Contact Guard/Hand Hold Balance Ability to Arise Able, w/o using arms Sitting Balance Steady, safe Standing Balance Narrow stance w/o support Dynamic Sitting Balance Ability Normal Dynamic Standing Balance Ability Normal Transfers Bed Transfer Ability Independent Sit to Stand Bed Transfer Ability Contact Guard/Hand Hold ROM All Extremities PT ROM Status WFL MMT All Extremities PT MMT WFL Rehab PT IP prob,goals,plan Problems Date of Evaluation: 12/08/21 Discharge Plan PT Discharge Plan PT suggest patient is good to discharge home once deemed medically stable by . G -code Required No Eval Complexity Eval Charge Codes [id number] - High Complexity PHYSICIAN CERTIFICATION: I certify the specified therapy services for Tai Winkler are required, authorized, and reviewed every 30 days.
[2021-12-08 16:00] VITALS: BP 116/78; PULSE 118; PULSE 90; RESP 20; O2SAT 98
--- NOTE | 2021-12-08 16:17 | HMH.PNCARD ---
Subjective Date: 12/08/21 Time: 16:17 Principal diagnosis: A. fib with RVR, UTI Interval history: Pt back in A. fib with RVR and is symptomatic with SOA and weakness. Also, has UTI and yeast infection in folds of panus. Unclear if patient is taking meds correctly. Hx of heart cath in 2014 pt states no blockages were noted. HTN-BP controlled HLD-LDL goal is < 100, LDL is 112 in 05/2021. A-fib with RVR, A/C with Xarelto. On Amiodarone started post cardioversion. DM is present. Hypothyroid, on replacement.? Recent labs normal. Plan Recommend admission for IV amiodarone loading with continued amiodarone oral dosing but increase back to 400 mg daily if LFT's, Thyroid functions are normal. Possible that UTI may have caused return of A. fib with RVR. Payton and Dr. Neville are in agreement with admission for treatment. Pt and have expressed desire to see EP at [facility] after discharge home. Will arrange. Exam I & O for Last 24 hours: Intake & Output 12/06/21 12/07/21 12/08/21 12/09/21 11:59 11:59 11:59 11:59 Weight 166 lb 4 oz - Constitutional no acute distress - *Routine Respiratory Exam Present: CTA bilaterally - *Routine Cardiovascular Exam Present: tachycardia, irregularly irregular - *Routine Extremities Exam Present: edema. Absent: cyanosis, clubbing - *Routine Neurological Exam Present: alert, oriented X3 Progress Note: A&P (1) Urinary tract infection Status: Acute (2) Atrial fibrillation with rapid ventricular response Status: Acute (3) intermediate card tender current use of anticoagulant Status: Chronic (4) Hypertensive cardiovascular disease Status: Chronic (5) Hypothyroidism (acquired) Status: Chronic (6) Mixed hyperlipidemia Status: Chronic (7) Type 2 diabetes mellitus Status: Chronic Assessment and Plan for All Diagnoses:: 1. Load with IV amiodarone and continue oral dose but increase to 400 mg daily to help maintain NSR if she converts. Continue metoprolol 100 mg BID along with diltiazem 120 mg daily, lasix and spironolactone. Check labs, may not need additional potassium. 2. Check LFT's and thyroids 3. Continue anticoagulation. 4. Will refer to EP as outpatient.
[2021-12-08 16:33] LABS: Chloride 99 mmol/L (98-107); Potassium 3.3 mmoL/L (3.5-5.1); Sodium 133 mmol/L (136-145)
[2021-12-08 16:36] LABS: Alanine Aminotransferase 48 U/L (12-78); Albumin Level 3.8 g/dl (3.5-5.0); Albumin/Globulin Ratio 1.2 (1.1-1.8); Alkaline Phosphatase 87 U/L (38-126); Anion Gap 11.3 mEq/L (5-15); Aspartate Amino Transferase 44 U/L (14-36); Bilirubin,Total 0.7 mg/dl (0.2-1.3); Blood Urea Nitrogen 29 mg/dl (7-17); Carbon Dioxide 26 mmol/L (22.0-30.0); Creatinine Clearance Estimated 53 mL/min (50-200); Estimated Glomerular Filt Rate 49 ml/min (>60); GFR (African American) 59 ML/MIN (>60); Globulin 3.1 g/dL (1.3-3.2); Total Protein,Serum 6.9 g/dl (6.3-8.2)
[2021-12-08 16:37] LABS: Calcium 8.9 mg/dl (8.4-10.2); Glucose 71 mg/dl (74-100); Lactic Acid 0.7 mmol/L (0.7-2.1)
[2021-12-08 16:45] LABS: Basophils # 0.3 K/mm3 (0-0.2); Basophils % 2.5 % (0.1-2.0); Eosinophils # 0.1 K/mm3 (0.0-0.4); Eosinophils % 0.5 % (0.1-12.0); Hematocrit 49.1 % (37.0-47.0); Hemoglobin 15.5 g/dL (12.2-16.2); Lymphocytes # 2.4 K/mm3 (0.7-4.5); Lymphocytes % 21.5 % (10-50); Mean Corpuscular HGB Conc 31.6 g/dL (31.8-35.4); Mean Corpuscular Hemoglobin 28.2 pg (27.0-31.2); Mean Corpuscular Volume 89.2 fl (81-99); Mean Platelet Volume 8.9 fl (7.4-10.4); Monocytes # 0.4 K/mm3 (0.1-1.0); Monocytes % 3.6 % (1.7-9.3); Neutrophils # 8.1 K/mm3 (1.8-7.8); Neutrophils % 71.9 % (37.0-80.0); Platelet Count 317 K/mm3 (142-424); Red Cell Distribution Width 16.1 % (11.5-17.5); White Blood Count 11.2 K/mm3 (4.8-10.8)
[2021-12-08 16:53] LABS: Coronavirus 19, PCR Not Detected (NotDetected); Influenza A, PCR Not Detected (NotDetected); Influenza B, PCR Not Detected (NotDetected)
[2021-12-08 17:00] VITALS: BP 109/80; PULSE 128; RESP 16; O2SAT 95
[2021-12-08 17:11] LABS: Magnesium 1.5 mg/dl (1.6-2.3)
[2021-12-08 18:15] LABS: T4 (Thyroxine) 12.2 ug/dl (5.53-11.0)
[2021-12-08 18:28] LABS: Thyroid Stimulating Hormone 5.16 uIU/mL (0.465-4.68)
[2021-12-08 18:57] LABS: Free Thyroxine Index 4.8 ug/dL (5.93-13.13); Triiodothryronine (T3) Uptake 39 % (23.5-40.5)
[2021-12-08 19:19] LABS: Microscopic, Urine URINE MICROSCOPIC (MICROSCOPIC)
[2021-12-08 19:34] LABS: Appearance,Urine CLOUDY (Clear); Bilirubin,Urine Negative (Negative); Blood, Urine Negative (Negative); Color,Urine YELLOW (Yellow); Glucose,Urine (UA) Negative (Negative); Ketones,Urine TRACE (Negative); Leukocyte Esterase,Urine 2+ (Negative); Nitrate,Urine Negative (Negative); Protein,Urine 2+ (Negative); Specific Gravity, Urine 1.015 (1.005-1.030); Urobilinogen,Urine 0.2 EU/dl (0.2)
[2021-12-08 20:00] VITALS: BP 115/59; PULSE 100; PULSE 105; PULSE 107; RESP 19; TEMP 36.4; O2SAT 95; O2SAT 96
[2021-12-08 20:07] LABS: WBC,Urine 20-50 #/hpf (0-3)
[2021-12-08 22:00] VITALS: BP 115/79; PULSE 94; RESP 16; O2SAT 97
--- NOTE | 2021-12-08 22:50 | PC.NURSE ---
amiodarone decreased to 0.5mg/min for 18 hours per protocol
--- NOTE | 2021-12-08 22:50 | PC.NURSE ---
amiodarone drip decreased to 0.5mg/min per ordered protocol; will continue at this rate for 16 hours
[2021-12-09] VITALS (13 sets, daily range): BP systolic 101–151; BP diastolic 64–98; PULSE 85–121; RESP 11–24; TEMP 36.4–37; O2SAT 94–99; BMI 29.0
[2021-12-09 01:21] LABS: POC Glucose,Bedside 209 (70-110)
--- NOTE | 2021-12-09 04:12 | PC.NURSE ---
notified MD Lubin correctional therapy teacher that pt c/o pain and no pain medication ordered and pt c/o nausea with dry heaving and no nausea medication ordered, ordered tylenol q4 prn and zofran q6 prn, will fax to night watch
[2021-12-09 06:34] LABS: Basophils # 0.1 K/mm3 (0-0.2); Basophils % 1.3 % (0.1-2.0); Eosinophils # 0.2 K/mm3 (0.0-0.4); Eosinophils % 1.4 % (0.1-12.0); Hematocrit 45.3 % (37.0-47.0); Hemoglobin 14.6 g/dL (12.2-16.2); Lymphocytes # 2.1 K/mm3 (0.7-4.5); Lymphocytes % 19.4 % (10-50); Mean Corpuscular HGB Conc 32.1 g/dL (31.8-35.4); Mean Corpuscular Hemoglobin 28.6 pg (27.0-31.2); Mean Corpuscular Volume 89.2 fl (81-99); Mean Platelet Volume 9.7 fl (7.4-10.4); Monocytes # 0.5 K/mm3 (0.1-1.0); Monocytes % 4.4 % (1.7-9.3); Neutrophils # 7.9 K/mm3 (1.8-7.8); Neutrophils % 73.5 % (37.0-80.0); Platelet Count 263 K/mm3 (142-424); Red Blood Count 5.08 M/mm3 (4.20-5.40); Red Cell Distribution Width 16.5 % (11.5-17.5); White Blood Count 10.7 K/mm3 (4.8-10.8)
[2021-12-09 06:55] LABS: Anion Gap 14.3 mEq/L (5-15); Blood Urea Nitrogen 28 mg/dl (7-17); Calcium 8.9 mg/dl (8.4-10.2); Carbon Dioxide 21 mmol/L (22.0-30.0); Chloride 104 mmol/L (98-107); Creatinine Clearance Estimated 60 mL/min (50-200); Estimated Glomerular Filt Rate 54 ml/min (>60); GFR (African American) 66 ML/MIN (>60); Glucose 111 mg/dl (74-100); Potassium 5.3 mmoL/L (3.5-5.1); Sodium 134 mmol/L (136-145)
--- NOTE | 2021-12-09 10:10 | HMH.ACPN2 ---
Internal Medicine - PN: Subj *Date: 12/09/21 *Time: 10:10 Interval history: She remains in atrial fibrillation but is comfortable at this time. She inadvertently received 30 mEq total of potassium last evening due to to duplicate orders between [facility] and cardiology. This morning her potassium was 5.3. Potassium will be discontinued, she will not receive a dose this morning. Her lungs are clear this morning heart rate is around 110. Exam Vital signs and Labs for Last 24 Hours: Temp Pulse Resp BP Pulse Ox 98.0 F 92 H 15 139/74 95 12/09/21 06:00 12/09/21 06:00 12/09/21 06:00 12/09/21 06:00 12/09/21 06:00 Laboratory Results - last 24 hr 12/08/21 16:00: SARS-CoV-2 (PCR) Not detected, Influenza A Untype (PCR) Not detected, Influenza Type B (PCR) Not detected 12/08/21 16:15: WBC 11.2 H, RBC 5.50 H, Hgb 15.5, Hct 49.1 H, MCV 89.2, MCH 28.2, MCHC 31.6 L, RDW 16.1, Plt Count 317, MPV 8.9, Neut % (Auto) 71.9, Lymph % (Auto) 21.5, [place] % (Auto) 3.6, Eos % (Auto) 0.5, Baso % (Auto) 2.5 H, Neut # (Auto) 8.1 H, Lymph # (Auto) 2.4, [place] # (Auto) 0.4, Eos # (Auto) 0.1, Baso # (Auto) 0.3 H 12/08/21 16:15: Sodium 133 L, Potassium 3.3 L, Chloride 99, Carbon Dioxide 26, Anion Gap 11.3, BUN 29 H, Creatinine 1.10 H, Estimated Creat Clear 53, Estimated GFR 49 L, Est GFR ( Amer) 59, Glucose 71 L, Calcium 8.9, Total Bilirubin 0.7, AST 44 H, ALT 48, Alkaline Phosphatase 87, Total Protein 6.9, Albumin 3.8, Globulin 3.1, Albumin/Globulin Ratio 1.2 12/08/21 16:15: Lactate 0.7 12/08/21 16:15: Magnesium 1.5 L 12/08/21 16:15: TSH 5.16 H, Free T4 Index 4.8 L, Thyroxine (T4) 12.2 H, T3 Uptake 39 12/08/21 19:11: Urine Color Yellow, Urine Appearance Cloudy, Urine pH 7.0, Ur Specific [place] 1.015, Urine Protein 2+, Urine Glucose (UA) Negative, Urine Ketones Trace, Urine Blood Negative, Urine Nitrate Negative, Urine Bilirubin Negative, Urine Urobilinogen 0.2, Ur Leukocyte Esterase 2+ A, Urine WBC 20-50, Ur Squamous Epith Cells 10-20 12/08/21 20:30: POC Glucose 209 H 12/09/21 06:25: WBC 10.7, RBC 5.08, Hgb 14.6, Hct 45.3, MCV 89.2, MCH 28.6, MCHC 32.1, RDW 16.5, Plt Count 263, MPV 9.7, Neut % (Auto) 73.5, Lymph % (Auto) 19.4, [place] % (Auto) 4.4, Eos % (Auto) 1.4, Baso % (Auto) 1.3, Neut # (Auto) 7.9 H, Lymph # (Auto) 2.1, [place] # (Auto) 0.5, Eos # (Auto) 0.2, Baso # (Auto) 0.1 12/09/21 06:25: Sodium 134 L, Potassium 5.3 H D, Chloride 104, Carbon Dioxide 21 L, Anion Gap 14.3, BUN 28 H, Creatinine 1.00, Estimated Creat Clear 60, Estimated GFR 54 L, Est GFR ( Amer) 66, Glucose 111 H D, Calcium 8.9 I & O for Last 24 hours: Intake & Output 12/06/21 12/07/21 12/08/21 12/09/21 11:59 11:59 11:59 11:59 Intake Total 1305 / 1305 Output Total 750 / 750 Balance 555 / 555 Weight 170 lb 6.4 oz - *Routine HEENT Exam Head: Present: normocephalic Eye: Present: EOMI, PERRL ENT: Present: mucous membranes moist - *Routine Neck Exam Present: supple. Absent: lymphadenopathy - *Routine Respiratory Exam Present: CTA bilaterally - *Routine Cardiovascular Exam Present: irregular rhythm. Absent: RRR - *Routine Abdominal Exam Present: soft, normoactive bowel sounds. Absent: tenderness - *Routine Extremities Exam Absent: cyanosis, clubbing, edema - *Routine Skin Exam Present: warm. Absent: intact (Intertrigo being treated), rash - *Routine Neurological Exam Present: alert, oriented X3 Assessment and Plan (1) Atrial fibrillation with rapid ventricular response Status: Acute Category: Medical Code(s): I48.91 - Unspecified atrial fibrillation (2) Urinary tract infection Status: Acute Category: Medical Code(s): N39.0 - Urinary tract infection, site not specified (3) skilled nursing current use of anticoagulant Status: Chronic Category: Medical Code(s): Z79.01 - skilled nursing (current) use of anticoagulants (4) Hypertensive cardiovascular disease Status: Chronic Qualifiers: Heart failure presence: unspecified wheth
[2021-12-09 11:58] LABS: POC Glucose,Bedside 97 (70-110)
[2021-12-09 12:17] LABS: POC Glucose,Bedside 127 (70-110)
[2021-12-09 20:09] LABS: POC Glucose,Bedside 158 (70-110)
[2021-12-09 21:01] LABS: POC Glucose,Bedside 119 (70-110)
[2021-12-10] VITALS (10 sets, daily range): BP systolic 93–141; BP diastolic 63–95; PULSE 83–110; RESP 14–26; TEMP 36.3–37; O2SAT 92–100; BMI 28.9
[2021-12-10 06:04] LABS: POC Glucose,Bedside 113 (70-110)
[2021-12-10 09:35] LABS: Chloride 100 mmol/L (98-107); Potassium 4.2 mmoL/L (3.5-5.1); Sodium 136 mmol/L (136-145)
[2021-12-10 09:38] LABS: Anion Gap 11.2 mEq/L (5-15); Blood Urea Nitrogen 28 mg/dl (7-17); Carbon Dioxide 29 mmol/L (22.0-30.0); Creatinine Clearance Estimated 50 mL/min (50-200); Estimated Glomerular Filt Rate 44 ml/min (>60); GFR (African American) 53 ML/MIN (>60)
[2021-12-10 09:39] LABS: Calcium 8.3 mg/dl (8.4-10.2); Glucose 126 mg/dl (74-100)
[2021-12-10 11:30] LABS: POC Glucose,Bedside 156 (70-110)
--- NOTE | 2021-12-10 12:31 | HMH.ACPN2 ---
Internal Medicine - PN: Subj *Date: 12/10/21 *Time: 12:31 Interval history: Remains in controlled A-fib, rate around 100. Comfortable, no distress. Exam Vital signs and Labs for Last 24 Hours: Temp Pulse Resp BP Pulse Ox 97.9 F 87 14 141/79 H 97 12/10/21 12:00 12/10/21 12:00 12/10/21 12:00 12/10/21 12:00 12/10/21 12:00 Laboratory Results - last 24 hr 12/09/21 16:30: POC Glucose 119 H 12/09/21 19:53: POC Glucose 158 H 12/10/21 05:53: POC Glucose 113 H 12/10/21 06:21: Sodium 136, Potassium 4.2 D, Chloride 100, Carbon Dioxide 29, Anion Gap 11.2, BUN 28 H, Creatinine 1.20 H, Estimated Creat Clear 50, Estimated GFR 44 L, Est GFR ( Amer) 53 L, Glucose 126 H, Calcium 8.3 L 12/10/21 11:15: POC Glucose 156 H I & O for Last 24 hours: Intake & Output 12/08/21 12/09/21 12/10/21 12/11/21 11:59 11:59 11:59 11:59 Intake Total 1545 / 1545 1524 / 1524 Output Total 1750 / 1750 1550 / 1550 Balance -205 / -205 - / - Weight 170 lb 6.4 oz 169 lb 8 oz Microbiology Reports for the Last 24 Hours: Microbiology 12/08/21 19:11 Urine,Clean Catch Urine Culture - Preliminary - Constitutional no acute distress - *Routine HEENT Exam Head: Present: normocephalic Eye: Present: EOMI, PERRL ENT: Present: mucous membranes moist - *Routine Neck Exam Present: supple. Absent: JVD, lymphadenopathy - *Routine Respiratory Exam Present: CTA bilaterally - *Routine Cardiovascular Exam Present: irregular rhythm - *Routine Abdominal Exam Present: soft, normoactive bowel sounds. Absent: tenderness - *Routine Extremities Exam Absent: cyanosis, clubbing, edema (support stockings) - *Routine Skin Exam Present: warm. Absent: rash - *Routine Neurological Exam Present: alert, oriented X3. Absent: altered mental status Assessment and Plan (1) Atrial fibrillation with rapid ventricular response Status: Acute Category: Medical Code(s): I48.91 - Unspecified atrial fibrillation (2) Urinary tract infection Status: Acute Category: Medical Code(s): N39.0 - Urinary tract infection, site not specified (3) long term care administrator current use of anticoagulant Status: Chronic Category: Medical Code(s): Z79.01 - long term care administrator (current) use of anticoagulants (4) Hypertensive cardiovascular disease Status: Chronic Qualifiers: Heart failure presence: unspecified whether heart failure present Qualified Code(s): I11.9 - Hypertensive heart disease without heart failure Category: Medical Code(s): I11.9 - Hypertensive heart disease without heart failure (5) Hypothyroidism (acquired) Status: Chronic Category: Medical Code(s): E03.9 - Hypothyroidism, unspecified (6) Mixed hyperlipidemia Status: Chronic Category: Medical Code(s): E78.2 - Mixed hyperlipidemia (7) Type 2 diabetes mellitus Status: Chronic Qualifiers: Diabetes mellitus director long term care insulin use: without intermediate use Diabetes mellitus complication status: with other specified complication Qualified Code(s): E11.69 - Type 2 diabetes mellitus with other specified complication Category: Medical Code(s): E11.9 - Type 2 diabetes mellitus without complications - Assessment and plan all Dx Assessment and Plan for all problems:: Discussed possible placement with patient and today. She would benefit from scheduled, monitored dosing of medications which has been problematic. Also discussed possibility of ablation. Care mgmt consult.
--- NOTE | 2021-12-10 16:04 | PC.NURSE ---
Courtesy round done Ice water given trash taken out pt sleeping
--- NOTE | 2021-12-10 16:13 | PC.NURSE ---
has called to report that he and family do NOT want pt going to [facility] for rehab services. He explains that he would request for pt to be transferred to [facility] to find the root cause of pt's problem. He asked that I place a note on pt's chart. Will update nightshift RN so that PCP is aware during AM rounds.
[2021-12-10 21:25] LABS: POC Glucose,Bedside 109 (70-110)
[2021-12-10 22:41] LABS: POC Glucose,Bedside 139 (70-110)
[2021-12-11] VITALS (7 sets, daily range): BP systolic 99–143; BP diastolic 59–75; PULSE 60–114; RESP 16–19; TEMP 36.5–37.1; O2SAT 94–100; BMI 28.9; BMI 29.9
[2021-12-11 05:58] LABS: POC Glucose,Bedside 102 (70-110)
[2021-12-11 06:14] LABS: Anion Gap 8.1 mEq/L (5-15); Blood Urea Nitrogen 31 mg/dl (7-17); Calcium 8.7 mg/dl (8.4-10.2); Carbon Dioxide 31 mmol/L (22.0-30.0); Chloride 98 mmol/L (98-107); Creatinine Clearance Estimated 54 mL/min (50-200); Estimated Glomerular Filt Rate 49 ml/min (>60); GFR (African American) 59 ML/MIN (>60); Glucose 113 mg/dl (74-100); Potassium 4.1 mmoL/L (3.5-5.1); Sodium 133 mmol/L (136-145)
--- NOTE | 2021-12-11 08:17 | HMH.ACPN2 ---
Internal Medicine - PN: Subj *Date: 12/11/21 *Time: 08:22 Interval history: Patient states she feels fine. She denies chest pain and shortness of breath. She cannot tell that she has an irregular rhythm. She ate without problems this morning. She feels her rash has resolved. She does have discomfort around her buttock area. has told nursing staff that he does not want her to go to a assisted facility. Exam Vital signs and Labs for Last 24 Hours: Temp Pulse Resp BP Pulse Ox 97.9 F 89 18 99/75 L 99 12/11/21 04:00 12/11/21 04:00 12/11/21 04:00 12/11/21 04:00 12/11/21 04:00 Laboratory Results - last 24 hr 12/10/21 06:21: Sodium 136, Potassium 4.2 D, Chloride 100, Carbon Dioxide 29, Anion Gap 11.2, BUN 28 H, Creatinine 1.20 H, Estimated Creat Clear 50, Estimated GFR 44 L, Est GFR ( Amer) 53 L, Glucose 126 H, Calcium 8.3 L 12/10/21 11:15: POC Glucose 156 H 12/10/21 16:35: POC Glucose 109 12/10/21 20:12: POC Glucose 139 H 12/11/21 05:28: Sodium 133 L, Potassium 4.1, Chloride 98, Carbon Dioxide 31 H, Anion Gap 8.1, BUN 31 H, Creatinine 1.10 H, Estimated Creat Clear 54, Estimated GFR 49 L, Est GFR ( Amer) 59, Glucose 113 H, Calcium 8.7 12/11/21 05:35: POC Glucose 102 I & O for Last 24 hours: Intake & Output 12/08/21 12/09/21 12/10/21 12/11/21 11:59 11:59 11:59 11:59 Intake Total 1545 / 1545 1884 / 1884 650 / 650 Output Total 1750 / 1750 1550 / 1550 2225 / 2225 Balance -205 / -205 334 / 334 -1575 / -1575 Weight 170 lb 6.4 oz 169 lb 8 oz 169 lb 4.8 oz Microbiology Reports for the Last 24 Hours: Microbiology 12/08/21 16:15 Blood Blood Culture - Preliminary NO GROWTH AFTER 48 HOURS 12/08/21 16:15 Blood Blood Culture - Preliminary NO GROWTH AFTER 48 HOURS 12/08/21 19:11 Urine,Clean Catch Urine Culture - Preliminary - Constitutional no acute distress - *Routine Respiratory Exam Present: crackles (Left basilar) - *Routine Cardiovascular Exam Present: irregular rhythm (Monitor showing atrial fib with a varying ventricular response in the 90s to 110) - *Routine Abdominal Exam Present: soft, normoactive bowel sounds. Absent: tenderness - *Routine Extremities Exam Absent: edema, calf tenderness - *Routine Skin Exam Comments: Area beneath breast with slight erythema.. Is dry and nontender. Skin around buttocks this intact without erythema or rash. - *Routine Neurological Exam Present: alert, oriented X3 Assessment and Plan (1) Atrial fibrillation with rapid ventricular response Status: Acute Category: Medical Code(s): I48.91 - Unspecified atrial fibrillation (2) Urinary tract infection Status: Acute Category: Medical Code(s): N39.0 - Urinary tract infection, site not specified (3) detention current use of anticoagulant Status: Chronic Category: Medical Code(s): Z79.01 - buttermaker continuous churn (current) use of anticoagulants (4) Hypertensive cardiovascular disease Status: Chronic Qualifiers: Heart failure presence: unspecified whether heart failure present Qualified Code(s): I11.9 - Hypertensive heart disease without heart failure Category: Medical Code(s): I11.9 - Hypertensive heart disease without heart failure (5) Hypothyroidism (acquired) Status: Chronic Category: Medical Code(s): E03.9 - Hypothyroidism, unspecified (6) Mixed hyperlipidemia Status: Chronic Category: Medical Code(s): E78.2 - Mixed hyperlipidemia (7) Type 2 diabetes mellitus Status: Chronic Qualifiers: Diabetes mellitus intermediate insulin use: without intermediate use Diabetes mellitus complication status: with other specified complication Qualified Code(s): E11.69 - Type 2 diabetes mellitus with other specified complication Category: Medical Code(s): E11.9 - Type 2 diabetes mellitus without complications (8) Candidiasis of breast Status: Acute Category:
--- NOTE | 2021-12-11 09:42 | HMH.ACPN ---
Internal Medicine - PN: Subj *Date: 12/11/21 *Time: 09:42 Exam Vital signs and Labs for Last 24 Hours: Temp Pulse Resp BP Pulse Ox 97.9 F 95 H 16 125/72 100 12/11/21 04:00 12/11/21 08:00 12/11/21 08:00 12/11/21 08:00 12/11/21 08:00 Laboratory Results - last 24 hr 12/10/21 06:21: Sodium 136, Potassium 4.2 D, Chloride 100, Carbon Dioxide 29, Anion Gap 11.2, BUN 28 H, Creatinine 1.20 H, Estimated Creat Clear 50, Estimated GFR 44 L, Est GFR ( Amer) 53 L, Glucose 126 H, Calcium 8.3 L 12/10/21 11:15: POC Glucose 156 H 12/10/21 16:35: POC Glucose 109 12/10/21 20:12: POC Glucose 139 H 12/11/21 05:28: Sodium 133 L, Potassium 4.1, Chloride 98, Carbon Dioxide 31 H, Anion Gap 8.1, BUN 31 H, Creatinine 1.10 H, Estimated Creat Clear 54, Estimated GFR 49 L, Est GFR ( Amer) 59, Glucose 113 H, Calcium 8.7 12/11/21 05:35: POC Glucose 102 I & O for Last 24 hours: Intake & Output 12/08/21 12/09/21 12/10/21 12/11/21 23:59 23:59 23:59 23:59 Intake Total 240 / 240 2829 / 2829 1010 / 1010 Output Total 100 / 100 3200 / 3200 1999 / 2224 225 / 225 Balance 140 / 140 -371 / -371 -990 / -1215 -225 / -225 Weight 75.41 kg 77.292 kg 76.884 kg 76.793 kg Microbiology Reports for the Last 24 Hours: Microbiology 12/08/21 16:15 Blood Blood Culture - Preliminary NO GROWTH AFTER 48 HOURS 12/08/21 16:15 Blood Blood Culture - Preliminary NO GROWTH AFTER 48 HOURS 12/08/21 19:11 Urine,Clean Catch Urine Culture - Preliminary Assessment and Plan (1) Atrial fibrillation with rapid ventricular response Status: Acute Category: Medical Code(s): I48.91 - Unspecified atrial fibrillation (2) Urinary tract infection Status: Acute Category: Medical Code(s): N39.0 - Urinary tract infection, site not specified (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 Category: Medical Code(s): Z79.01 - termite control servicer (current) use of anticoagulants (4) Hypertensive cardiovascular disease Status: Chronic Qualifiers: Heart failure presence: unspecified whether heart failure present Qualified Code(s): I11.9 - Hypertensive heart disease without heart failure Category: Medical Code(s): I11.9 - Hypertensive heart disease without heart failure (5) Hypothyroidism (acquired) Status: Chronic Category: Medical Code(s): E03.9 - Hypothyroidism, unspecified (6) Mixed hyperlipidemia Status: Chronic Category: Medical Code(s): E78.2 - Mixed hyperlipidemia (7) Type 2 diabetes mellitus Status: Chronic Qualifiers: Diabetes mellitus shelter insulin use: without intermodal 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
--- NOTE | 2021-12-11 10:28 | HMH.PNCARD ---
Subjective Date: 12/11/21 Time: 10:00 Principal diagnosis: A. fib with RVR, UTI Interval history: The patient was admitted to the hospital and found to have a UTI and was back in atrial fibrillation with RVR. The patient remains in atrial fibrillation today. Her rate is under better control. However she is slightly tachycardic at time with heart rate in the lower 100s. She denies any chest pain or pressure this morning. She denies any shortness of breath or edema. She denies any racing of the heart. She denies any fever, chills, nausea, vomiting, diarrhea, PND or orthopnea. Exam Vital signs and Labs for Last 24 Hours: Temp Pulse Resp BP Pulse Ox 98.1 F 93 H 16 110/59 L 97 12/11/21 09:00 12/11/21 09:00 12/11/21 09:00 12/11/21 09:00 12/11/21 09:00 Laboratory Results - last 24 hr 12/10/21 11:15: POC Glucose 156 H 12/10/21 16:35: POC Glucose 109 12/10/21 20:12: POC Glucose 139 H 12/11/21 05:28: Sodium 133 L, Potassium 4.1, Chloride 98, Carbon Dioxide 31 H, Anion Gap 8.1, BUN 31 H, Creatinine 1.10 H, Estimated Creat Clear 54, Estimated GFR 49 L, Est GFR ( Amer) 59, Glucose 113 H, Calcium 8.7 12/11/21 05:35: POC Glucose 102 I & O for Last 24 hours: Intake & Output 12/08/21 12/09/21 12/10/21 12/11/21 23:59 23:59 23:59 23:59 Intake Total 240 / 240 2829 / 2829 1010 / 1010 360 / 360 Output Total 100 / 100 3200 / 3200 2000 / 2225 225 / 225 Balance 140 / 140 -371 / -371 -990 / -1215 135 / 135 Weight 166 lb 4 oz 170 lb 6.4 oz 169 lb 8 oz 169 lb 4.8 oz Microbiology Reports for the Last 24 Hours: Microbiology 12/08/21 16:15 Blood Blood Culture - Preliminary NO GROWTH AFTER 48 HOURS 12/08/21 16:15 Blood Blood Culture - Preliminary NO GROWTH AFTER 48 HOURS 12/08/21 19:11 Urine,Clean Catch Urine Culture - Preliminary - Constitutional no acute distress, average body habitus, agitated - *Routine HEENT Exam Head: Present: normocephalic, atraumatic Eye: Present: EOMI, PERRL ENT: Present: mucous membranes moist - *Routine Neck Exam Present: supple, full ROM, normal carotid upstroke. Absent: JVD, carotid bruit, lymphadenopathy - *Routine Respiratory Exam Present: CTA bilaterally - *Routine Cardiovascular Exam Present: Normal S1, Normal S2, murmur, tachycardia, irregularly irregular - *Routine Abdominal Exam Present: soft, normoactive bowel sounds. Absent: tenderness, distended - *Routine Extremities Exam Present: full ROM, pulses intact, normal capillary refill. Absent: cyanosis, clubbing, edema - *Routine Skin Exam Present: intact, warm. Absent: erythema, rash - *Routine Neurological Exam Present: alert, oriented X3, CN II-XII intact. Absent: sensory deficit, motor deficit Progress Note: A&P (1) Atrial fibrillation with rapid ventricular response Status: Acute (2) Urinary tract infection Status: Acute (3) [facility] current use of anticoagulant Status: Chronic (4) Hypertensive cardiovascular disease Status: Chronic (5) Hypothyroidism (acquired) Status: Chronic (6) Mixed hyperlipidemia Status: Chronic (7) Type 2 diabetes mellitus Status: Chronic (8) Candidiasis of breast Status: Acute Assessment and Plan for All Diagnoses:: Plan: 1. The patient was admitted to the hospital and found to have a UTI. She has been treated for this by her primary care provider. Will defer. 2. The patient was also found to be in atrial fibrillation with RVR. She has been treated with amiodarone and diltiazem as well as metoprolol. The patient remains in atrial fibrillation today on oral amiodarone, diltiazem and metoprolol. Her heart rate was anywhere from the 90s to the low 100s. We will increase her diltiazem CD to 240 mg p.o. daily. 3. Stop amiodarone. The patient has historically been noncompliant and not taking this medication due to the side effects. We still do feel like there is some und
--- NOTE | 2021-12-11 11:27 | SW/DCPLANNER ---
I spoke with this patient and her this AM regarding plans once medically stable for discharge. I discussed placement vs home health services. Patient stated that she intends on returning home at time of discharge. stated that he felt as if he could care for patient at home. Patient has used [facility] of [place] home health services in the past. I did explain that [facility] does not currently services this area. I informed patient of different home health agencies in area: [facility], [facility] or [facility]: patient did not have a preference at this time. I will set patient up with home health agency that can start the soonest at time of discharge. Discharge date is unknown at this time.
[2021-12-11 12:15] LABS: POC Glucose,Bedside 105 (70-110)
[2021-12-11 16:48] LABS: POC Glucose,Bedside 126 (70-110)
--- NOTE | 2021-12-11 17:28 | PC.NURSE ---
No acute changes noted this shift, remains in controlled afib per telemetry, denies any cp or soa, patients at bedside, on RA, alert to person and place, no s/s of distress noted, will continue to monitor for changes.
--- NOTE | 2021-12-11 18:28 | HMH.ACPN2 ---
Internal Medicine - PN: Subj *Date: 12/11/21 *Time: 18:28 Interval history: The note from cardiology is read and it's completeness is appreciated. I understand the concern about the accurate at-home dosing of Amiodarone. It is unfortunate geoff the patient and her are reluctant to agree to placement in a facility where accurate dosing could be maintained. Thus the recommendation on the increase in Diltiazem and discontinuation of Amiodarone. My office communicated with Dr. Wadsworth's cardiology office in [place] and sent copies of the patient's records for evaluation for possible ablation treatment. I hoped to establish an appointment time, but this has not yet been accomplished. We shall observe her tonight regarding medication changes and hope to discharge to home tomorrow with prompt follow-up in [facility]. Exam Vital signs and Labs for Last 24 Hours: Temp Pulse Resp BP Pulse Ox 98.1 F 75 19 118/69 96 12/11/21 16:00 12/11/21 16:00 12/11/21 16:00 12/11/21 16:00 12/11/21 16:00 Laboratory Results - last 24 hr 12/08/21 19:11: Urine Color Yellow, Urine Appearance Cloudy, Urine pH 7.0, Ur Specific [place] 1.015, Urine Protein 2+, Urine Glucose (UA) Negative, Urine Ketones Trace, Urine Blood Negative, Urine Nitrate Negative, Urine Bilirubin Negative, Urine Urobilinogen 0.2, Ur Leukocyte Esterase 2+ A, Urine WBC 20-50, Ur Squamous Epith Cells 10-20 12/10/21 16:35: POC Glucose 109 12/10/21 20:12: POC Glucose 139 H 12/11/21 05:28: Sodium 133 L, Potassium 4.1, Chloride 98, Carbon Dioxide 31 H, Anion Gap 8.1, BUN 31 H, Creatinine 1.10 H, Estimated Creat Clear 54, Estimated GFR 49 L, Est GFR ( Amer) 59, Glucose 113 H, Calcium 8.7 12/11/21 05:35: POC Glucose 102 12/11/21 12:06: POC Glucose 105 12/11/21 16:33: POC Glucose 126 H I & O for Last 24 hours: Intake & Output 12/09/21 12/10/21 12/11/21 12/12/21 11:59 11:59 11:59 11:59 Intake Total 1545 / 1545 1884 / 1884 1010 / 1010 340 / 340 Output Total 1750 / 1750 1550 / 1550 2225 / 2225 Balance -205 / -205 334 / 334 -1215 / -1215 340 / 340 Weight 170 lb 6.4 oz 169 lb 8 oz 169 lb 4.8 oz 169 lb 5.04 oz Microbiology Reports for the Last 24 Hours: Microbiology 12/08/21 19:11 Urine,Clean Catch Urine Culture - Preliminary Gram Positive Cocci 12/08/21 16:15 Blood Blood Culture - Preliminary NO GROWTH AFTER 48 HOURS 12/08/21 16:15 Blood Blood Culture - Preliminary NO GROWTH AFTER 48 HOURS - Constitutional no acute distress - *Routine HEENT Exam Head: Present: normocephalic Eye: Present: EOMI, PERRL ENT: Present: mucous membranes moist - *Routine Neck Exam Present: supple. Absent: lymphadenopathy - *Routine Respiratory Exam Present: CTA bilaterally - *Routine Cardiovascular Exam Present: irregular rhythm (100) - *Routine Abdominal Exam Present: soft, normoactive bowel sounds. Absent: tenderness - *Routine Extremities Exam Absent: cyanosis, clubbing, edema - *Routine Skin Exam Present: warm - *Routine Neurological Exam Present: alert, oriented X3 Assessment and Plan (1) Atrial fibrillation with rapid ventricular response Status: Acute Category: Medical Code(s): I48.91 - Unspecified atrial fibrillation (2) Urinary tract infection Status: Acute Category: Medical Code(s): N39.0 - Urinary tract infection, site not specified (3) longterm current use of anticoagulant Status: Chronic Category: Medical Code(s): Z79.01 - longterm (current) use of anticoagulants (4) Hypertensive cardiovascular disease Status: Chronic Qualifiers: Heart failure presence: unspecified whether heart failure present Qualified Code(s): I11.9 - Hypertensive heart disease without heart failure Category: Medical Code(s): I11.9 - Hypertensive heart disease without heart failure (5) Hypothyroidism (acquired) Statu
[2021-12-11 22:15] LABS: POC Glucose,Bedside 115 (70-110)
[2021-12-11 23:58] LABS: Microscopic, Urine URINE MICROSCOPIC (MICROSCOPIC)
[2021-12-12] VITALS: BP 104/76; PULSE 80; PULSE 96; RESP 16; TEMP 36.7; O2SAT 96
[2021-12-12 00:29] LABS: Appearance,Urine CLEAR (Clear); Bilirubin,Urine Negative (Negative); Blood, Urine Negative (Negative); Color,Urine YELLOW (Yellow); Glucose,Urine (UA) Negative (Negative); Ketones,Urine Negative (Negative); Leukocyte Esterase,Urine Negative (Negative); Nitrate,Urine Negative (Negative); Protein,Urine Negative (Negative); Urobilinogen,Urine 0.2 EU/dl (0.2)
[2021-12-12 00:36] LABS: WBC,Urine Occasional #/hpf (0-3)
[2021-12-12 00:37] LABS: Bacteria,Urine Trace /lpf; RBC,Urine Occasional #/hpf (0-3)
[2021-12-12 04:00] VITALS: BP 125/78; PULSE 79; PULSE 80; RESP 17; TEMP 36.7; O2SAT 99
--- NOTE | 2021-12-12 04:21 | PC.NURSE ---
No acute changes noted this shift. Pt has remained controlled afib on telemetry. has denied any discomfort. VS have remained stable. Pt has ambulated to bathroom with stand by assist. Medications administered per nov. No other concerns. Will continue to monitor.
[2021-12-12 05:00] VITALS: BMI 29.7
[2021-12-12 06:43] LABS: POC Glucose,Bedside 99 (70-110)
[2021-12-12 08:00] VITALS: BP 139/58; PULSE 74; RESP 16; TEMP 36.6; O2SAT 96; O2SAT 98
--- NOTE | 2021-12-12 08:12 | HMH.ACPN2 ---
Internal Medicine - PN: Subj *Date: 12/12/21 *Time: 08:12 Interval history: Patient states she is going home today regardless. She had a good day yesterday. She walked in the hallways. She is eating without difficulty. She states she is never short of breath and never has chest pain. She remains in atrial fib. Urine is growing a gram-positive cocci with a colony count 40-50,000. Exam Vital signs and Labs for Last 24 Hours: Temp Pulse Resp BP Pulse Ox 97.9 F 74 16 139/58 L 96 12/12/21 08:00 12/12/21 08:00 12/12/21 08:00 12/12/21 08:00 12/12/21 08:00 Laboratory Results - last 24 hr 12/08/21 19:11: Urine Color Yellow, Urine Appearance Cloudy, Urine pH 7.0, Ur Specific [place] 1.015, Urine Protein 2+, Urine Glucose (UA) Negative, Urine Ketones Trace, Urine Blood Negative, Urine Nitrate Negative, Urine Bilirubin Negative, Urine Urobilinogen 0.2, Ur Leukocyte Esterase 2+ A, Urine WBC 20-50, Ur Squamous Epith Cells 10-20 12/11/21 12:06: POC Glucose 105 12/11/21 16:33: POC Glucose 126 H 12/11/21 21:09: POC Glucose 115 H 12/11/21 23:52: Urine Color Yellow, Urine Appearance Clear, Urine pH 6.0, Ur Specific [place] 1.020, Urine Protein Negative, Urine Glucose (UA) Negative, Urine Ketones Negative, Urine Blood Negative, Urine Nitrate Negative, Urine Bilirubin Negative, Urine Urobilinogen 0.2, Ur Leukocyte Esterase Negative, Urine RBC Occasional, Urine WBC Occasional, Ur Squamous Epith Cells 5-10, Urine Bacteria Trace 12/12/21 05:21: POC Glucose 99 I & O for Last 24 hours: Intake & Output 12/09/21 12/10/21 12/11/21 12/12/21 11:59 11:59 11:59 11:59 Intake Total 1545 / 1545 1884 / 1884 1010 / 1010 820 / 820 Output Total 1750 / 1750 1550 / 1550 2225 / 2225 425 / 425 Balance -205 / -205 334 / 334 -1215 / -1215 395 / 395 Weight 170 lb 6.4 oz 169 lb 8 oz 169 lb 4.8 oz 167 lb 14.4 oz Microbiology Reports for the Last 24 Hours: Microbiology 12/08/21 19:11 Urine,Clean Catch Urine Culture - Preliminary Gram Positive Cocci - Constitutional no acute distress Comments: Sitting up in the bed eating her breakfast. Cheerful. - *Routine Respiratory Exam Present: crackles (Bibasilar) - *Routine Cardiovascular Exam Present: irregular rhythm (Monitor showing atrial fib with varying ventricular response 70 up to 102) - *Routine Abdominal Exam Present: soft, normoactive bowel sounds. Absent: tenderness - *Routine Extremities Exam Absent: edema, calf tenderness - *Routine Neurological Exam Present: alert, oriented X3 Assessment and Plan (1) Atrial fibrillation with rapid ventricular response Status: Acute Category: Medical Code(s): I48.91 - Unspecified atrial fibrillation (2) Urinary tract infection Status: Acute Category: Medical Code(s): N39.0 - Urinary tract infection, site not specified (3) senior living current use of anticoagulant Status: Chronic Category: Medical Code(s): Z79.01 - rn long term care (current) use of anticoagulants (4) Hypertensive cardiovascular disease Status: Chronic Qualifiers: Heart failure presence: unspecified whether heart failure present Qualified Code(s): I11.9 - Hypertensive heart disease without heart failure Category: Medical Code(s): I11.9 - Hypertensive heart disease without heart failure (5) Hypothyroidism (acquired) Status: Chronic Category: Medical Code(s): E03.9 - Hypothyroidism, unspecified (6) Mixed hyperlipidemia Status: Chronic Category: Medical Code(s): E78.2 - Mixed hyperlipidemia (7) Type 2 diabetes mellitus Status: Chronic Qualifiers: Diabetes mellitus terminal supervisor insulin use: without terminal supervisor use Diabetes mellitus complication status: with other specified complication Qualified Code(s): E11.69 - Type 2 diabetes mellitus with other specified complication Category: Medical Code(s): E11.9 - Type 2 diabetes mellitus without complications (8) Intertrigo Status: Ac
--- NOTE | 2021-12-12 09:25 | HMH.PNCARD ---
Subjective Date: 12/12/21 Time: 09:00 Principal diagnosis: A. fib with RVR, UTI Interval history: This is a 76-year-old female who was admitted to the hospital with UTI and found to be back in atrial fibrillation with RVR. Yesterday the patient's amiodarone was stopped due to her noncompliance with medications and concerns about her reliably taking the medicine. This is a medicine with lots of side effects and just not an ideal medication for someone who is noncompliant. Her potassium was increased and she is now rate controlled in atrial fibrillation. She is on midodrine to help support her blood pressure since she was hypotensive before increasing the Cardizem. This morning she states she feels good. She is very eager to get home. She denies any chest pain or pressure this morning. She denies any shortness of breath or edema. She denies any palpitations or racing of the heart. She denies any fever, chills, nausea, vomiting, diarrhea, PND or orthopnea. Exam Vital signs and Labs for Last 24 Hours: Temp Pulse Resp BP Pulse Ox 97.9 F 74 16 139/58 L 98 12/12/21 08:00 12/12/21 08:00 12/12/21 08:00 12/12/21 08:00 12/12/21 08:00 Laboratory Results - last 24 hr 12/08/21 19:11: Urine Color Yellow, Urine Appearance Cloudy, Urine pH 7.0, Ur Specific [place] 1.015, Urine Protein 2+, Urine Glucose (UA) Negative, Urine Ketones Trace, Urine Blood Negative, Urine Nitrate Negative, Urine Bilirubin Negative, Urine Urobilinogen 0.2, Ur Leukocyte Esterase 2+ A, Urine WBC 20-50, Ur Squamous Epith Cells 10-20 12/11/21 12:06: POC Glucose 105 12/11/21 16:33: POC Glucose 126 H 12/11/21 21:09: POC Glucose 115 H 12/11/21 23:52: Urine Color Yellow, Urine Appearance Clear, Urine pH 6.0, Ur Specific [place] 1.020, Urine Protein Negative, Urine Glucose (UA) Negative, Urine Ketones Negative, Urine Blood Negative, Urine Nitrate Negative, Urine Bilirubin Negative, Urine Urobilinogen 0.2, Ur Leukocyte Esterase Negative, Urine RBC Occasional, Urine WBC Occasional, Ur Squamous Epith Cells 5-10, Urine Bacteria Trace 12/12/21 05:21: POC Glucose 99 I & O for Last 24 hours: Intake & Output 12/09/21 12/10/21 12/11/21 12/12/21 23:59 23:59 23:59 23:59 Intake Total 2829 / 2829 1010 / 1010 1180 / 1180 360 / 360 Output Total 3200 / 3200 2000 / 2225 225 / 650 425 / 425 Balance -371 / -371 -990 / -1215 955 / 530 -65 / -65 Weight 170 lb 6.4 oz 169 lb 8 oz 169 lb 5.04 oz 167 lb 14.4 oz Microbiology Reports for the Last 24 Hours: Microbiology 12/08/21 19:11 Urine,Clean Catch Urine Culture - Preliminary Gram Positive Cocci Narrative: Telemetry strip shows atrial fibrillation with a rate in the 70s and 80s. - Constitutional no acute distress, average body habitus - *Routine HEENT Exam Head: Present: normocephalic, atraumatic Eye: Present: EOMI, PERRL ENT: Present: mucous membranes moist - *Routine Neck Exam Present: supple, full ROM, normal carotid upstroke. Absent: JVD, carotid bruit, lymphadenopathy - *Routine Respiratory Exam Present: CTA bilaterally - *Routine Cardiovascular Exam Present: Normal S1, Normal S2, irregularly irregular. Absent: murmur - *Routine Abdominal Exam Present: soft, normoactive bowel sounds. Absent: tenderness, distended - *Routine Extremities Exam Present: full ROM, pulses intact, normal capillary refill. Absent: cyanosis, clubbing, edema - *Routine Skin Exam Present: intact, warm. Absent: erythema, rash - *Routine Neurological Exam Present: alert, oriented X3, CN II-XII intact. 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
--- NOTE | 2021-12-12 10:00 | HMH.PHAINT ---
I spoke with the patient and her today about her medication list (her is the one that is managing her medications). Went over the new medications that were being sent in for her and made sure they knew what the medications were being used for, how to take them, and where to pick them up at. Also went over the medications she was to continue and again made sure to go over the directions and what those were being used for. The medications that were going to be discontinued were also reviewed and I told them that if they have any of those at home to not use them and set them aside from the medications she is taking so they do not get them mixed up. I told them that if they had any questions about the medications before they left to let the nurse know and a pharmacist will come review them again and if they had any questions post discharge to call their home pharmacy or their primary care provider. A copy of the medication list was provided to the patient.
--- NOTE | 2021-12-12 15:38 | CARE MANAGER ---
Patient agreeable for services r/t medication management. [facility] was not in network, but [facility] was able to provide services. Patient will be notified of [facility] via post discharge phone call.
--- NOTE | 2021-12-13 11:33 | CARE MANAGER ---
I spoke with patient's spouse this morning to discuss post discharge status. Mr. Winkler stated that he plans to change physician's so that he can get a second opinion on what's going on with her heart. [facility] has contacted Mr. Winkler, but he has placed it on hold until they get new orders from new physician. He did state that change in physician is nothing that was done at this facility, he just feels like he doesn't understand what is going on with patient's heart and wants to see if a second opinion would give them more information.
--- NOTE | 2021-12-15 15:32 | HMH.DCSUM ---
General - General Admission date:: 12/08/21 Discharge date: 12/12/21 HPI HPI: Ms. Winkler is a 76-year-old female who was just recently [facility] after an admission for atrial fib with rapid ventricular response. This was her second admission for this and she had previously had cardioversion to normal sinus rhythm but had been noncompliant with her medications and went back into A. fib. During this past admission, she was started on amiodarone and metoprolol and converted back to sinus rhythm. She remained in sinus rhythm and was discharged home. She states she followed up with cardiology recently and everything was fine. She was however seen again in the emergency room on 12/01/2021 after a fall at home. Her had complained that she had had some confusion and generalized weakness. Her creatinine was mildly elevated during that visit and there was a concern with some dementia. The ER doctor did a CT of the head with contrast due to her frequent falls and it showed nothing acute. The ER physician advised her to hold her Lasix dose due to mild dehydration and follow-up with her PCP. She and her were offered a neurology referral for dementia but declined. The patient never did follow-up with Dr. Neville after this visit. She presented to the office today with complaints of a rash in the folds of her abdomen. She appeared to be mildly confused and a CBC revealed an elevated white blood cell count and urinalysis showed a possible UTI. She was in atrial fib with a rate in the 120s in the office and cardiology was contacted. She was sent down to their office and was seen by Huber Campbell. An EKG was done showing A. fib with a rate of 121. It was felt the best decision was to admit the patient for IV amiodarone along with IV antibiotics for her UTI. Her expressed concern about taking care of her at home, therefore care management will be consulted for possible placement at discharge. It is also unclear whether or not she has been taking her medications correctly. Hospital Course Hospital Course: The patient was admitted and started on Invanz as well as nystatin for her yeast infection. Cardiology adjusted her cardiac meds and gave her an IV amiodarone loading dose with a continued oral dose of 400 mg daily to help maintain normal sinus rhythm. They wanted her to continue her metoprolol 100 mg twice daily, diltiazem 120 mg daily, Lasix and spironolactone. She and her did express desire to see an EP at [facility] after discharge. She remained in atrial fib but was comfortable. She inadvertently received 30 mEq of potassium due to duplicate orders between Dr. Neville and cardiology and her potassium on 12/09/2021 returned elevated. Her potassium was discontinued. Dr. Neville felt the patient would benefit from skilled placement and scheduled, monitor dosing of her medications which had been problematic. Care management consult was made. Her rash improved and she remained in A. fib with a controlled rate. She and her decided she did not want to go to a rehab facility upon discharge. Her Cardizem dose was increased to 240 mg daily and her amiodarone was stopped. Cardiology felt there was some underlying noncompliance with her medications and this was likely the reason she kept going into atrial fibrillation. They did not feel the amiodarone was a safe medication if she was going to be noncompliant. She was started on midodrine 5 mg 3 times daily for blood pressure support as it has been low. Cardiology did agree to refer her to electrophysiology for a second opinion. Dr. Neville did communicate with Dr. Wadsworth's office in [place] and sent copies of the patient's records for evaluation for possible ablation. By 12/12/2021, the patient stated she was home going home regardless. She had been walking in the hallways and was eating without difficulty. Her urine
== END 2021-12-12 10:18 | disposition home health service (06) | DRG 690 ==
PROVIDERS: Physician Assistant; Admitting Provider Family Medicine; PCP Family Medicine; Visit Provider Family Medicine
DX: N39.0 Urinary tract infection, site not specified (principal); I48.91 Unspecified atrial fibrillation; E11.9 Type 2 diabetes mellitus without complications; Z79.01 Long term (current) use of anticoagulants; Z79.84 Long term (current) use of oral hypoglycemic drugs; I10 Essential (primary) hypertension; E78.2 Mixed hyperlipidemia; K21.9 Gastro-esophageal reflux disease without esophagitis; E03.9 Hypothyroidism, unspecified; B37.2 Candidiasis of skin and nail; L30.4 Erythema intertrigo; Z91.19 Patient's noncompliance with other medical treatment and regimen; Z20.822 Contact with and (suspected) exposure to COVID-19
CPT/HCPCS: 36415; 80048; 80053; 81001; 82962; 83605; 83735; 84436; 84443; 84479; 85025; 87040; 87086; 87088; 87186; 97116; 97163; 97166; C9803; J0282; J1335; J2405; J7060; U0003; U0005

== ENCOUNTER 2021-12-17 19:09 | Emergency (ER) | payer MEDICARE, SELFPAY ==
[2021-12-17 19:11] VITALS: BP 117/64; PULSE 81; RESP 20; TEMP 36.5; O2SAT 100; BMI 29.2
[2021-12-17 19:39] VITALS: BMI 29.2
--- NOTE | 2021-12-17 19:40 | CT_ITS ---
PROCEDURE INFORMATION: Exam: CT Abdomen And Pelvis Without Contrast Exam date and time: 12/17/2021 9:35 PM Age: 76 years old Clinical indication: Constipation; Additional info: Constipation 5 days TECHNIQUE: Imaging protocol: Computed tomography of the abdomen and pelvis without contrast. Radiation optimization: All CT scans at this facility use at least one of these dose optimization techniques: automated exposure control; mA and/or kV adjustment per patient size (includes targeted exams where dose is matched to clinical indication); or iterative reconstruction. COMPARISON: CT HIGH RESOLUTION CHEST 11/08/2021 3:48 PM FINDINGS: Liver: Parenchymal enhancement is not evaluated without contrast. No hepatomegaly. Gallbladder and bile ducts: No calcified stones. No ductal dilation. Pancreas: Parenchymal enhancement is not evaluated without contrast. No ductal dilation. Spleen: Parenchymal enhancement is not evaluated without contrast. No splenomegaly. Adrenal glands: No mass. Kidneys and ureters: Atrophic appearing kidneys. No hydronephrosis. Stomach and bowel: Large stool burden within the colon, particularly the sigmoid colon where there is mild adjacent induration. Diverticulosis coli without evidence for diverticulitis. Appendix: No evidence of appendicitis. Intraperitoneal space: No free air. No significant fluid collection. Vasculature: Calcified atherosclerosis. No aneurysm. Lymph nodes: No enlarged lymph nodes. Urinary bladder: No acute abnormality. Reproductive: No acute abnormality. Bones/joints: Mild scoliosis. No acute fracture. Soft tissues: Limited evaluation without contrast. No significant soft tissue swelling. IMPRESSION: 1. Large stool burden within the colon, particularly the sigmoid colon where there is mild adjacent induration which can be seen with constipation and fecal impaction. Stercoral colitis should be clinically excluded. 2. Diverticulosis coli without evidence for diverticulitis. 3. Other incidental findings described above.
--- NOTE | 2021-12-17 20:43 | HMH.EDNVD ---
ED Disposition Clinical Impression: Constipation Qualifiers: Constipation type: unspecified constipation type Qualified Code(s): K59.00 - Constipation, unspecified Disposition: Home, Self-Care Condition on Discharge: Good Instructions: DI for Constipation Additional Instructions: use meds as directed Referrals: Sanford Olivera [Primary Care Provider] - - Critical Care Critical Care Time: No Attestation: On 12/17/21, the high probability of a clinically significant, sudden or life threatening deterioration of the following system(s) required my full and direct attention, intervention and personal management. The time I documented below is in addition to time spent performing reported procedures but includes the following listed in this critical care notation. Medical Decision Making - Medical Records Medical records reviewed: Yes: I reviewed the patient's medical records. - Frank Inquiry Pt receiving controlled substance: No Vital Signs: 12/17/21 19:11 Temperature 97.7 F Temperature Source Oral Pulse Rate [Right] 81 Respiratory Rate 20 Blood Pressure [Right Arm] 117/64 Blood Pressure Mean [Right Arm] 81 Blood Pressure Source [Right Arm] Automatic Cuff 02 Sat by Pulse Oximetry 100 Oxygen Delivery Method Room Air - Lab Data Lab results reviewed: Yes: I reviewed the patient's lab results. Lab Results 12/17/21 20:47: ESR 26 12/17/21 20:47: C-Reactive Protein 30.8 H, Amylase 71, Procalcitonin 0.129 12/17/21 20:47: WBC 11.4 H, RBC 5.12, Hgb 14.8, Hct 43.5, MCV 85.0, MCH 29.0, MCHC 34.1, RDW 16.7, Plt Count 303, MPV 8.6, Neut % (Auto) 74.4, Lymph % (Auto) 19.7, Boone % (Auto) 3.8, Eos % (Auto) 0.9, Baso % (Auto) 1.1, Neut # (Auto) 8.5 H, Lymph # (Auto) 2.3, Boone # (Auto) 0.4, Eos # (Auto) 0.1, Baso # (Auto) 0.1 12/17/21 20:47: Sodium 133 L, Potassium 4.6, Chloride 97 L, Carbon Dioxide 27, Anion Gap 13.6, BUN 39 H, Creatinine 2.00 H, Estimated Creat Clear 30, Estimated GFR 24 L, Est GFR ( Amer) 29 L, Glucose 98, Calcium 9.5, Total Bilirubin 0.6, AST 34, ALT 46, Alkaline Phosphatase 114, Total Protein 7.7, Albumin 4.2, Globulin 3.5 H, Albumin/Globulin Ratio 1.2, Lipase 184 12/17/21 20:47: TSH 4.37, Thyroxine (T4) 15.9 H Result diagrams: 12/17/21 20:47 12/17/21 20:47 Orders (Tests/Meds): ED MEDICATIONS Discontinued Medications Generic Name Dose Route Start Last Admin Trade Name Freq PRN Reason Stop Dose Admin Sodium Chloride 1,000 mls @ 999 mls/hr 12/17/21 19:45 12/17/21 21:00 Sod Chlor 0.9% 1000ml Bag IV 12/17/21 20:45 999 mls/hr .Q1H1M NILE Administration Sodium Phosphate 133 ml 12/17/21 22:19 12/17/21 23:01 Fleet 133ml Enema RC 12/17/21 22:20 133 ml ONCE ONE Administration ORDERS Category Date Time Status Urinalysis and Microscopic Stat Lab 12/17/21 19:41 Ordered - CT Data CT Scan: Abdomen, Pelvis Time Received: 00:[address] Reviewed: Yes: I have viewed the radiologist's interpretation Preliminary Findings: Abnormal (see report ) Medical Decision Narrative: pt with constipation but no clinical fecal impaction and no sbo Nausea/Vomiting/Diarrhea HPI - General Chief complaint: Nausea/Vomiting/Diarrhea Stated complaint: no bowel movement Time Seen by Provider: 12/17/21 20:43 Mode of Arrival: Wheelchair Source of Information: Patient, Spouse, Medical Record Limitations: No Limitations Description of Symptoms (Recalled from ER Triage Doc. by RN): Pt c/o constipation. States I haven't had a good bm since I left here on Saturday (12/12). has attempted to dissimpact her at home and was able to get some out but worried there is more. Denies any ABD pain, nausea or vomiting. Pt is taking Benafiber and Miralax as prescribed. - History of Present Illness HPI Narrative: pt with constipation with no blood in stool - no vomiting MD complaint: nausea, abdominal pain Onset (ago): day(s) Associated Abdominal Pain: Yes Location of pain: diffus
[2021-12-17 20:54] LABS: Basophils # 0.1 K/mm3 (0-0.2); Basophils % 1.1 % (0.1-2.0); Eosinophils # 0.1 K/mm3 (0.0-0.4); Eosinophils % 0.9 % (0.1-12.0); Hematocrit 43.5 % (37.0-47.0); Hemoglobin 14.8 g/dL (12.2-16.2); Lymphocytes # 2.3 K/mm3 (0.7-4.5); Lymphocytes % 19.7 % (10-50); Mean Corpuscular HGB Conc 34.1 g/dL (31.8-35.4); Mean Platelet Volume 8.6 fl (7.4-10.4); Monocytes # 0.4 K/mm3 (0.1-1.0); Monocytes % 3.8 % (1.7-9.3); Neutrophils # 8.5 K/mm3 (1.8-7.8); Neutrophils % 74.4 % (37.0-80.0); Platelet Count 303 K/mm3 (142-424); Red Blood Count 5.12 M/mm3 (4.20-5.40); Red Cell Distribution Width 16.7 % (11.5-17.5); White Blood Count 11.4 K/mm3 (4.8-10.8)
[2021-12-17 21:04] LABS: Amylase 71 U/L (30-110)
[2021-12-17 21:05] LABS: Alanine Aminotransferase 46 U/L (12-78); Albumin Level 4.2 g/dl (3.5-5.0); Albumin/Globulin Ratio 1.2 (1.1-1.8); Alkaline Phosphatase 114 U/L (38-126); Anion Gap 13.6 mEq/L (5-15); Aspartate Amino Transferase 34 U/L (14-36); Bilirubin,Total 0.6 mg/dl (0.2-1.3); Blood Urea Nitrogen 39 mg/dl (7-17); Calcium 9.5 mg/dl (8.4-10.2); Carbon Dioxide 27 mmol/L (22.0-30.0); Chloride 97 mmol/L (98-107); Creatinine Clearance Estimated 30 mL/min (50-200); Estimated Glomerular Filt Rate 24 ml/min (>60); GFR (African American) 29 ML/MIN (>60); Globulin 3.5 g/dL (1.3-3.2); Glucose 98 mg/dl (74-100); Lipase 184 U/L (23-300); Potassium 4.6 mmoL/L (3.5-5.1); Sodium 133 mmol/L (136-145); Total Protein,Serum 7.7 g/dl (6.3-8.2)
[2021-12-17 21:10] LABS: C-Reactive Protein 30.8 mg/L (0-4)
[2021-12-17 21:20] LABS: Erythrocyte Sedimentation Rate 26 mm/hr (0-30)
[2021-12-17 21:24] LABS: Procalcitonin 0.129 ng/mL (0.0-2.0)
[2021-12-17 21:41] LABS: T4 (Thyroxine) 15.9 ug/dl (5.53-11.0)
[2021-12-17 21:54] LABS: Thyroid Stimulating Hormone 4.37 uIU/mL (0.465-4.68)
--- NOTE | 2021-12-17 23:25 | PC.NURSE ---
Patient had med. soft BM, patient returned to bed from bedside commode with assistance. Patient given warm blankets and states she feels much better
--- NOTE | 2021-12-18 00:08 | PC.NURSE ---
Pt has had 2 BM since the 1st. She has been anxious and had a episode of incontinence. Pt was cleaned up and given a new gown. Pt had a small soft BM with 100ml loose stool.
[2021-12-18 00:19] VITALS: BP 138/78; PULSE 80; RESP 20; TEMP 37.1; O2SAT 99
== END 2021-12-18 00:43 | disposition home or self-care (01) ==
PROVIDERS: Emergency Provider Emergency Medicine; PCP Family Medicine
DX: K59.00 Constipation, unspecified (principal); R11.2 Nausea with vomiting, unspecified; R19.7 Diarrhea, unspecified; I10 Essential (primary) hypertension; E78.5 Hyperlipidemia, unspecified; K21.9 Gastro-esophageal reflux disease without esophagitis; E03.9 Hypothyroidism, unspecified; E11.9 Type 2 diabetes mellitus without complications; M19.90 Unspecified osteoarthritis, unspecified site; Z79.899 Other long term (current) drug therapy
CPT/HCPCS: 74176; 80053; 82150; 83690; 84145; 84436; 84443; 85025; 85651; 86140; 96361; 96365; 96366; 99284

== ENCOUNTER 2022-01-30 13:22 | Observation (INO) | payer MEDICARE, SELFPAY ==
[2022-01-30] VITALS (12 sets, daily range): BP systolic 105–164; BP diastolic 64–98; PULSE 65–112; RESP 16–20; TEMP 36.4–36.9; O2SAT 92–100; BMI 27.3
--- NOTE | 2022-01-30 14:16 | ECG_ITS ---
APPROVED REPORT Exam: Resting ECG HR:73 bpm ECG Measurements Heart Rate 73 AXES QRSd 102 QRS 50 QT 370 T 57 QTc 397 Conclusion ATRIAL FIBRILLATION INDETERMINATE AXIS LOW QRS VOLTAGE IN PRECORDIAL LEADS [QRS DEFLECTION < 1.0 mV IN CHEST LEADS] INCOMPLETE RIGHT BUNDLE BRANCH BLOCK ABNORMAL ECG UNCONFIRMED REPORT Electronically signed by : Eric Maldonado MD 01/30/2022 21:22:06
--- NOTE | 2022-01-30 14:29 | HMH.EDGENADL ---
ED Disposition Clinical Impression: Hyperkalemia, Hypoglycemia Chronic kidney disease Qualifiers: Chronic kidney disease stage: unspecified stage Qualified Code(s): N18.9 - Chronic kidney disease, unspecified UTI (urinary tract infection) Qualifiers: Urinary tract infection type: site unspecified Hematuria presence: without hematuria Qualified Code(s): N39.0 - Urinary tract infection, site not specified Disposition: Admitted as Observation Condition on Discharge: Fair - Critical Care Critical Care Time: Yes Attestation: On 01/30/22, the high probability of a clinically significant, sudden or life threatening deterioration of the following system(s) required my full and direct attention, intervention and personal management. The time I documented below is in addition to time spent performing reported procedures but includes the following listed in this critical care notation. Total Critical Care Time: 30 Vital system(s) involved:: Metabolic Failure My critical care processes included: Assessment & monitoring of V/S, Initial and Re-exams, Data Review/Interpretation, Coordinating Care, Medication Orders and management, Documentation Medical Decision Making - Frank Inquiry Pt receiving controlled substance: No Vital Signs: 01/30/22 13:23 01/30/22 13:34 01/30/22 15:50 Temperature 98.4 F 98.4 F Temperature Source Oral Oral Pulse Rate 87 85 Pulse Rate [Radial] 75 Respiratory Rate 16 20 20 Blood Pressure 111/75 134/76 Blood Pressure [Right Arm] 134/88 Blood Pressure Mean [Right Arm] 103 Blood Pressure Position [Right Arm] Sitting 02 Sat by Pulse Oximetry 98 92 L 95 Oxygen Delivery Method Room Air Room Air - Lab Data Lab Results 01/30/22 14:45: WBC 14.3 H, RBC 4.68, Hgb 14.2, Hct 42.4, MCV 90.5, MCH 30.4, MCHC 33.6, RDW 20.2 H, Plt Count 302, MPV 8.7, Neut % (Auto) 82.2 H, Lymph % (Auto) 11.4, Barnwell % (Auto) 4.4, Eos % (Auto) 1.0, Baso % (Auto) 1.0, Neut # (Auto) 11.8 H, Lymph # (Auto) 1.6, Barn[place] # (Auto) 0.6, Eos # (Auto) 0.2, Baso # (Auto) 0.1 01/30/22 14:45: Sodium 133 L, Potassium 6.7 H*, Chloride 103, Carbon Dioxide 20 L, Anion Gap 16.7 H, BUN 44 H, Creatinine 1.80 H, Estimated Creat Clear 31, Estimated GFR 28 L, Est GFR ( Amer) 33 L, Glucose 61 L, Calcium 10.2, Total Bilirubin 0.3, AST 40 H, ALT 37, Alkaline Phosphatase 58, Total Protein 7.6, Albumin 4.4, Globulin 3.2, Albumin/Globulin Ratio 1.4 01/30/22 14:53: Magnesium 1.9 01/30/22 15:45: Urine Color Yellow, Urine Appearance Clear, Urine pH 5.0, Ur Specific Mcdougal 1.025, Urine Protein Negative, Urine Glucose (UA) Negative, Urine Ketones Trace, Urine Blood Negative, Urine Nitrate Negative, Urine Bilirubin 1+ A, Urine Urobilinogen 0.2, Ur Leukocyte Esterase Trace, Urine RBC 5-10, Urine WBC 10-20, Ur Squamous Epith Cells 3-5, Urine Bacteria 1+ 01/30/22 15:48: SARS-CoV-2 (PCR) Not detected, Influenza A Untype (PCR) Not detected, Influenza Type B (PCR) Not detected 01/30/22 17:10: Lactate 1.0 Result diagrams: 01/30/22 14:45 01/30/22 14:45 Orders (Tests/Meds): ED MEDICATIONS Generic Name Dose Route Start Last Admin Trade Name Freq PRN Reason Stop Dose Admin Ceftriaxone Sodium 1 gm/ 50 mls @ 100 mls/hr 01/30/22 18:15 Sodium Chloride IV 02/13/22 18:14 Q24H NILE Discontinued Medications Generic Name Dose Route Start Last Admin Trade Name Freq PRN Reason Stop Dose Admin Dextrose 50 ml 01/30/22 15:37 01/30/22 17:06 Dextrose 50% 50ml Syringe (Crash Cart) IVP 01/30/22 15:38 50 ml ONCE ONE Administration Insulin Human Regular 5 unit 01/30/22 15:37 01/30/22 17:06 Insulin Human Regular 100 Units/Ml 10ml Vial IVP 01/30/22 15:38 5 unit ONCE ONE Administration Sodium Polystyrene Sulfonate 15 gm 01/30/22 15:36 01/30/22 17:06 Sodium Poly Sulfon 15gm/60ml Oral.Susp PO 01/30/22 15:37 15 gm ONCE ONE Administration ORDERS Category Date Time Status BMP [Basic Metabolic Panel] Timed Lab 01/30/22
--- NOTE | 2022-01-30 14:31 | PC.NURSE ---
difficulty obtaining IV access and blood specimen on pt, two green tops were sent to lab, both specimen were hemolyzed per lab staff. Requested that lab staff come attempt to obtain blood
[2022-01-30 15:00] LABS: Basophils # 0.1 K/mm3 (0-0.2); Eosinophils # 0.2 K/mm3 (0.0-0.4); Hematocrit 42.4 % (37.0-47.0); Hemoglobin 14.2 g/dL (12.2-16.2); Lymphocytes # 1.6 K/mm3 (0.7-4.5); Lymphocytes % 11.4 % (10-50); Mean Corpuscular HGB Conc 33.6 g/dL (31.8-35.4); Mean Corpuscular Hemoglobin 30.4 pg (27.0-31.2); Mean Corpuscular Volume 90.5 fl (81-99); Mean Platelet Volume 8.7 fl (7.4-10.4); Monocytes # 0.6 K/mm3 (0.1-1.0); Monocytes % 4.4 % (1.7-9.3); Neutrophils # 11.8 K/mm3 (1.8-7.8); Neutrophils % 82.2 % (37.0-80.0); Platelet Count 302 K/mm3 (142-424); Red Blood Count 4.68 M/mm3 (4.20-5.40); Red Cell Distribution Width 20.2 % (11.5-17.5); White Blood Count 14.3 K/mm3 (4.8-10.8)
[2022-01-30 15:19] LABS: Alanine Aminotransferase 37 U/L (12-78); Albumin Level 4.4 g/dl (3.5-5.0); Albumin/Globulin Ratio 1.4 (1.1-1.8); Alkaline Phosphatase 58 U/L (38-126); Anion Gap 16.7 mEq/L (5-15); Aspartate Amino Transferase 40 U/L (14-36); Bilirubin,Total 0.3 mg/dl (0.2-1.3); Blood Urea Nitrogen 44 mg/dl (7-17); Calcium 10.2 mg/dl (8.4-10.2); Carbon Dioxide 20 mmol/L (22.0-30.0); Chloride 103 mmol/L (98-107); Creatinine Clearance Estimated 31 mL/min (50-200); Estimated Glomerular Filt Rate 28 ml/min (>60); GFR (African American) 33 ML/MIN (>60); Globulin 3.2 g/dL (1.3-3.2); Glucose 61 mg/dl (74-100); Sodium 133 mmol/L (136-145); Total Protein,Serum 7.6 g/dl (6.3-8.2)
[2022-01-30 15:26] LABS: Potassium 6.7 mmoL/L (3.5-5.1)
--- NOTE | 2022-01-30 15:26 | PC.NURSE ---
MD aware of critical potassium
--- NOTE | 2022-01-30 15:35 | XR_ITS ---
FINAL REPORT CLINICAL HISTORY: shakes and sweating COMPARISON: December 01, 2021 FINDINGS: The heart size is normal. The mediastinum is normal. There is no focal infiltrate or edema. There are no pleural effusions. There is no pneumothorax. There is no osseous abnormality. IMPRESSION: No acute cardiopulmonary process Reviewed, Interpreted and Dictated by Jimmy Miller III, MD Transcribed by Gabriela Iqbal Authenticated by Jimmy Miller III, MD on 01/30/2022 04:46:43 PM [facility]
[2022-01-30 15:47] LABS: Magnesium 1.9 mg/dl (1.6-2.3)
[2022-01-30 15:53] LABS: Microscopic, Urine URINE MICROSCOPIC (MICROSCOPIC)
[2022-01-30 15:55] LABS: Coronavirus 19, PCR Not Detected (NotDetected); Influenza A, PCR Not Detected (NotDetected); Influenza B, PCR Not Detected (NotDetected)
[2022-01-30 16:00] LABS: Appearance,Urine CLEAR (Clear); Blood, Urine Negative (Negative); Color,Urine YELLOW (Yellow); Glucose,Urine (UA) Negative (Negative); Ketones,Urine TRACE (Negative); Leukocyte Esterase,Urine TRACE (Negative); Nitrate,Urine Negative (Negative); Protein,Urine Negative (Negative); Specific Gravity, Urine 1.025 (1.005-1.030); Urobilinogen,Urine 0.2 EU/dl (0.2)
--- NOTE | 2022-01-30 16:36 | PC.NURSE ---
multiple IV sticks that have been unsuccessful. I was able to place a 22g IV in R hand, was not able to draw blood from IV when it was established. contacting lab to come attempt to obtain blood specimens
[2022-01-30 16:43] LABS: Bilirubin,Urine 1+ (Negative)
--- NOTE | 2022-01-30 16:46 | PC.NURSE ---
DEBBIE MORROW speaking with Dr. Herron who is production operator for service pts.
--- NOTE | 2022-01-30 16:54 | PC.NURSE ---
notified melt house supervisor of admission
[2022-01-30 17:28] LABS: Bacteria,Urine 1+ /lpf
--- NOTE | 2022-01-30 17:49 | PC.NURSE ---
REPORT CALLED TO FLOOR
--- NOTE | 2022-01-30 18:38 | PC.NURSE ---
Pt arrived to the floor at this time
[2022-01-30 22:40] LABS: Chloride 102 mmol/L (98-107)
[2022-01-30 22:41] LABS: Potassium 5.2 mmoL/L (3.5-5.1); Sodium 135 mmol/L (136-145)
[2022-01-30 22:43] LABS: Blood Urea Nitrogen 38 mg/dl (7-17); Creatinine Clearance Estimated 33 mL/min (50-200); Estimated Glomerular Filt Rate 29 ml/min (>60); GFR (African American) 36 ML/MIN (>60)
[2022-01-30 22:44] LABS: Anion Gap 15.2 mEq/L (5-15); Calcium 10.2 mg/dl (8.4-10.2); Carbon Dioxide 23 mmol/L (22.0-30.0); Glucose 111 mg/dl (74-100)
[2022-01-31] VITALS: PULSE 80
[2022-01-31 03:34] VITALS: BP 130/73; PULSE 71; RESP 16; TEMP 36.4; O2SAT 98
[2022-01-31 04:00] VITALS: PULSE 90
[2022-01-31 05:00] VITALS: BMI 27.7
[2022-01-31 06:19] LABS: POC Glucose,Bedside 50 (70-110)
--- NOTE | 2022-01-31 06:56 | PC.NURSE ---
Pt up with assistance to the bathroom. Pt. Iv noted to the right hand. Flushed without difficulty. PT called out for assistance as needed. Blood sugar 50. Pt given orange juice. PT was asymptomatic.
[2022-01-31 07:14] LABS: POC Glucose,Bedside 93 (70-110)
[2022-01-31 07:15] LABS: Anion Gap 19.2 mEq/L (5-15); Blood Urea Nitrogen 36 mg/dl (7-17); Calcium 9.8 mg/dl (8.4-10.2); Carbon Dioxide 20 mmol/L (22.0-30.0); Chloride 103 mmol/L (98-107); Creatinine Clearance Estimated 38 mL/min (50-200); Estimated Glomerular Filt Rate 34 ml/min (>60); GFR (African American) 41 ML/MIN (>60); Glucose 53 mg/dl (74-100); Potassium 5.2 mmoL/L (3.5-5.1); Sodium 137 mmol/L (136-145)
--- NOTE | 2022-01-31 07:31 | P.CONPHA_ITS ---
[facility] Pharmacy VTE Monitoring - Patient Demographics Admission date: 01/30/22 Report Date: 01/31/22 Time: 07:32 Allergies/Adverse Reactions: Patient Allergies amiodarone Allergy (Verified 01/30/22 17:45) Height: 1.63 m Weight: 73.652 kg Patient Problems: Current Active Problems Urinary tract infection (Acute) Hyperkalemia (Acute) Hypoglycemia (Acute) Chronic kidney disease (Acute) - VTE Risk Labs: VTE Related Lab Results Hgb 14.2 g/dL (12.2-16.2) 01/30/22 14:45 Hct 42.4 % (37.0-47.0) 01/30/22 14:45 Plt Count 302 K/mm3 (142-424) 01/30/22 14:45 BUN 36 mg/dl (7-17) H 01/31/22 05:49 Creatinine 1.50 mg/dl (0.52-1.04) H 01/31/22 05:49 Estimated Creat Clear 38 mL/min (50-200) 01/31/22 05:49 Was VTE Risk Assessment Performed: Yes VTE Risk Level: Very Low Risk Clinical Trial Participant: No - Prophylaxis VTE Prophylaxis Ordered?: Yes Types of VTE Prophylaxis: TEDS Knee High
--- NOTE | 2022-01-31 07:34 | HMH.PHAINT ---
verified home medication list using list from [facility]
[2022-01-31 08:00] VITALS: BP 134/78; PULSE 101; RESP 18; TEMP 36.7; O2SAT 91
--- NOTE | 2022-01-31 09:56 | HMH.HPDC ---
General - General Admission date:: 01/30/22 Discharge date: 01/31/22 *Admission Date: 01/30/22 *Chief complaint: Hyperkalemia *History of present illness: 76-year-old female patient presented to the emergency department after being called by primary care provider for elevated potassium and instructed to go to emergency department for evaluation. She reports previously taking potassium 10 mEq once daily, but last week was instructed to increase it to twice daily. She denies any chest pain or arrhythmias. Patient does report she has had fever and chills for the last 3 nights. She also reports having an emesis yesterday after having her blood drawn at the doctor's office. Potassium in the emergency department was 6.7 In the emergency department she did receive insulin and D50 IV as well as Kayexalate UA reveals trace leukocytes and she received ceftriaxone in the emergency department EKG reveals atrial fibrillation with right bundle branch block, she is on Xarelto and diltiazem at home BUN 38, creatinine 1.7 emergency department Blood glucose 61 Chest x-ray was negative for any acute findings [facility] History I have reviewed the patient's past medical history: Yes Medical History: Reports:: Arrhythmia, Atrial Fibrillation, Diabetes Mellitus Type 2, Gastroesophageal Reflux Disease(GERD), Hyperlipidemia, Hypertension, Palpitations Denies:: Cancer, Diabetes Mellitus Type 1, MRSA, Seizures, Valvular Heart Disease *Have you ever received a pneumonia vaccine?: Yes *Have you received a flu vaccine this season?: Yes Other Medical History: Reports: Arthritis, Hypothyroidism Other Surgeries: Yes: Appendectomy (Incidental February 1975), Cardiac Catheterization (September 2014 Dr. Lui Mercado [facility]), Cholecystectomy (February 1975), Tubal Ligation (In the ) Amputation: No Fractures: No - *Social History Last grade of school completed: Advanced degree Smoking Status: Never smoker Alcohol Intake: never Substance Use Type: denies use *Occupational Status:: retired Housing: house Household Members: spouse *Travel in the last 8 weeks: None Family Hx:: No significant family history Review of Systems - Review of Systems Review of systems:: pertinent systems reviewed and negative unless documented below - Constitutional Reports excessive sweating, Reports fatigue, Reports fever(s), Denies body ache(s) - Eyes Denies blurry vision, Denies double vision - ENT Denies dizziness, Denies ear pain - *Cardiovascular Denies chest pain, Denies excessive sweating - *Respiratory Denies chest congestion, Denies cough - *Gastrointestinal Denies abdominal pain, Denies change in stools - *Musculoskeletal Denies joint pain, Denies muscle weakness - Integumentary/Breasts Denies hair loss, Denies yellowing of the skin - *Neurologic Denies abnormal speech, Denies confusion - Psychiatric Denies lack of enjoyment, Denies confusion - Endocrine Reports excessive sweating, Reports rapid, pounding, or irregular heartbeat, Denies cold intolerance - Hematologic/Lymphatic Denies easy bleeding, Denies easy bruising - Allergic/Immunologic Denies GI upset with certain foods, Denies wheezing Exam Vital signs and Labs for Last 24 Hours: Temp Pulse Resp BP Pulse Ox 98.1 F 101 H 18 134/78 91 L 01/31/22 08:00 01/31/22 08:00 01/31/22 08:00 01/31/22 08:00 01/31/22 08:00 Laboratory Results - last 24 hr 01/30/22 14:45: WBC 14.3 H, RBC 4.68, Hgb 14.2, Hct 42.4, MCV 90.5, MCH 30.4, MCHC 33.6, RDW 20.2 H, Plt Count 302, MPV 8.7, Neut % (Auto) 82.2 H, Lymph % (Auto) 11.4, Hendricks % (Auto) 4.4, Eos % (Auto) 1.0, Baso % (Auto) 1.0, Neut # (Auto) 11.8 H, Lymph # (Auto) 1.6, [place]ricks # (Auto) 0.6, Eos # (Auto) 0.2, Baso # (Auto) 0.1 01/30/22 14:45: Sodium 133 L, Potassium 6.7 H*, Chloride 103, Carbon Dioxide 20 L, Anion Gap 16.7 H, BUN 44 H, Creatinine 1.80 H, Estimated Creat Clear 31, Estimated GFR 28 L, Est GFR ( Amer) 33 L, G
[2022-01-31 11:48] LABS: POC Glucose,Bedside 120 (70-110)
[2022-01-31 12:00] VITALS: BP 118/78; PULSE 112; RESP 20; TEMP 36.6; O2SAT 98
--- NOTE | 2022-02-01 14:01 | CARE MANAGER ---
Called and spoke with patient regarding post discharge status. Tai states that she is doing well. She feels like she has more strength, and was able to get into house by her self yesterday. Patient has scheduled a f/u appointment with Dr. Mercado for the first week of February. She has no known needs at this time.
== END 2022-01-31 13:40 | disposition home or self-care (01) ==
LOC: ER 16:57 → 2ND 17:33
PROVIDERS: Admitting Provider Emergency Medicine; Emergency Provider Emergency Medicine; PCP Family Medicine; Visit Provider Emergency Medicine
DX: E87.5 Hyperkalemia (principal); Z20.822 Contact with and (suspected) exposure to COVID-19; E11.22 Type 2 diabetes mellitus with diabetic chronic kidney disease; N18.9 Chronic kidney disease, unspecified; N39.0 Urinary tract infection, site not specified; Z79.4 Long term (current) use of insulin; I48.91 Unspecified atrial fibrillation; E78.5 Hyperlipidemia, unspecified; I10 Essential (primary) hypertension; N17.9 Acute kidney failure, unspecified
CPT/HCPCS: G0378; 36415; 71045; 80048; 80053; 81001; 82962; 83605; 83735; 85025; 87040; 87086; 93005; 99285; C9803; J0696; U0003; U0005

== ENCOUNTER → 2022-05-04 11:19 | Outpatient (CLI) | payer MEDICARE, SELFPAY | PROVIDERS: PCP Family Medicine; Visit Provider Family Medicine | DX: R05.9 Cough, unspecified (principal); U07.1 COVID-19 | CPT/HCPCS: C9803; U0003; U0005 ==

== ENCOUNTER 2022-05-06 19:47 | Observation (INO) | payer MEDICARE, SELFPAY ==
[2022-05-06 19:37] VITALS: BP 137/91; PULSE 112; RESP 18; TEMP 36.6; O2SAT 98; BMI 32.5
--- NOTE | 2022-05-06 19:45 | ECG_ITS ---
APPROVED REPORT Exam: Resting ECG HR:108 bpm ECG Measurements Heart Rate 108 AXES QRSd 107 QRS 101 QT 345 T 60 QTc 408 Conclusion ATRIAL FIBRILLATION WITH RAPID VENTRICULAR RESPONSE RIGHT AXIS DEVIATION [QRS AXIS > 100] LOW QRS VOLTAGE IN PRECORDIAL LEADS [QRS DEFLECTION < 1.0 mV IN CHEST LEADS] INCOMPLETE RIGHT BUNDLE BRANCH BLOCK [90+ ms QRS DURATION, TERMINAL R IN V1/V2, 40+ ms S IN I/aVL/V4/V5/V6] POSSIBLE ANTERIOR MYOCARDIAL INFARCTION , PROBABLY OLD [30 ms Q WAVE IN V3/V4, OR R < 0.2 mV IN V4] ABNORMAL ECG UNCONFIRMED REPORT Electronically signed by : Eric Maldonado MD 05/08/2022 21:29:44
--- NOTE | 2022-05-06 19:45 | XR_ITS ---
PROCEDURE INFORMATION: Exam: XR Chest Exam date and time: 05/06/2022 8:01 PM Age: 76 years old Clinical indication: Other: Low fsbs TECHNIQUE: Imaging protocol: Radiologic exam of the chest. Views: 1 view. COMPARISON: CR XR CHEST PORTABLE 01/30/2022 3:57 PM FINDINGS: Lungs: Streaky opacity within the left mid lung zone with consolidation at the lung base. Pleural spaces: Blunting of the left costophrenic sulcus. No pneumothorax. Heart/Mediastinum: Cardiomediastinal contours are not well evaluated. Bones/joints: Degenerative changes of the shoulders. IMPRESSION: Streaky opacity within the left mid lung zone with consolidation at the lung base which may be on the basis of atelectasis or pneumonia. Follow-up to radiographic clearance is recommended.
[2022-05-06 20:10] LABS: Alanine Aminotransferase 25 U/L (12-78); Albumin Level 4.1 g/dl (3.5-5.0); Albumin/Globulin Ratio 1.3 (1.1-1.8); Alkaline Phosphatase 113 U/L (38-126); Aspartate Amino Transferase 79 U/L (14-36); Bilirubin,Total 0.9 mg/dl (0.2-1.3); Blood Urea Nitrogen 15 mg/dl (7-17); Calcium 8.6 mg/dl (8.4-10.2); Carbon Dioxide 25 mmol/L (22.0-30.0); Chloride 90 mmol/L (98-107); Creatinine Clearance Estimated 67 mL/min (50-200); Estimated Glomerular Filt Rate 98 ml/min (>60); GFR (African American) 118 ML/MIN (>60); Globulin 3.2 g/dL (1.3-3.2); Sodium 126 mmol/L (136-145); Total Protein,Serum 7.3 g/dl (6.3-8.2)
[2022-05-06 20:15] LABS: C-Reactive Protein 45.1 mg/L (0-4)
[2022-05-06 20:18] LABS: Erythrocyte Sedimentation Rate 20 mm/hr (0-30)
[2022-05-06 20:21] LABS: NT Pro Brain Natriuretic Pep. 7460 pg/mL (0-125)
[2022-05-06 20:25] LABS: POC Glucose,Bedside 186 (70-110)
[2022-05-06 20:26] LABS: Basophils # 0.1 K/mm3 (0-0.2); Basophils % 0.9 % (0.1-2.0); Eosinophils # 0.1 K/mm3 (0.0-0.4); Eosinophils % 0.9 % (0.1-12.0); Hematocrit 41.5 % (37.0-47.0); Hemoglobin 12.6 g/dL (12.2-16.2); Lymphocytes # 0.6 K/mm3 (0.7-4.5); Lymphocytes % 12.5 % (10-50); Mean Corpuscular HGB Conc 30.5 g/dL (31.8-35.4); Mean Corpuscular Hemoglobin 29.1 pg (27.0-31.2); Mean Corpuscular Volume 95.4 fl (81-99); Mean Platelet Volume 8.8 fl (7.4-10.4); Monocytes # 0.3 K/mm3 (0.1-1.0); Neutrophils # 4.1 K/mm3 (1.8-7.8); Neutrophils % 80.7 % (37.0-80.0); Platelet Count 204 K/mm3 (142-424); Red Blood Count 4.35 M/mm3 (4.20-5.40); Red Cell Distribution Width 15.7 % (11.5-17.5); White Blood Count 5.1 K/mm3 (4.8-10.8)
[2022-05-06 20:29] LABS: Procalcitonin 0.118 ng/mL (0.0-2.0)
[2022-05-06 20:36] LABS: Anion Gap 14.3 mEq/L (5-15); Potassium 3.3 mmoL/L (3.5-5.1)
[2022-05-06 20:42] LABS: Glucose 174 mg/dl (74-100)
[2022-05-06 20:43] LABS: Thyroid Stimulating Hormone 4.84 uIU/mL (0.465-4.68)
[2022-05-06 20:52] LABS: Troponin I < 0.01 ng/ml (0.00-0.034)
--- NOTE | 2022-05-06 21:18 | PC.NURSE ---
IN AND OUT CATH FOR UA, PERICARE GIVEN AND BRIEF APPLIED. COVID SWAB OBTAINED.
--- NOTE | 2022-05-06 21:22 | HMH.EDGENADL ---
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, Elevated brain natriuretic peptide (BNP) level, COVID-19 Type 2 diabetes mellitus Qualifiers: Diabetes mellitus group home insulin use: unspecified group home insulin use status Diabetes mellitus complication status: with other specified complication Qualified Code(s): E11.69 - Type 2 diabetes mellitus with other specified complication Atrial fibrillation Qualifiers: Atrial fibrillation type: unspecified chronic Qualified Code(s): I48.20 - Chronic atrial fibrillation, unspecified CHF (congestive heart failure) Qualifiers: Heart failure type: unspecified Heart failure chronicity: acute on chronic Qualified Code(s): I50.9 - Heart failure, unspecified Disposition: Admitted As Inpatient Condition on Discharge: Fair Instructions: DI for Hyperglycemia -- Adult Referrals: Sanford Olivera [Primary Care Provider] - - Critical Care Critical Care Time: No Attestation: On 05/06/22, the high probability of a clinically significant, sudden or life threatening deterioration of the following system(s) required my full and direct attention, intervention and personal management. The time I documented below is in addition to time spent performing reported procedures but includes the following listed in this critical care notation. Medical Decision Making - Medical Records Medical records reviewed: Yes: I reviewed the patient's medical records. - Frank Inquiry Pt receiving controlled substance: No Vital Signs: 05/06/22 19:37 Temperature 97.8 F Temperature Source Oral Pulse Rate [Right] 112 H Respiratory Rate 18 Blood Pressure [Right Arm] 137/91 H Blood Pressure Mean [Right Arm] 106 02 Sat by Pulse Oximetry 98 - Lab Data Lab results reviewed: Yes: I reviewed the patient's lab results. Lab Results 05/06/22 19:15: Amylase 61, Lipase 110 05/06/22 19:50: WBC 5.1, RBC 4.35, Hgb 12.6, Hct 41.5, MCV 95.4, MCH 29.1, MCHC 30.5 L, RDW 15.7, Plt Count 204, MPV 8.8, Neut % (Auto) 80.7 H, Lymph % (Auto) 12.5, [place] % (Auto) 5.0, Eos % (Auto) 0.9, Baso % (Auto) 0.9, Neut # (Auto) 4.1, Lymph # (Auto) 0.6 L, [place] # (Auto) 0.3, Eos # (Auto) 0.1, Baso # (Auto) 0.1, ESR 20 05/06/22 19:50: Sodium 126 L, Potassium 3.3 L, Chloride 90 L, Carbon Dioxide 25, Anion Gap 14.3, BUN 15, Creatinine 0.60, Estimated Creat Clear 67, Estimated GFR 98, Est GFR ( Amer) 118, Glucose 174 H, Calcium 8.6, Total Bilirubin 0.9, AST 79 H, ALT 25, Alkaline Phosphatase 113, Troponin I < 0.01, C-Reactive Protein 45.1 H, NT-Pro-B Natriuret Pep 7460 H, Total Protein 7.3, Albumin 4.1, Globulin 3.2, Albumin/Globulin Ratio 1.3, Procalcitonin 0.118, TSH 4.84 H 05/06/22 20:15: POC Glucose 186 H 05/06/22 21:00: Urine Color Yellow, Urine Appearance Clear, Urine pH 5.5, Ur Specific [place] 1.025, Urine Protein 1+, Urine Glucose (UA) 1+, Urine Ketones Negative, Urine Blood Trace-i, Urine Nitrate Negative, Urine Bilirubin Negative, Urine Urobilinogen 0.2, Ur Leukocyte Esterase Negative, Urine RBC Occasional, Amorphous Sediment Trace 05/06/22 21:00: SARS-CoV-2 (PCR) Detected A, Influenza A Untype (PCR) Not detected, Influenza Type B (PCR) Not detected Result diagrams: 05/06/22 19:50 05/06/22 19:50 Orders (Tests/Meds): ED MEDICATIONS Generic Name Dose Route Start Last Admin Trade Name Freq PRN Reason Stop Dose Admin Sodium Chloride 1,000 mls @ 999 mls/hr 05/06/22 20:00 05/06/22 19:57 Sod Chlor 0.9% 1000ml Bag IV 05/06/22 21:00 999 mls/hr .Q1H1M NILE Administration Discontinued Medications Generic Name Dose Route Start Last Admin Trade Name Freq PRN Reason Stop Dose Admin Dextrose 50 ml 05/06/22 19:55 05/06/22 19:57 Dextrose 50% 50ml Syringe (Crash Cart) IVP 05/06/22 19:56 50 ml ONCE ONE Administration ORDERS Category Date Time Status Troponin I Q3H Lab 05/06/22 23:00 Ordered Troponin I Q3H Lab 05/07/22 02:00 Ordered
--- NOTE | 2022-05-06 21:24 | CT_ITS ---
PROCEDURE INFORMATION: Exam: CT Abdomen And Pelvis Without Contrast Exam date and time: 05/06/2022 9:35 PM Age: 76 years old Clinical indication: Bloating TECHNIQUE: Imaging protocol: Computed tomography of the abdomen and pelvis without contrast. Radiation optimization: All CT scans at this facility use at least one of these dose optimization techniques: automated exposure control; mA and/or kV adjustment per patient size (includes targeted exams where dose is matched to clinical indication); or iterative reconstruction. COMPARISON: CT ABDOMEN PELVIS WO CON 12/17/2021 9:35 PM FINDINGS: Lungs: Left-sided effusion with basal consolidation. Liver: Parenchymal enhancement is not evaluated without contrast. No hepatomegaly. Gallbladder and bile ducts: No calcified stones. No ductal dilation. Pancreas: Parenchymal enhancement is not evaluated without contrast. No ductal dilation. Spleen: Parenchymal enhancement is not evaluated without contrast. No splenomegaly. Adrenal glands: No mass. Kidneys and ureters: Parenchymal enhancement is not evaluated without contrast. No hydronephrosis. Stomach and bowel: Diverticulosis coli without evidence for diverticulitis. Appendix: No evidence of appendicitis. Intraperitoneal space: Small volume ascites. Vasculature: Calcified atherosclerosis. No aneurysm. Lymph nodes: No enlarged lymph nodes. Urinary bladder: No acute abnormality. Reproductive: No acute abnormality. Bones/joints: No acute fracture. Soft tissues: 3.1 cm fat and fluid containing right groin hernia. IMPRESSION: 1. Left-sided effusion with basal consolidation. 2. Small volume ascites. 3. Diverticulosis coli without evidence for diverticulitis. 4. 3.1 cm fat and fluid containing right groin hernia.
[2022-05-06 21:26] LABS: Influenza A, PCR Not Detected (NotDetected); Influenza B, PCR Not Detected (NotDetected); Microscopic, Urine URINE MICROSCOPIC (MICROSCOPIC)
[2022-05-06 21:38] LABS: Amylase 61 U/L (30-110); Lipase 110 U/L (23-300)
[2022-05-06 21:40] LABS: Appearance,Urine CLEAR (Clear); Bilirubin,Urine Negative (Negative); Blood, Urine TRACE-I (Negative); Color,Urine YELLOW (Yellow); Glucose,Urine (UA) 1+ (Negative); Ketones,Urine Negative (Negative); Leukocyte Esterase,Urine Negative (Negative); Nitrate,Urine Negative (Negative); PH,Urine 5.5 (5.0-8.5); Protein,Urine 1+ (Negative); Specific Gravity, Urine 1.025 (1.005-1.030); Urobilinogen,Urine 0.2 EU/dl (0.2)
[2022-05-06 21:43] LABS: Amorphous Sediment,Urine Trace /lpf; RBC,Urine Occasional #/hpf (0-3)
[2022-05-06 22:07] LABS: Coronavirus 19, PCR Detected (NotDetected)
[2022-05-06 22:42] VITALS: BMI 32.3
[2022-05-06 22:53] VITALS: BP 157/91; PULSE 108; RESP 18; TEMP 36.6; O2SAT 98
--- NOTE | 2022-05-06 23:05 | PC.NURSE ---
PT ARRIVED TO FLOOR VIA STRETCHER FROM ED @ [id number]
[2022-05-06 23:23] LABS: Troponin I < 0.01 ng/ml (0.00-0.034)
[2022-05-07] VITALS: BP 144/80; PULSE 98; RESP 17; TEMP 36.8; O2SAT 96
[2022-05-07 00:01] VITALS: PULSE 130
[2022-05-07 02:40] LABS: POC Glucose,Bedside 130 (70-110)
[2022-05-07 02:41] LABS: Troponin I < 0.01 ng/ml (0.00-0.034)
[2022-05-07 04:00] VITALS: BP 140/66; PULSE 68; PULSE 90; RESP 17; TEMP 36.6; O2SAT 94
--- NOTE | 2022-05-07 04:53 | PC.NURSE ---
New admit this shift. Pt alert and oriented x 4. Pt is on RA, intermittent, dry cough noted. Lungs sounds are diminished bilaterally. ABD is large, distended, non-tender. BS active x 4. Pt did have a CT for ABD/pelvis in ED. Pt states her last BM was yesterday. Edema noted to bilateral lower extremities. Pt is voiding per maxwell cath with good urine output. Iv infusing per order. Pt is being monitored via tele. fisher scallop notified of uncontrolled A-fib. New orders received. Checking FSBS q6hrs. At 0230 blood sugar was 130. Call light in reach. Bed alarm on for safety. No other needs voiced at this time.
[2022-05-07 05:00] VITALS: BMI 32.3
[2022-05-07 06:53] LABS: Basophils # 0.1 K/mm3 (0-0.2); Basophils % 1.5 % (0.1-2.0); Eosinophils # 0.1 K/mm3 (0.0-0.4); Eosinophils % 1.2 % (0.1-12.0); Lymphocytes # 0.7 K/mm3 (0.7-4.5); Lymphocytes % 14.5 % (10-50); Mean Corpuscular Hemoglobin 29.3 pg (27.0-31.2); Mean Corpuscular Volume 91.6 fl (81-99); Mean Platelet Volume 9.1 fl (7.4-10.4); Monocytes # 0.4 K/mm3 (0.1-1.0); Monocytes % 7.1 % (1.7-9.3); Neutrophils # 3.8 K/mm3 (1.8-7.8); Neutrophils % 75.6 % (37.0-80.0); Platelet Count 199 K/mm3 (142-424); Red Blood Count 3.82 M/mm3 (4.20-5.40); Red Cell Distribution Width 16.1 % (11.5-17.5)
[2022-05-07 06:55] LABS: Hemoglobin 11.1 g/dL (12.2-16.2)
[2022-05-07 07:05] LABS: Anion Gap 9.5 mEq/L (5-15); Blood Urea Nitrogen 12 mg/dl (7-17); Calcium 8.1 mg/dl (8.4-10.2); Carbon Dioxide 29 mmol/L (22.0-30.0); Chloride 93 mmol/L (98-107); Creatinine Clearance Estimated 67 mL/min (50-200); Estimated Glomerular Filt Rate 98 ml/min (>60); GFR (African American) 118 ML/MIN (>60); Glucose 86 mg/dl (74-100); Magnesium 1.4 mg/dl (1.6-2.3); Potassium 3.5 mmoL/L (3.5-5.1); Sodium 128 mmol/L (136-145)
--- NOTE | 2022-05-07 07:31 | P.CONPHA_ITS ---
[facility] Pharmacy VTE Monitoring - Patient Demographics Admission date: 05/07/22 Report Date: 05/07/22 Time: 07:31 Allergies/Adverse Reactions: Patient Allergies amiodarone Allergy (Verified 05/04/22 14:16) [id number] Reductase Inhibitor Allergy (Verified 05/06/22 21:19) Height: 1.63 m Weight: 85.865 kg Patient Problems: Current Active Problems COVID-19 (Acute) CHF (congestive heart failure) (Acute) Atrial fibrillation (Acute) Hypothyroidism (acquired) (Chronic) Type 2 diabetes mellitus (Chronic) Elevated brain natriuretic peptide (BNP) level (Acute) FDC current use of anticoagulant (Chronic) Hypoglycemia (Acute) - VTE Risk Labs: VTE Related Lab Results Hgb 11.1 g/dL (12.2-16.2) L D 05/07/22 06:39 Hct 35.0 % (37.0-47.0) L 05/07/22 06:39 Plt Count 199 K/mm3 (142-424) 05/07/22 06:39 BUN 12 mg/dl (7-17) 05/07/22 06:39 Creatinine 0.60 mg/dl (0.52-1.04) 05/07/22 06:39 Estimated Creat Clear 67 mL/min (50-200) 05/07/22 06:39 VTE Score: 6 VTE Risk Level: Moderate Risk Clinical Trial Participant: No - Prophylaxis VTE Prophylaxis Ordered?: Yes Types of VTE Prophylaxis: TEDS Knee High, Pharmacological Pharmacologic Type: Other (xarelto)
--- NOTE | 2022-05-07 07:33 | HMH.PHAINT ---
home medication list verified using list from [facility]
[2022-05-07 08:00] VITALS: BP 153/82; PULSE 110; RESP 16; TEMP 36.8; O2SAT 97
--- NOTE | 2022-05-07 08:06 | HMH.HPDC ---
General - General Admission date:: 05/06/22 Discharge date: 05/07/22 *Admission Date: 05/07/22 *Chief complaint: Weakness and hypoglycemia *History of present illness: 76-year-old white female with multiple medical problems including type 2 diabetes, hyperlipidemia, diastolic CHF and history of electrolyte disturbances who was at her home yesterday relaxing and convalescing after being diagnosed with COVID-19 per home test after a couple of days of mild cough and cold symptoms. Her noticed that she became unresponsive and that my eyes rolled back in my head and he thought I had . He called EMS and they were able to arouse her but did note that her glucose level was in the 40s. IV was started, glucose containing fluids were given and she was transported to the hospital. In the hospital ER work-up was done, noted to be mildly hyponatremic, noted to have significant elevation of BNP and had fluid on her chest with a mild pleural effusion and cephalization of markings. Admitted to hospital for diuresis and further evaluation. [facility] History I have reviewed the patient's past medical history: Yes Medical History: Reports:: Arrhythmia, Atrial Fibrillation, Congestive Heart Failure, Diabetes Mellitus Type 2, Gastroesophageal Reflux Disease(GERD), Hyperlipidemia, Hypertension, Palpitations Denies:: Cancer, Diabetes Mellitus Type 1, MRSA, Seizures, Valvular Heart Disease *Have you ever received a pneumonia vaccine?: Yes *Have you received a flu vaccine this season?: Yes Other Medical History: Reports: Arthritis, Cataracts, Glaucoma, Hypothyroidism, Thyroid Disease Other Surgeries: Yes: Appendectomy, Cardiac Catheterization, Cholecystectomy, Tubal Ligation Amputation: No Fractures: No - *Social History Last grade of school completed: Advanced degree Smoking Status: Never smoker Alcohol Intake: never Substance Use Type: denies use *Occupational Status:: retired Housing: house Household Members: spouse *Travel in the last 8 weeks: None Family Hx:: Diabetes Review of Systems - Review of Systems Review of systems:: pertinent systems reviewed and negative unless documented below - *Neurologic Denies seizure-like activity Exam Vital signs and Labs for Last 24 Hours: Temp Pulse Resp BP Pulse Ox 98 F 68 17 140/66 94 L 05/07/22 04:00 05/07/22 04:00 05/07/22 04:00 05/07/22 04:00 05/07/22 04:00 Laboratory Results - last 24 hr 05/06/22 19:15: Amylase 61, Lipase 110 05/06/22 19:50: WBC 5.1, RBC 4.35, Hgb 12.6, Hct 41.5, MCV 95.4, MCH 29.1, MCHC 30.5 L, RDW 15.7, Plt Count 204, MPV 8.8, Neut % (Auto) 80.7 H, Lymph % (Auto) 12.5, [place] % (Auto) 5.0, Eos % (Auto) 0.9, Baso % (Auto) 0.9, Neut # (Auto) 4.1, Lymph # (Auto) 0.6 L, [place] # (Auto) 0.3, Eos # (Auto) 0.1, Baso # (Auto) 0.1, ESR 20 05/06/22 19:50: Sodium 126 L, Potassium 3.3 L, Chloride 90 L, Carbon Dioxide 25, Anion Gap 14.3, BUN 15, Creatinine 0.60, Estimated Creat Clear 67, Estimated GFR 98, Est GFR ( Amer) 118, Glucose 174 H, Calcium 8.6, Total Bilirubin 0.9, AST 79 H, ALT 25, Alkaline Phosphatase 113, Troponin I < 0.01, C-Reactive Protein 45.1 H, NT-Pro-B Natriuret Pep 7460 H, Total Protein 7.3, Albumin 4.1, Globulin 3.2, Albumin/Globulin Ratio 1.3, Procalcitonin 0.118, TSH 4.84 H 05/06/22 20:15: POC Glucose 186 H 05/06/22 21:00: Urine Color Yellow, Urine Appearance Clear, Urine pH 5.5, Ur Specific [place] 1.025, Urine Protein 1+, Urine Glucose (UA) 1+, Urine Ketones Negative, Urine Blood Trace-i, Urine Nitrate Negative, Urine Bilirubin Negative, Urine Urobilinogen 0.2, Ur Leukocyte Esterase Negative, Urine RBC Occasional, Amorphous Sediment Trace 05/06/22 21:00: SARS-CoV-2 (PCR) Detected A, Influenza A Untype (PCR) Not detected, Influenza Type B (PCR) Not detected 05/06/22 22:48: Troponin I < 0.01 05/07/22 01:53: Troponin I < 0.01 05/07/22 02:32: POC Glucose 130 H 05/07/22 06:39: WBC 5.0, RBC 3.82 L, Hgb 11.1 L D, Hct 35.0 L, MCV 91.6, MCH 29.
--- NOTE | 2022-05-08 15:50 | CARE MANAGER ---
Spoke with patient for post-discharge phone interview, he states that she is doing well and her symptoms are improving, she has her follow-up appointments.
== END 2022-05-07 10:45 | disposition home or self-care (01) ==
LOC: ER 20:24 → 2ND 22:28
PROVIDERS: Admitting Provider Internal Medicine Adolescent Medicine; Emergency Provider Emergency Medicine; PCP Family Medicine; Visit Provider Internal Medicine Adolescent Medicine
DX: U07.1 COVID-19 (principal); I50.30 Unspecified diastolic (congestive) heart failure; I48.20 Chronic atrial fibrillation, unspecified; I11.0 Hypertensive heart disease with heart failure; E03.9 Hypothyroidism, unspecified; Z79.4 Long term (current) use of insulin; K21.9 Gastro-esophageal reflux disease without esophagitis; E78.5 Hyperlipidemia, unspecified; Z79.01 Long term (current) use of anticoagulants; E11.65 Type 2 diabetes mellitus with hyperglycemia
CPT/HCPCS: G0378; 51702; 71045; 74176; 80048; 80053; 81001; 82150; 82962; 83690; 83735; 83880; 84145; 84443; 84484; 85025; 85651; 86140; 93005; 93306; 99285; C9803; U0003; U0005

== ENCOUNTER → 2022-05-23 10:38 | Outpatient (CLI) | payer MEDICARE, SELFPAY ==
--- NOTE | 2022-05-23 10:46 | XR_ITS ---
FINAL REPORT CLINICAL HISTORY: PLEURAL EFFUSION COMPARISON: May 06, 2022 FINDINGS: Two views of the chest were obtained. There is cardiomegaly. The mediastinum is normal. There are left lung base opacities favoring atelectasis. There is a moderate left pleural effusion which has improved since the prior exam. There is no pneumothorax. The bony thorax is intact. IMPRESSION: Moderate left pleural effusion, improved. Left lung base opacities favoring atelectasis. Reviewed, Interpreted and Dictated by Jimmy Miller III, MD Transcribed by Delilah Corea Authenticated and [facility]
== END ==
PROVIDERS: PCP Family Medicine; Visit Provider Family Medicine
DX: J90 Pleural effusion, not elsewhere classified (principal)
CPT/HCPCS: 71046

== ENCOUNTER → 2022-06-07 10:41 | Outpatient (CLI) | payer MEDICARE, SELFPAY ==
--- NOTE | 2022-06-07 10:47 | XR_ITS ---
FINAL REPORT TECHNIQUE: Chest PA & Lateral CLINICAL HISTORY: PLEURAL EFFUSION COMPARISON: May 23, 2022 FINDINGS: 2 views of the chest were performed. The heart size is normal. The mediastinum is within normal limits. There is left lower lobe consolidation with a moderate pleural effusion. There is patchy airspace opacity in the left lung base. There is no pneumothorax. The bony thorax appears intact. IMPRESSION: Left lower lobe consolidation with moderate left pleural effusion. Reviewed, Interpreted and Dictated by Conor Gillis MD Transcribed by Arron Wilcox Authenticated and [facility]
== END ==
PROVIDERS: PCP Family Medicine; Visit Provider Family Medicine
DX: J90 Pleural effusion, not elsewhere classified (principal)
CPT/HCPCS: 71046

== ENCOUNTER → 2022-06-27 10:55 | Outpatient (CLI) | payer MEDICARE, SELFPAY ==
--- NOTE | 2022-06-27 11:04 | XR_ITS ---
FINAL REPORT TECHNIQUE: Chest PA & Lateral CLINICAL HISTORY: PLEURAL EFFUSION COMPARISON: June 07, 2022 FINDINGS: 2 views of the chest were performed. The heart size is normal. The mediastinum is within normal limits. There is left lung base atelectasis. A moderate left pleural effusion is similar to the prior exam. There is no pneumothorax. The bony thorax appears intact. IMPRESSION: Moderate left pleural effusion, similar to prior. Reviewed, Interpreted and Dictated by Jimmy Miller III, MD Transcribed by Arron Wilcox Authenticated and [facility]
== END ==
PROVIDERS: PCP Family Medicine; Visit Provider Family Medicine
DX: J90 Pleural effusion, not elsewhere classified (principal)
CPT/HCPCS: 71046